=== PATIENT | female | born 1940 ===

== ENCOUNTER 2017-05-08 10:28 | Inpatient (IN) | payer MEDICARE, BC ==
[2017-05-08 10:29] VITALS: BMI 31.2
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
[2017-05-08 11:31] LABS: BASO # 0.03 K/mm3 (0.0-2.0); BASO % 0.3 % (0.0-3.0); EOS # 0.7 (0.0-0.7); EOS % 6.7 % (1.5-5.0); GRAN # 6.85 (1.4-6.5); GRAN % 70.6 % (50.0-68.0); HEMATOCRIT 40.7 % (36.0-48.0); LYMPH # 1.7 (1.2-3.4); LYMPH % 17.5 % (22.0-35.0); MEAN CELL VOLUME 91.7 fl (80.0-105.0); MEAN CORPUSCULAR HEMOGLOBIN 29.1 pg (25.0-35.0); MEAN CORPUSCULAR HGB CONC 31.7 g/dl (31.0-37.0); MONO # 0.5 (0.1-0.6); MONO % 4.9 % (1.0-6.0); RED CELL DISTRIBUTION WIDTH 13.6 % (11.5-14.5); WHITE BLOOD COUNT 9.7 10^3/ul (4.5-11.0)
[2017-05-08 11:37] LABS: ALB/GLOB RATIO 1.3 (1.1-1.8); BILIRUBIN,TOTAL 0.6 mg/dL (0.2-1.3); CALCIUM 9.4 mg/dL (8.4-10.5); POTASSIUM 4.3 mmol/L (3.6-5.0); TOTAL PROTEIN 6.5 g/dL (5.8-8.3)
[2017-05-08] MEDS: Albuterol-Ipratrop 3 mg / 0.5 (3 ml) UD IH SCH ×3 (11:37→12:10)
[2017-05-08 11:49] LABS: TROPONIN I 0.04 ng/mL
--- NOTE | 2017-05-08 12:44 | RAD ---
HISTORY: cough x 2 weeks COMPARISON: Comparison is made to 08/06/2016 FINDINGS: LUNGS: Prominent hilar and perihilar small opacities may represent bronchial thickening. The possibility of bronchitis cannot be excluded. No radiographic evidence of pneumonia. PLEURA: No significant pleural effusion identified, no pneumothorax apparent. CARDIOVASCULAR: Normal. OSSEOUS STRUCTURES: No significant abnormalities. VISUALIZED UPPER ABDOMEN: Normal. OTHER FINDINGS: None. IMPRESSION: Suspicious for central bronchial wall thickening. No radiographic evidence of pneumonia.
[2017-05-08 12:47] LABS: URINE BILIRUBIN NEGATIVE (NEGATIVE); URINE BLOOD NEGATIVE (NEGATIVE); URINE GLUCOSE (UA) NEGATIVE (NEGATIVE); URINE KETONE NEGATIVE (NEGATIVE); URINE LEUKOCYTE ESTERASE NEGATIVE Leu/uL (NEGATIVE); URINE PROTEIN NEGATIVE mg/dL (<30 mg/dL); URINE UROBILINOGEN 0.2 E.U./dL (<1 E.U./dL)
[2017-05-08 12:49] LABS: URINE APPEARANCE CLEAR (CLEAR); URINE COLOR YELLOW (YELLOW)
[2017-05-08] MEDS ORDERED: Albuterol 0.083% Inhal Sol (2.5 mg/3 mL) UD IH PRN (20:37)
[2017-05-08] MEDS: Latanoprost 2.5 ml Opht Soln OD SCH (21:04)
[2017-05-08] MEDS: Brimonidine 0.15% 50 DROP/5 ML BOTTLE OD SCH (21:04)
[2017-05-09] MEDS ORDERED: Albuterol 0.083% Inhal Sol (2.5 mg/3 mL) UD IH SCH
--- NOTE | 2017-05-09 02:59 | CP.PCM.PN ---
Subjective - Date & Time of Evaluation Date of Evaluation: 05/09/17 Time of Evaluation: 02:59 - Subjective Subjective: Patient was seen at bedside because she had runs of VTACH, 5 & 6 beats. Complains of some sob and is receiving nebulizer treatment now. Has no other complaints. Denies chest pain, nausea , sweating , palpitation. Medical record was reviewed. Last troponin was 0.04. This 77 year old woman was admitted with productive cough and sob, CHF/COPD exacerbation. Has PMH of COPD,DM II, CHF, obesity, EDNA, CVA, carpal tunnel syndrome, cataract , tonsillectomy. Objective - Vital Signs/Intake and Output Vital Signs (last 24 hours): Temp Pulse Resp BP Pulse Ox 98.1 F 87 20 115/46 L 95 05/09/17 00:01 05/09/17 00:01 05/09/17 00:01 05/09/17 00:01 05/09/17 00:01 - Medications Medications: Current Medications Albuterol Sulfate (Albuterol 0.083% Inhal Isabel (2.5 Mg/3 Ml) Ud) 2.5 mg IH Q6 [facility] Aspirin (Ecotrin) 81 mg PO DAILY [facility] Brimonidine Tartrate (Alphagan P 0.15% Opht) 1 drop OD BID [facility] Last Admin: 05/08/17 21:04 Dose: 1 drop Glipizide (Glucotrol) 5 mg PO DAILY [facility] Home Med (Home Med) 1 unit IH DAILY [facility] Azithromycin 250 mg/ Sodium (Chloride) 250 mls @ 167 mls/hr IVPB DAILY [facility] PRN Reason: Protocol Latanoprost (Xalatan Opht) 0 ml OD HS [facility] Last Admin: 05/08/17 21:04 Dose: 2.5 ml Metformin HCl (Glucophage Xr) 500 mg PO DAILY [facility] Multivitamins (Thera Tab) 1 tab PO DAILY [facility] Psyllium Hydrophilic Mucilloid (Hydrocil Instant) 1 pkt PO DAILY [facility] Tiotropium [place] (Spiriva) 18 mcg IH DAILY [facility] - Labs Labs: Most Recent Lab Values WBC 11.5 10^3/ul (4.5-11.0) H 05/09/17 03:07 RBC 4.41 10^6/uL (3.5-6.1) 05/09/17 03:07 Hgb 12.8 g/dL (12.0-16.0) 05/09/17 03:07 Hct 39.8 % (36.0-48.0) 05/09/17 03:07 MCV 90.2 fl (80.0-105.0) 05/09/17 03:07 MCH 29.0 pg (25.0-35.0) 05/09/17 03:07 MCHC 32.2 g/dl (31.0-37.0) 05/09/17 03:07 RDW 13.3 % (11.5-14.5) 05/09/17 03:07 Plt Count 228 10^3/uL (120.0-450.0) 05/09/17 03:07 MPV 11.7 fl (7.0-11.0) H 05/09/17 03:07 Gran % 92.4 % (50.0-68.0) H 05/09/17 03:07 Lymph % (Auto) 4.8 % (22.0-35.0) L 05/09/17 03:07 [place] % (Auto) 2.8 % (1.0-6.0) 05/09/17 03:07 Eos % (Auto) 0.0 % (1.5-5.0) L 05/09/17 03:07 Baso % (Auto) 0.0 % (0.0-3.0) 05/09/17 03:07 Gran # 10.60 (1.4-6.5) H 05/09/17 03:07 Lymph # 0.6 (1.2-3.4) L 05/09/17 03:07 [place] # 0.3 (0.1-0.6) 05/09/17 03:07 Eos # 0.0 (0.0-0.7) 05/09/17 03:07 Baso # 0.00 K/mm3 (0.0-2.0) 05/09/17 03:07 Sodium 141 mmol/L (132-148) 05/08/17 11:15 Potassium 4.3 mmol/L (3.6-5.0) 05/08/17 11:15 Chloride 103 mmol/L (98-107) 05/08/17 11:15 Carbon Dioxide 32 mmol/L (21-33) 05/08/17 11:15 Anion Gap 10 (10-20) 05/08/17 11:15 BUN 24 mg/dL (7-21) H 05/08/17 11:15 Creatinine 1.1 mg/dL (0.7-1.2) 05/08/17 11:15 Est GFR ( Amer) 58 05/08/17 11:15 Est GFR (Non-Af Amer) 48 05/08/17 11:15 Random Glucose 184 mg/dL (70-110) H 05/08/17 11:15 Calcium 9.4 mg/dL (8.4-10.5) 05/08/17 11:15 Total Bilirubin 0.6 mg/dL (0.2-1.3) 05/08/17 11:15 AST 24 U/L (14-36) 05/08/17 11:15 ALT 35 U/L (7-56) 05/08/17 11:15 Alkaline Phosphatase 66 U/L (38-126) 05/08/17 11:15 Lactate Dehydrogenase 384 U/L (333-699) 05/08/17 11:15 Total Creatine Kinase 26 U/L (35-230) L 05/08/17 11:15 Troponin I 0.04 ng/mL D 05/08/17 11:15 NT-Pro-B Natriuret Pep 1120 pg/mL (0-450) H 05/08/17 11:15 Total Protein 6.5 g/dL (5.8-8.3) 05/08/17 11:15 Albumin 3.7 g/dL (3.0-4.8) 05/08/17 11:15 Globulin 2.8 gm/dL 05/08/17 11:15 Albumin/Globulin Ratio 1.3 (1.1-1.8) 05/08/17 11:15 Urine Color Yellow (YELLOW) 05/08/17 11:10 Urine Appearance Clear (CLEAR) 05/08/17 11:10 Urine pH 6.0 (4.7-8.0) 05/08/17 11:10 Ur Specific [place] 1.020 (1.005-1.035) 05/08/17 11:10 Urine Protein Negative mg/dL (<30 mg/dL) 05/08/17 11:10 Urine Glucose (UA) Negative mg/dL (NEGATIVE) 05/08/17 11:10 Urine Ketones Negative mg/dL (NEGATIVE) 05/08/17 11:10 Urine Blood Negative (NEGATIVE) 05/08/17 11:10 Urine Nitrate Negative (NEGATIVE) 05/08/17 11:10 Urine Bilirubin Negative (NEGATIVE) 05/08/17 11:10 Urine Urobilinogen 0.2 E.U./dL (<1 E.U./dL) 05/08/17 11:10 Ur Leukocyte Esterase Negative [place]/uL (NEGATIVE) 05/08/17 11:10 - Constitutional Appears: Well, No Acute Distress - Head Exam Head Exam: ATRAUMATIC, NORMAL INSPECTION, NORMOCEPHALIC Additional comments: Obese. - Eye Exam Eye Exam: Normal appearance - ENT Exam ENT Exam: Normal External Ear Exam - Neck Exam Neck Exam: Normal Inspection - Respiratory Exam Respiratory Exam: NORMAL BREATHING PATTERN - Cardiovascular Exam Cardiovascular Exam: absent: JVD - GI/Abdominal Exam GI & Abdominal Exam: absent: Distended - Rectal Exam Rectal Exam: Deferred - Exam Additional comments: Deferred. - Extremities Exam Extremities Exam: Normal Inspection - Back Exam Back Exam: NORMAL INSPECTION - Neurological Exam Neurological Exam: Alert, Oriented x3 - Psychiatric Exam Psychiatric exam: Normal Affect, Normal Mood - Skin Skin Exam: Normal Color Assessment and Plan - Assessment and Plan (Free Text) Assessment: Non sustained ventricular tachycardia. R/O Electrolyte imbalance. R/O elevation of troponin. CHF/COPD exacerbation. DM II. HTN. Obesity. EDNA. Plan: Cancel AM labs. CBC,CMP , troponin , magnesium, phosphorous levels stat. EKG-----------> NSR, new inversion of T wave in lead III, ? avF. Continue present management.
[2017-05-09 03:23] LABS: GRAN % 92.4 % (50.0-68.0); HEMATOCRIT 39.8 % (36.0-48.0); LYMPH # 0.6 (1.2-3.4); LYMPH % 4.8 % (22.0-35.0); MEAN CELL VOLUME 90.2 fl (80.0-105.0); MEAN CORPUSCULAR HGB CONC 32.2 g/dl (31.0-37.0); MEAN PLATELET VOLUME 11.7 fl (7.0-11.0); MONO # 0.3 (0.1-0.6); MONO % 2.8 % (1.0-6.0); PLATELET COUNT 228 10^3/uL (120.0-450.0); RED CELL DISTRIBUTION WIDTH 13.3 % (11.5-14.5); WHITE BLOOD COUNT 11.5 10^3/ul (4.5-11.0)
[2017-05-09 04:01] LABS: ALB/GLOB RATIO 1.2 (1.1-1.8); BILIRUBIN,TOTAL 0.7 mg/dL (0.2-1.3); CALCIUM 9.5 mg/dL (8.4-10.5); MAGNESIUM 1.5 mg/dL (1.7-2.2); PHOSPHOROUS 3.4 mg/dL (2.5-4.5); POTASSIUM 5.2 mmol/L (3.6-5.0); TOTAL PROTEIN 6.7 g/dL (5.8-8.3)
[2017-05-09] MEDS ORDERED: Sod Polystyrene Sulf 15 gm/60 ml Susp PO ONE (04:08)
[2017-05-09] MEDS ORDERED: Magnesium Sulfate 1 gm in D5W 1 GM/100 ML BAG IVPB ONE (04:08)
[2017-05-09 04:12] LABS: TROPONIN I 0.03 ng/mL
[2017-05-09 05:50] LABS: BAND 1 % (0-2); NEUTROPHIL 94 % (50.0-70.0); PLATELET ESTIMATE NORMAL (NORMAL)
[2017-05-09] MEDS ORDERED: Levalbuterol 0.63 MG/3 ML Inhal Soln UD IH PRN (06:54)
--- NOTE | 2017-05-09 07:31 | CON ---
PULMONARY CONSULTATION REASON FOR CONSULTATION: Chronic obstructive pulmonary disease. REFERRING PHYSICIAN: Dr. Taj York. HISTORY OF PRESENT ILLNESS: The patient is a 77-year-old female, with past medical history significant for chronic obstructive pulmonary disease, asthma, obstructive sleep apnea, diabetes mellitus, who presents to [facility] with main complaints of shortness of breath at rest, dyspnea on exertion, cough, and sputum production for the past 2 weeks. There is no history of chest pain, coughing up of blood, or chest pain-made worse with deep respirations. There is no history of temperatures, chills or infectious exposure. There is no history of night sweats, weight loss or appetite change prior to the above events. No history of leg or calf pains. No history of syncope or diaphoresis. No history of recent travel or trauma. REVIEW OF SYSTEMS: No history of nausea, vomiting or diarrhea. No acute urinary symptoms. No new neurologic or musculoskeletal complaints. Rest of the review of systems is negative. ALLERGIES: PENICILLIN AND LYRICA. SOCIAL HISTORY: Negative for tobacco and negative for alcohol. FAMILY HISTORY: No inheritable diseases. HOME MEDICATIONS: Include metformin, glipizide, aspirin, Combivent, Anoro Ellipta, vitamin, Spiriva. PHYSICAL EXAMINATION: GENERAL: The patient is not short of breath at the time of my examination. She is not using accessory muscles for breathing. VITAL SIGNS: Temperature is 97.6, pulse 83, respirations 18/20, blood pressure 160/67. Oxygen saturation on nasal cannula is between 95% to 100%. HEENT: Normocephalic, atraumatic. NECK: No JVD. CARDIOVASCULAR: Systolic ejection murmur at the lower left sternal border. No S3 gallop. LUNGS: Decreased breath sounds at the bases. Mild bilateral rhonchi and wheezing are appreciated. EXTREMITIES: Mild edema. No cyanosis, no clubbing. Calves are nontender to palpation. GI: Abdomen is soft, nontender and nondistended. Bowel sounds are positive. SKIN: No acute rash. NEUROLOGIC: Limited at the present time. PERTINENT LABORATORY DATA: Chest x-ray was done yesterday and reviewed. There is no acute disease. CBC: White count 11.5K, hemoglobin 12.8, hematocrit 39.8, platelets of 228. Initial white count 9.7K. Complete metabolic profile: Potassium 5.2, BUN 33, glucose 234, magnesium 1.5, troponin 0.03. Rest of the metabolic profile is within normal limits. Initial troponin 0.04. IMPRESSION: 1. Acute bronchitis. 2. Asthma. 3. Chronic obstructive pulmonary disease. 4. Obstructive sleep apnea. 5. Intermediate troponin. 6. Nonsustained ventricular tachycardia. PLAN: The patient presents to [facility] with a 2-week history of worsening pulmonary symptoms. I did review the chest x-ray as above. There is no active disease present. I have also reviewed the laboratory data. A mild leukocytosis is noted. Keep in mind--that the initial white count was normal. Thus, the mild rise in the white count is probably secondary to the intravenous steroids. I have also reviewed the metabolic profile. An intermediate troponin is noted. In addition, I did review all of the notes in the computer. Apparently, earlier this morning, the patient did have a short run of nonsustained ventricular tachycardia. Cardiology evaluation with Dr. Clark has been ordered. As a first step, I will change the nebulizer treatments to Xopenex-given the above cardiac arrhythmias. I will also add inhaled steroids and low-dose intravenous steroids-in an attempt to treat the acute bronchospasm. The patient also remains on antibiotic therapy, which I would continue for now. The patient does state to feeling much better this morning-compared to the past few days. She is clinically improved. I will discuss the above with the attending physician later this morning. Thank you very much for this pulmonary consultation. Gonsalo Lawrence MD MTDYashira
[2017-05-09] MEDS: Budesonide 0.5 mg/2 ml Inhal Susp UD IH SCH ×2 (07:43→21:18)
[2017-05-09] MEDS: Levalbuterol 0.63 MG/3 ML Inhal Soln UD IH SCH ×3 (07:43→21:18)
[2017-05-09] MEDS: Multivitamin Therapeutic Tab PO SCH (09:05)
[2017-05-09] MEDS: Brimonidine 0.15% 50 DROP/5 ML BOTTLE OD SCH ×2 (09:05→17:20)
[2017-05-09] MEDS: Azithromycin 250 MG in Sodium Chloride 0.9% 250 ML IVPB SCH (09:06)
[2017-05-09] MEDS: Tiotropium 18 mcg Cap For Inhalation IH SCH (09:07)
[2017-05-09] MEDS: MethylPREDNISolone 40 mg Vial IVP SCH ×2 (09:07→21:48)
[2017-05-09] MEDS: ALBUTEROL IH SCH (09:09)
[2017-05-09] MEDS: IPRATROPIUM IH SCH (09:09)
[2017-05-09] MEDS: Psyllium Packet PO SCH (09:49)
--- NOTE | 2017-05-09 10:16 | CARD ---
APPROVED REPORT EKG Measurement Heart [id number] <Conclusion> Normal sinus rhythm Left axis deviation Minimal voltage criteria for LVH, may be normal variant Septal infarct, age undetermined Possible Lateral infarct, age undetermined Abnormal ECG
--- NOTE | 2017-05-09 13:09 | PN ---
DAILY PROGRESS NOTE DATE: SUBJECTIVE: The patient is a 77-year-old female who was admitted yesterday with COPD exacerbation. She is known to have a history of asthma/COPD as well as sleep apnea. She has a history of [id number] diabetes mellitus. She was evaluated by Dr. García, the recovery coach and Dr. Lawrence, the shipping support clerk. CURRENT MEDICATIONS: Include Alphagan eye drops as well as Xalatan eye drops. She is on azithromycin 250 mg intravenously once a day. She is continuing with aspirin, Glucophage, Glucotrol, and psyllium. She was started on Pulmicort Respules every 12 hours and Solu-Medrol 40 mg IV q.12 hours. When seen today, the patient is sitting up at bedside. She is feeling well. She does not appear in any distress or short of breath. PHYSICAL EXAMINATION: LUNGS: Clear on pulmonary auscultation. HEART: Regular. ABDOMEN: Soft and nontender. ASSESSMENT AND PLAN: We are continuing to follow the patient closely. We are encouraging increased physical activity with ambulation around the nursing station. Case to be discussed with Cardiology and Pulmonary. Taj York MD
--- NOTE | 2017-05-09 13:39 | HP ---
HISTORY OF PRESENT ILLNESS: The patient is a 77-year-old female who presents to the emergency room complaining of several weeks of productive cough, increasing shortness of breath and dyspnea on exertion. The patient states that the worse of her symptoms occurred at night while in bed, usually started around 3:00 in the morning. She noted wheezing at that time. However, through most of the day, she was feeling fine. She was seen in office visit over the past week complaining of shortness of breath. She did not mention productive cough at that time and was started on Spiriva. However, her symptoms persisted; therefore, she presented to the emergency room to be evaluated and admitted. PAST MEDICAL HISTORY: The patient is known to have a past medical history positive for asthma/COPD, positive for sleep apnea and noninsulin-dependent diabetes mellitus. She is status post fracture of the left shoulder with surgical repair, status post tonsillectomy and adenoidectomy and status post total left knee replacement. She also has a history of carpel tunnel syndrome with paresthesias of both hands at times. MEDICATIONS: At the time of admission include albuterol nebulizer which she uses 4 times a day as needed, Glucotrol 5 mg, Xalatan ophthalmic and Alphagan ophthalmic eye drops, aspirin 81 mg once a day, Combivent Respimat, multivitamin, Psyllium fiber and Spiriva Respimat. ALLERGIES: SHE IS KNOWN TO BE ALLERGIC TO PENICILLIN AND LYRICA WHICH HAS CAUSED RASHES IN THE PAST. SOCIAL HISTORY: She never smoked. She is a known alcoholic drinker. REVIEW OF SYSTEMS: Positive only for urinary incontinence in addition to her symptoms as mentioned above. PHYSICAL EXAMINATION: GENERAL: The patient is awake, alert and oriented. VITAL SIGNS: She is afebrile at 98.4 degrees Fahrenheit, blood pressure of 137/80 and heart rate of 79 beats per minute. LUNGS: Show scattered bilateral rales and rhonchi. HEART: Regular. No murmur is appreciated. ABDOMEN: Round, soft and nontender. EXTREMITIES: Free of cyanosis, clubbing or edema. NEUROLOGIC: She is awake, alert and oriented. No focal neurological signs. LABORATORY DATA: Shows white blood cells count to be 9.7, hemoglobin and hematocrit are 12.9 and 40.7, platelet count is 222. Sodium is 141, potassium 4.3, blood urea nitrogen 24, creatinine 1.1, nonfasting glucose is 184. Her troponin is 0.04. BNP is 1120. Chest x-ray is suggestive of bronchitis. IMPRESSION AND PLAN: The patient is admitted. The nebulizer treatments are ordered. We are also asking Dr. Paiz and Dr. Lawrence to consult for bronchitis as well as Dr. Clark and Dr. García, payroll consultant, for congestive heart failure secondary to the elevated BNP. The patient will be followed closely. Taj York MD MTDD
[2017-05-09] MEDS: Enoxaparin 40 mg Syringe SC SCH (14:56)
--- NOTE | 2017-05-09 23:25 | CARD ---
APPROVED REPORT EKG Measurement Heart [id number] <Conclusion> Normal sinus rhythm Left axis deviation Minimal voltage criteria for LVH, may be normal variant Septal infarct, age undetermined Possible Lateral infarct, age undetermined Abnormal ECG
[2017-05-10] MEDS: Levalbuterol 0.63 MG/3 ML Inhal Soln UD IH SCH ×4 (04:24→20:15)
[2017-05-10] MEDS: Latanoprost 2.5 ml Opht Soln OD SCH ×2 (04:52→23:45)
[2017-05-10 06:50] LABS: ALB/GLOB RATIO 1.4 (1.1-1.8); CALCIUM 9.2 mg/dL (8.4-10.5); MAGNESIUM 1.7 mg/dL (1.7-2.2); PHOSPHOROUS 4.4 mg/dL (2.5-4.5); POTASSIUM 4.6 mmol/L (3.6-5.0); TOTAL PROTEIN 6.5 g/dL (5.8-8.3)
[2017-05-10 07:22] LABS: BILIRUBIN,TOTAL 0.7 mg/dL (0.2-1.3)
--- NOTE | 2017-05-10 07:55 | PN ---
PULMONARY PROGRESS NOTE SUBJECTIVE: The patient appears comfortable this morning. She is not short of breath at rest. PHYSICAL EXAMINATION: VITAL SIGNS: Temperature is 98.1, pulse 60, respirations 18, blood pressure 153/74. Oxygen saturation on room air is now 95%. HEENT: Normocephalic, atraumatic. NECK: No JVD. CARDIOVASCULAR: Systolic ejection murmur at the lower left sternal border. No S3 gallop. LUNGS: Better breath sounds at the bases. Less rhonchi. Less wheezing. EXTREMITIES: Mild edema. No cyanosis, no clubbing. Calves are nontender to palpation. GI: Abdomen is soft, nontender and nondistended. Bowel sounds are positive. SKIN: No acute rash. NEUROLOGIC: Limited at the present time. IMPRESSION: 1. Acute bronchitis. 2. Asthma. 3. Chronic obstructive pulmonary disease. 4. Obstructive sleep apnea. 5. Intermediate troponin. 6. Nonsustained ventricular tachycardia. PLAN: The patient appears much more comfortable this morning. She is not short of breath at rest. She does state to feeling much better overall. On physical exam, her bronchospasm is certainly less. In addition, the alveolar-arterial gradient is also less. Oxygen saturation is now 95% on room air. I will continue with the current nebulizer treatments and decrease the intravenous steroids this morning. The patient remains on antibiotic therapy. There are no temperatures noted. Cardiology evaluation with Dr. Clark has been ordered. His consultation is not yet on the chart. Clinical status of the patient is definitely improved-compared to the initial presentation. I will discuss the above with the attending physician. Gonsalo Lawrence MD MTDD
[2017-05-10] MEDS: Budesonide 0.5 mg/2 ml Inhal Susp UD IH SCH ×2 (07:57→20:15)
--- NOTE | 2017-05-10 08:02 | CON ---
DATE: 05/09/2017 REASON FOR CONSULTATION: Cardiac evaluation, admitted with shortness of breath. BRIEF CLINICAL HISTORY: The patient is a 77-year-old female with past medical history significant for obesity, COPD, asthma, sleep apnea, type 2 diabetes came in with complaint of several weeks history of productive cough, increasing shortness of breath, and dyspnea on exertion. The patient denies any chest pain, shortness of breath, or any palpitation. She is noted to have the wheezing also. PAST MEDICAL HISTORY: Significant for COPD, asthma, diabetes mellitus, and obesity. PAST SURGICAL HISTORY: Significant for tonsillectomy, adenoidectomy in the younger age. Later on, the patient had 2 surgeries on the left knee, 1 surgery on the right, history of fracture of left shoulder and surgical repair. PREVIOUS CARDIAC WORKUP: As follows: The patient had an echocardiography done on 04/12/2016, that shows an ejection fraction reported as 35% to 40%, trace aortic regurgitation, trace mitral regurgitation, trace tricuspid regurgitation with RV systolic pressure of 30. The patient had stress test and myocardial perfusion study that shows ejection fraction of 24%, evidence of myocardial perfusion, heterogenous activity most likely secondary to motion during acquisition of attenuation. LV dysfunction with diffuse hypokineses, findings suggestive of cardiomyopathy. In comparison with last study on 11/15/2013, these changes appear new. The patient used to follow up with Dr. Jenkins in the past. In 2013, also his stress test was 38% by Dr. Jenkins. ALLERGIES: PENICILLIN, AUGMENTIN, AND GABAPENTIN. FAMILY HISTORY: Father of emphysema. Mother has breast CA. CURRENT MEDICATIONS: The patient is taking Spiriva, vitamins, metformin, gabapentin, glipizide, aspirin, and albuterol. REVIEW OF SYSTEMS: As per HPI. PHYSICAL EXAMINATION VITAL SIGNS: As follows: Temperature afebrile, heart rate 75, and blood pressure 176/87. HEENT: PERRLA intact. NECK: Supple. No carotid bruits or thyromegaly. CHEST: Clear to auscultation. HEART: S1 and S2. Regular. ABDOMEN: Soft. EXTREMITIES: Clubbing and cyanosis are negative. LABORATORY DATA: Blood workup as follows: WBC 11.5, hemoglobin 12.8, hematocrit 39.8, and platelet count 228. Chemistry shows sodium 130, potassium 5.2, chloride 101, carbon dioxide of 28, anion gap of 12, BUN 33, creatinine 1.1. Troponin 0.01 times negative. BNP is 1120. IMPRESSION AND PLAN: Acute exacerbation of chronic obstructive pulmonary disease, chronic obstructive pulmonary disease asthma, diabetes mellitus, hypertension, hyperlipidemia, cardiomyopathy, last echocardiography in 2013 was 38%, recent echocardiography also showed ejection fraction of 35%; stress test shows cardiomyopathy, no reversible ischemia. Given the multiple risk factors for coronary artery disease, we will discuss with the patient, cardiac catheterization discussed briefly, the patient is not willing, we will discuss again. If the patient agrees, after that acute asthma subsided, we will consider cardiac catheterization. In the interim, continue aggressive treatment for COPD. Continue baby aspirin. Continue DVT prophylaxis. We will get lipid profile, TSH, hemoglobin A1c. Also we will get echo to assess LV function. We will discuss with you. Thank you for providing us the opportunity in taking care of the patient, Jazmyn Coates. Anne Clark MD
[2017-05-10] MEDS: Tiotropium 18 mcg Cap For Inhalation IH SCH (09:34)
[2017-05-10] MEDS: ALBUTEROL IH SCH (09:34)
[2017-05-10] MEDS: IPRATROPIUM IH SCH (09:34)
[2017-05-10] MEDS: MethylPREDNISolone 40 mg Vial IVP SCH ×2 (09:35→23:43)
[2017-05-10] MEDS: Multivitamin Therapeutic Tab PO SCH (09:35)
[2017-05-10] MEDS: Azithromycin 250 MG in Sodium Chloride 0.9% 250 ML IVPB SCH (09:36)
[2017-05-10] MEDS: Enoxaparin 40 mg Syringe SC SCH (09:37)
[2017-05-10] MEDS: Brimonidine 0.15% 50 DROP/5 ML BOTTLE OD SCH ×2 (09:39→17:00)
--- NOTE | 2017-05-10 09:49 | PQF CHF ---
This form is a permanent part of the medical record Dr. Clark, Documentation reflects admission for SOB with cough and congestion. Patient has hx COPD. CXR on admission shows bronchitis as per pulmonary and attending. BNP elevated and patient treated with Lasix IV. To have echo. Please specify if CHF (type and severity) was present on admission or is an active diagnosis. Clarification of your documentation is requested to better reflect the severity of illness and intensity of treatment of your patient. Indicators present [x] Diagnosis of CHF and/or history of CHF [x] BNP > 200 [] Imaging Finding of Pulmonary Edema /Pleural Effusions [] Fluid/Volume Overload [] Pitting edema [x] Ejection Fraction < 40% (Indicative of Systolic Heart Failure) [] Ejection Fraction > 40% (Indicative of Diastolic Heart Failure) [x] Dyspnea / Orthopenea / Paroxysmal Nocturnal Dyspnea [] Other: Location in the medical record that reflects the above clinical findings: [] Treatment Provided: [x] Lasix IV PHYSICIAN'S RESPONSE Based on your medical judgment of the clinical indicators outlined above, are you treating this patient for a known or suspected: [] Acute CHF [] Systolic [] Diastolic [] Combined [] Chronic CHF [] Systolic [] Diastolic [] Combined [x] Acute on Chronic CHF [x]Systolic [] Diastolic [] Combined [] CHF due hypertension [] Acute systolic []Chronic systolic [] Acute/ chronic systolic [] Other, please indicate: [] [] If Unable to Determine, please check the box, sign and date. Present On Admission (POA) Indicator: [] Present at the time of admission [] Not present at the time of admission [] Clinically Undetermined In responding to this query, please exercise your independent professional judgment. The fact that a question is asked does not imply that any particular answer is desired or expected. Thank you for your clarification on this documentation. If you have any questions please call:[ ] * Thank you, [ ]David Colbert [facility] #[id number] instrument lens grinder apprentice [place]
[2017-05-10] MEDS: Psyllium Packet PO SCH (10:08)
[2017-05-11] MEDS: Levalbuterol 0.63 MG/3 ML Inhal Soln UD IH SCH ×4 (01:43→20:02)
[2017-05-11 06:23] LABS: ALB/GLOB RATIO 1.4 (1.1-1.8); BILIRUBIN,TOTAL 0.7 mg/dL (0.2-1.3); CALCIUM 9.5 mg/dL (8.4-10.5); POTASSIUM 4.1 mmol/L (3.6-5.0); TOTAL PROTEIN 6.6 g/dL (5.8-8.3)
[2017-05-11] MEDS: Budesonide 0.5 mg/2 ml Inhal Susp UD IH SCH ×2 (07:26→20:02)
--- NOTE | 2017-05-11 08:02 | PN ---
PULMONARY PROGRESS NOTE SUBJECTIVE: The patient appears comfortable at rest. She is not short of breath. PHYSICAL EXAMINATION: VITAL SIGNS: Temperature is 98.0, pulse is 60, respirations 18, blood pressure 149/73. Oxygen saturation on room air is 96%. HEENT: Normocephalic, atraumatic. NECK: No JVD. CARDIOVASCULAR: Systolic ejection murmur at the lower left sternal border. No S3 gallop. LUNGS: Improved breath sounds at the bases. Less rhonchi. No wheezing this morning. EXTREMITIES: Mild edema. No cyanosis, no clubbing. Calves are nontender to palpation. GI: Abdomen is soft, nontender and nondistended. Bowel sounds are positive. SKIN: No acute rash. NEUROLOGIC: Limited at the present time. IMPRESSION: 1. Acute bronchitis. 2. Asthma. 3. Chronic obstructive pulmonary disease. 4. Obstructive sleep apnea--noncompliant with CPAP. 5. Intermediate troponin. 6. Nonsustained ventricular tachycardia. PLAN: The patient appears comfortable this morning. She is not short of breath at rest. She does remain mildly dyspneic on exertion. However, she does state to feeling much better overall. On physical exam, her bronchospasm continues to slowly resolve. I will continue with the current nebulizer treatments and low-dose intravenous steroids (decreased yesterday) for now. I also spoke with the patient in reference to her EDNA(CPAP noncompliance). Cardiology evaluation with Dr. Clark is noted. The patient is for probable cardiac catheterization in the near future. Her clinical status has definitely improved-compared to the initial presentation. I will discuss the above with the attending physician. Gonsalo Lawrence MD [place]
--- NOTE | 2017-05-11 08:39 | PN ---
DATE: 05/10/2017 REASON FOR CONSULTATION: Followup cardiac evaluation, shortness of breath, CHF, rule out CAD. Patient denies any chest pain, shortness of breath, any palpitations. PHYSICAL EXAMINATION VITAL SIGNS: As follows; temperature afebrile, heart rate 88, blood pressure 131/90. HEENT: PERRLA intact. NECK: Supple. No carotid bruits or thyromegaly. CHEST: Clear to auscultation. HEART: S1 and S2 regular. ABDOMEN: Soft. EXTREMITIES: Clubbing and cyanosis negative. LABORATORY DATA: Blood work as follows; WBC 11.5, hemoglobin 12.8, hematocrit 39.8, platelet count 228. Chemistry shows sodium , potassium 4.0, chloride 100, carbon dioxide 33, anion gap of 11, BUN 38, creatinine 1.3. Troponin 0.04. IMPRESSION: Acute decompensated congestive heart failure, acute on chronic secondary to systolic dysfunction. Last echo dated 04/02/2016 shows ejection 35% to 40%, trace aortic regurgitation, trace mitral regurgitation, tricuspid regurgitation, RV systolic pressure 30. Patient has a stress test, myocardial perfusion test shows ejection fraction 24%. Heterogenous activity most likely secondary to motion artifact, LV dysfunction, diffuse hypokinesis suggestive of cardiomyopathy. Patient last stress test, ejection fraction 38%, patient also has acute exacerbation of chronic obstructive pulmonary disease, still wheezing. RECOMMENDATIONS: Discussed with the patient in length yesterday and today. Patient agreed for cardiac catheterization. Patient has still active wheezing. We will continue treatment for COPD. When the symptoms of acute bronchitis and COPD subsides, we will consider cardiac catheterization, discussed with the patient, possibly on . We will start Plavix. Continue DVT prophylaxis we ordered yesterday. We will change the Lasix after two days dose to p.o. Monitor electrolytes and if renal function remain stable, we will do the cardiac catheterization on . Try to this Tuesday, Ms. , telephone [phone], to update the patient's condition and reference for cardiac catheter possibly on . We will keep n.p.o. after midnight. We will start some Mucomyst as well as IV fluid, Mucomyst from tomorrow, and IV hydration from because patient has baseline and after Lasix, it went up to 1.3. We will monitor electrolytes as well tomorrow and change the Lasix to p.o. from a.m. Anne Clark MD
[2017-05-11] MEDS: Enoxaparin 40 mg Syringe SC SCH (09:07)
[2017-05-11] MEDS: Multivitamin Therapeutic Tab PO SCH (09:09)
[2017-05-11] MEDS: Tiotropium 18 mcg Cap For Inhalation IH SCH (09:09)
[2017-05-11] MEDS: Brimonidine 0.15% 50 DROP/5 ML BOTTLE OD SCH ×2 (09:09→17:49)
[2017-05-11] MEDS: ALBUTEROL IH SCH (09:10)
[2017-05-11] MEDS: IPRATROPIUM IH SCH (09:10)
[2017-05-11] MEDS: Psyllium Packet PO SCH (09:11)
[2017-05-11] MEDS: MethylPREDNISolone 40 mg Vial IVP SCH ×2 (09:15→22:10)
[2017-05-11] MEDS: Azithromycin 250 MG in Sodium Chloride 0.9% 250 ML IVPB SCH (10:33)
[2017-05-11] MEDS: Acetylcysteine 20% Inhal Soln (4ml) PO SCH (17:50)
--- NOTE | 2017-05-11 18:11 | PN ---
DATE: 05/11/2017 LOCATION: The patient is in room 270, bed 1. REASON FOR CONSULTATION AND FOLLOWUP: Shortness of breath, CHF, rule out CAD. SUBJECTIVE: The patient is feeling better today. Denies any chest pain. She states the shortness of breath is better and she has some cough. She denies any palpitations. PHYSICAL EXAMINATION: VITAL SIGNS: Blood pressure 136/69, respirations 20, pulse 64 and temperature 99.2. HEENT: Head is normocephalic. Eyes; pupils normal. Conjunctivae normal. Nose and throat normal. NECK: JVP low. Carotid equal. THORAX: AP diameter normal. LUNGS: Few wheezing sound. No rales. CARDIOVASCULAR: S1 and S2. ABDOMEN: Soft. No tenderness. No organomegaly. Bowel sounds normal. EXTREMITIES: No clubbing. No cyanosis. LABORATORY DATA: WBC 11.5, hemoglobin 12.8, hematocrit 39.8 and platelets 228. Sodium 138, potassium 4.1, BUN 46, creatinine 1.2, random sugar 216, AST and ALT normal, total protein and albumin normal. DIAGNOSES: Acute decompensated congestive heart failure, acute on chronic secondary to systolic dysfunction. Last echocardiogram on 04/02/2016 showed ejection fraction of 35% to 40% and right ventricular systolic pressure of 30 mmHg. The patient had a stress test which showed ejection fraction of 24% and heterogenous activity most likely secondary to motion artifact. On the previous stress test, the patient's ejection fraction was 38%. Exacerbation of chronic obstructive pulmonary disease. PLAN: The patient already had a detailed discussion with Dr. Clark yesterday and the patient agreed for cardiac catheterization since the patient's LV function is deteriorating. We will try to arrange cardiac catheterization tomorrow, , and we will check SMA-7 in the morning because the patient's BUN is slightly elevated as per the moment. The patient is getting Plavix 75 mg daily. was given yesterday. The patient is also getting Lovenox 40 mg subcutaneous daily, glipizide 5 mg p.o. daily, furosemide 40 p.o. daily, amlodipine 10 daily and azithromycin 250 mg IV daily. We will check labs in the morning. In the meantime, we will put the patient n.p.o. for possible catheterization tomorrow. We will follow with you. Anne García MD [facility] # [id number]
[2017-05-11] MEDS: Latanoprost 2.5 ml Opht Soln OD SCH (22:11)
[2017-05-12] MEDS: Levalbuterol 0.63 MG/3 ML Inhal Soln UD IH SCH ×4 (01:15→20:29)
[2017-05-12 06:36] LABS: GRAN # 9.24 (1.4-6.5); GRAN % 91.8 % (50.0-68.0); HEMATOCRIT 40.5 % (36.0-48.0); LYMPH # 0.6 (1.2-3.4); LYMPH % 6.1 % (22.0-35.0); MEAN CELL VOLUME 88.4 fl (80.0-105.0); MEAN CORPUSCULAR HGB CONC 32.8 g/dl (31.0-37.0); MEAN PLATELET VOLUME 12.3 fl (7.0-11.0); MONO # 0.2 (0.1-0.6); MONO % 2.1 % (1.0-6.0); PLATELET COUNT 220 10^3/uL (120.0-450.0); RED CELL DISTRIBUTION WIDTH 13.4 % (11.5-14.5); WHITE BLOOD COUNT 10.1 10^3/ul (4.5-11.0)
[2017-05-12] MEDS ORDERED: Sodium Chloride 0.9% 1,000 ML IV SCH ×2 (07:00→16:00)
[2017-05-12 07:07] LABS: CALCIUM 9.3 mg/dL (8.4-10.5); POTASSIUM 4.4 mmol/L (3.6-5.0)
--- NOTE | 2017-05-12 07:26 | PN ---
DATE: 05/12/2017 SUBJECTIVE: The patient appears comfortable this morning. She is not short of breath at rest. PHYSICAL EXAMINATION: VITAL SIGNS: Temperature is 97.6, pulse is 69, respirations are 18, and blood pressure is 135/90. Oxygen saturation on nasal cannula is 98%. HEENT: Normocephalic and atraumatic. NECK: No JVD. CARDIOVASCULAR: Systolic ejection murmur at the lower left sternal border. No S3 or gallop. LUNGS: Improved breath sounds at the bases. Much less/minimal rhonchi. No wheezing. EXTREMITIES: Mild edema. No cyanosis and no clubbing. Calves are nontender to palpation. GASTROINTESTINAL: Abdomen is soft, nontender and nondistended. Bowel sounds are positive. SKIN: No acute rash. NEUROLOGIC: Exam limited at the present time. IMPRESSION 1. Acute bronchitis. 2. Asthma. 3. Chronic obstructive pulmonary disease. 4. Obstructive sleep apnea - noncompliant with continuous positive airway pressure. 5. Intermediate troponin. 6. Nonsustained ventricular tachycardia. PLAN: The patient appears quite comfortable this morning. She is not short of breath at rest. She is much less dyspneic on exertion. She does state to feeling much better overall. On physical exam, her bronchospasm continues to resolve. In addition, the oxygen saturation on nasal cannula is now 98%. I will continue the current nebulizer treatments, and decrease the intravenous steroids this morning. I did discuss the patient's history of obstructive sleep apnea with her again at length this morning. As it turns out, the last time the patient used her CPAP machine was over 5 years ago. The patient was strongly advised (this morning) to follow up with Dr. Paiz and become compliant with her CPAP usage. I would continue with the cardiology evaluation. Inputs are noted. The patient is for cardiac catheterization later this morning. Clinical status of the patient is significantly improved. I will discuss the above with Dr. York. Gonsalo Lawrence MD [facility]
[2017-05-12 08:39] LABS: INR 0.97 (0.93-1.08); PARTIAL THROMBOPLASTIN TIME 28.6 Seconds (25.1-36.5)
[2017-05-12 08:58] VITALS: O2SAT 96
[2017-05-12] MEDS: Budesonide 0.5 mg/2 ml Inhal Susp UD IH SCH ×2 (09:00→20:29)
[2017-05-12] MEDS: Tiotropium 18 mcg Cap For Inhalation IH SCH (09:30)
[2017-05-12] MEDS: MethylPREDNISolone 40 mg Vial IVP SCH ×2 (09:32→22:30)
[2017-05-12] MEDS: Brimonidine 0.15% 50 DROP/5 ML BOTTLE OD SCH ×2 (09:32→17:54)
[2017-05-12] MEDS: Acetylcysteine 20% Inhal Soln (4ml) PO SCH ×2 (09:32→17:53)
[2017-05-12] MEDS: Psyllium Packet PO SCH (09:57)
[2017-05-12] MEDS: Azithromycin 250 MG in Sodium Chloride 0.9% 250 ML IVPB SCH (09:59)
[2017-05-12] MEDS: Multivitamin Therapeutic Tab PO SCH (09:59)
[2017-05-12] MEDS: IPRATROPIUM IH SCH (10:00)
[2017-05-12] MEDS: ALBUTEROL IH SCH (10:00)
[2017-05-12] MEDS ORDERED: A C T ELECTRONICS XX ONE (10:32)
--- NOTE | 2017-05-12 11:35 | PN ---
DATE: 05/11/2017 DAILY PROGRESS NOTE SUBJECTIVE: The patient is a 77-year-old female who is admitted with COPD exacerbation and elevated B-natriuretic protein consistent with congestive heart failure. The patient is treated with diuretics, nebulizer treatments, and intravenous steroids. She is followed by Dr. García and Dr. Clark, the investigations director, as well as Dr. Lawrence and Dr. Paiz, the plastic extrusion operator. During the course of her hospitalization, the patient improved markedly. When seen today, her son and future [id number] is at bedside. She is feeling well. She has no complaints. She claims to have ambulated around the floor earlier in the day without shortness of breath. PHYSICAL EXAMINATION: VITAL SIGNS: Stable. LUNGS: Clear. HEART: Regular. ABDOMEN: Soft and nontender. EXTREMITIES: Free of cyanosis, clubbing, or edema. LABORATORY DATA: This morning's laboratory showed the blood urea nitrogen to 46 with a creatinine of 1.2. ASSESSMENT AND PLAN: The patient is looking forward to being discharged to home, as she is scheduled for coronary catheterization in the morning with Dr. Clark and if all goes well she hopes to be discharged soon, as her son Jorge L, who is at bedtime is planning on getting on Tuesday and the patient would like to attend the ceremony. Taj York MD
[2017-05-12 11:59] LABS: NEUTROPHIL 91 % (50.0-70.0); PLATELET ESTIMATE NORMAL (NORMAL)
[2017-05-12 12:00] LABS: ANISOCYTOSIS SLIGHT
[2017-05-12] MEDS ORDERED: Lidocaine 2% Inj (20ml) ONE (14:35)
[2017-05-12] MEDS ORDERED: Iodixanol 320 mg/ml 150 ml Bottle IV ONE (14:36)
[2017-05-12] MEDS ORDERED: Nitroglycerin 50mg in D5W 50 MG/250 ML BOTTLE IV ONE (14:36)
[2017-05-12] MEDS ORDERED: Midazolam 2 MG/2 ML VIAL ONE (14:56)
[2017-05-12] MEDS ORDERED: Bacitracin 500 Units/gm Oint Foilpak UD TOP ONE (15:46)
--- NOTE | 2017-05-12 16:11 | CARD ---
APPROVED REPORT Procedure(s) performed: Left Heart Catheterization HISTORY The patient is a 77 year-old female with a history of : previous CHF, diabetes mellitus with oral treatment , chronic lung disease, hypertension , Admotted with Acute CHf and Copd Exacerbation.. INDICATION The indication(s) include : positive stress test, dyspnea. CASE TECHNIQUE The patient was brought electively to the Cardiac Catheterization Laboratory in a fasting state and was prepped and draped in a sterile manner. The left wrist was infiltrated with 2% Lidocaine subcutaneous anesthesia. A sheath was inserted into the left femoral vein without difficulty. Coronary angiography was performed using coronary diagnostic catheters. The left coronary system was accessed and visualized with a Diagnostic ,5fr 3.5 JL catheter. The right coronary system was accessed and visualized with a Diagnostic ,5fr 3.5JR catheter. The left ventricle was accessed and visualized with a PIGTAIL CATHETER catheter. Left ventricular/Aortic Valve gradient assessed on pullback. Left ventriculogram was performed in WARNER projection. Closure device was deployed with a Fr TR band without any complications. The patient tolerated the procedure well and there were no complications associated with the procedure. Vessel Analysis The patient's coronary anatomy is right dominant. The left main coronary artery is a medium size vessel with diffuse calcification noted throughout this vessel and without significant stenosis. The left main trifurcates to the left anterior descending, circumflex, and ramus. The left anterior descending artery is a large size vessel with diffuse calcification noted throughout this vessel and without significant stenosis. The first diagonal branch is a small size vessel with diffuse calcification noted throughout this vessel and without significant stenosis. The circumflex artery is a large size vessel with diffuse calcification noted throughout this vessel and without significant stenosis. The first obtuse marginal branch is a small size vessel with diffuse calcification noted throughout this vessel and without significant stenosis. The ramus intermedius artery is a large size vessel with diffuse calcification noted throughout this vessel and without significant stenosis. The right coronary artery is a large size vessel with diffuse calcification noted throughout this vessel and without significant stenosis. The right posterior descending artery is a medium size vessel with diffuse calcification noted throughout this vessel and without significant stenosis. The right posterolateral branch is a medium size vessel with diffuse calcification noted throughout this vessel and without significant stenosis. Left Ventricle The left ventricle is enlarged in size with moderate to severely decreased contractility. Non-Ischemic cardiomyopathy. There was no cardiomyopathy. The left ventricular ejection fraction is estimated to be 25-30%. The left ventricular end diastolic pressure is 30-35 mmHg. There was no gradient across the aortic valve upon pullback. Conclusion Non Obstructive CAD ( Mild) Non Ischemic CMP, EF-25-30%, EDp-30-35 mmof Hg. Recommendations Aggressive Medical TherapyCardiac Risk Reduction Program Weight Loss Reduction Program Continue Diuretice, Coreg, Add YSABEL Inhibitors as BP and Renal Fx. is tolerated Dc Norvasc. Reassess LV Fx. in 3-6 months if remains <35% consider AICD. Cc; Dr. Chela E.MD
[2017-05-12] MEDS: Latanoprost 2.5 ml Opht Soln OD SCH (22:32)
--- NOTE | 2017-05-12 23:53 | PN ---
DATE: 05/12/2017 SUBJECTIVE: I came to see Jazmyn Coates this afternoon in room 370, bed 2. She is down on cardiac laboratory cureman for cardiac catheterization with Dr. Clark. I spoke to Dr. Clark later that, got the results of her catheterization. Hopefully, her postoperative course will be uneventful and she may be ready for discharge to home as early as tomorrow. Rickey York MD
--- NOTE | 2017-05-13 00:13 | PN ---
DATE: 05/12/2017 REASON FOR CONSULTATION/FOLLOWUP: Cardiac evaluation; shortness of breath; status post cardiac catheterization; nonobstructive coronary artery disease; cardiomyopathy, nonischemic; COPD. SUBJECTIVE: The patient is a 77-year-old female. The patient denies any chest pain, shortness of breath or any palpitation. PHYSICAL EXAMINATION: VITAL SIGNS: Temperature afebrile, heart rate 69, blood pressure 135/98. HEENT: PERRLA. Extraocular muscles intact. NECK: Supple. No carotid bruits. No thyromegaly. CHEST: Clear to auscultation. HEART: S1 and S2 regular. ABDOMEN: Soft. EXTREMITIES: Clubbing and cyanosis negative. LABORATORY DATA: Blood workup as follows. WBC 10.2, hemoglobin 13.3, hematocrit 40.5, and platelet count 220. Chemistry shows sodium 139, potassium 4.4, chloride 102, carbon dioxide 29, anion gap of 12, BUN 46, and creatinine 1.2. IMPRESSION: Status post cardiac catheterization, nonobstructive coronary artery disease, nonischemic cardiomyopathy, ejection fraction 25-30%. Last echocardiogram on 04/01/2016; ejection fraction 35-40%, trace aortic regurgitation, mitral regurgitation, and tricuspid regurgitation. The patient had a stress test with ejection fraction of 25%, heterogenous activity secondary to motion artifact. Chronic obstructive pulmonary disease exacerbation, obesity, diabetes, hypertension, and hyperlipidemia. RECOMMENDATIONS: Discontinue Norvasc, put on YSABEL inhibitor from tomorrow. Continue Coreg 6.25 mg twice a day. Continue lisinopril 5 mg from tomorrow. Resume back metformin. Discontinue Plavix. Continue baby aspirin. Nonischemic cardiomyopathy, reassess LV function in 3 to 6 months. If it remains low, consider AICD. Nonischemic cardiomyopathy most likely secondary to some viral infection went unnoticed. The patient has viral myocarditis and since then stays like CMP/cardiomyopathy, nonischemic. We will follow with you. Thank you providing us the opportunity in taking are of the patient. Anne Clark MD MTDYashira
[2017-05-13] MEDS: Levalbuterol 0.63 MG/3 ML Inhal Soln UD IH SCH ×3 (01:45→13:42)
[2017-05-13 02:58] VITALS: RESP 20; TEMP 98
[2017-05-13 06:14] LABS: GRAN # 9.32 (1.4-6.5); GRAN % 91.6 % (50.0-68.0); HEMATOCRIT 42.8 % (36.0-48.0); LYMPH # 0.7 (1.2-3.4); LYMPH % 7.1 % (22.0-35.0); MEAN CELL VOLUME 90.7 fl (80.0-105.0); MEAN CORPUSCULAR HEMOGLOBIN 28.6 pg (25.0-35.0); MEAN CORPUSCULAR HGB CONC 31.5 g/dl (31.0-37.0); MEAN PLATELET VOLUME 12.6 fl (7.0-11.0); MONO # 0.1 (0.1-0.6); MONO % 1.3 % (1.0-6.0); RED CELL DISTRIBUTION WIDTH 13.4 % (11.5-14.5); WHITE BLOOD COUNT 10.2 10^3/ul (4.5-11.0)
[2017-05-13 06:54] LABS: ALB/GLOB RATIO 1.3 (1.1-1.8); BILIRUBIN,TOTAL 0.5 mg/dL (0.2-1.3); CALCIUM 9.1 mg/dL (8.4-10.5); MAGNESIUM 1.9 mg/dL (1.7-2.2); PHOSPHOROUS 3.3 mg/dL (2.5-4.5); POTASSIUM 4.8 mmol/L (3.6-5.0); TOTAL PROTEIN 6.1 g/dL (5.8-8.3)
[2017-05-13] MEDS: Budesonide 0.5 mg/2 ml Inhal Susp UD IH SCH (08:01)
--- NOTE | 2017-05-13 08:57 | PN ---
DATE: SUBJECTIVE: The patient appears very comfortable this morning. She is not short of breath at rest. OBJECTIVE: VITAL SIGNS: Temperature is 98.0, pulse is 55, respirations are 18, and blood pressure is 141/72. Oxygen saturation on nasal cannula is 97%. HEENT: Normocephalic, atraumatic. No JVD. CARDIOVASCULAR: Systolic ejection murmur at the lower left sternal border. No S3 or gallop. LUNGS: Clear bilaterally this morning. EXTREMITIES: Mild edema. No cyanosis, no clubbing. Calves are nontender to palpation. GASTROINTESTINAL: Abdomen is soft, nontender, and nondistended. Bowel sounds are positive. SKIN: No acute rash. NEUROLOGIC: Limited at the present time. IMPRESSION: 1. Acute bronchitis. 2. Asthma. 3. Chronic obstructive pulmonary disease. 4. Obstructive sleep apnea. 5. Intermediate troponin. 6. Nonsustained ventricular tachycardia. PLAN: The patient appears very comfortable this morning. She is not short of breath at rest. She states she is feeling much much better overall. On physical exam, her lungs are now clear. There is no significant alveolar-arterial gradient. I will continue the current nebulizer treatments and change to oral steroids this morning. Input by Cardiology is noted. The patient is status post cardiac catheterization. Results are noted. Clinical status of the patient is significantly improved overall. The patient is for discharge in the near future. I did remind the patient again (this morning) to follow up with Dr. Paiz - in reference to both her chronic obstructive pulmonary disease, as well as her obstructive sleep apnea. She agrees. I will discuss the above with the attending physician. Gonsalo Lawrence MD MTDYashira
[2017-05-13] MEDS ORDERED: Enoxaparin 30 mg Syringe SC SCH (10:00)
[2017-05-13] MEDS: Azithromycin 250 MG in Sodium Chloride 0.9% 250 ML IVPB SCH (10:42)
[2017-05-13] MEDS: Acetylcysteine 20% Inhal Soln (4ml) PO SCH (10:47)
[2017-05-13] MEDS: Brimonidine 0.15% 50 DROP/5 ML BOTTLE OD SCH (10:48)
[2017-05-13] MEDS: IPRATROPIUM IH SCH (10:50)
[2017-05-13] MEDS: Psyllium Packet PO SCH (10:50)
[2017-05-13] MEDS: ALBUTEROL IH SCH (10:50)
[2017-05-13] MEDS: Tiotropium 18 mcg Cap For Inhalation IH SCH (10:51)
[2017-05-13] MEDS: Multivitamin Therapeutic Tab PO SCH (10:52)
[2017-05-13 12:07] VITALS: BP 154/75; PULSE 56
--- NOTE | 2017-05-13 13:22 | PN ---
DATE: 05/13/2017 REASON FOR CONSULTATION: Cardiac evaluation; shortness of breath, status post cardiac catheterization; nonobstructive coronary artery disease; cardiomyopathy, nonischemic; COPD. SUBJECTIVE: The patient denies any chest pain, shortness of breath or any palpitation. OBJECTIVE: GENERAL: Not in apparent distress. Sitting at the bedside. VITAL SIGNS: As follows, temperature afebrile, heart rate 55, blood pressure 141/72. HEENT: PERRLA. Extraocular muscles intact. NECK: Supple. No carotid bruits or thyromegaly. CHEST: Clear to auscultation. HEART: S1 and S2 regular. ABDOMEN: Soft. EXTREMITIES: Clubbing and cyanosis negative. LABORATORY DATA: Blood workup as follows. WBC 10.3, hemoglobin 13.5, hematocrit 42.8, and platelet count 197. Chemistry shows sodium 130, potassium 4.3, chloride 103, carbon dioxide 28, anion gap of 12, BUN 42, creatinine 1.1, GFR 58, her random sugar 250. AST 28, ALT 56, alkaline phosphatase 65. IMPRESSION: Nonischemic cardiomyopathy, status post cardiac catheterization, nonobstructive coronary artery disease, obesity, chronic obstructive pulmonary disease, ejection fraction of 25%, trace aortic regurgitation, trace mitral regurgitation, trace tricuspid regurgitation, prerenal azotemia secondary to steroid as well as given diuretics, chronic obstructive pulmonary disease exacerbation. RECOMMENDATIONS: Continue carvedilol 6.25 mg. Continue baby aspirin. Continue metformin. Continue glipizide. Continue low-dose lisinopril as blood pressure is tolerated. Discontinue Norvasc. Possible discharge home today. Followup with Dr. Clark in one week. Thank you Dr. York for providing us the opportunity in taking care of the patient, Jazmyn Coates. Anne Clark MD cc: Dr. Taj York.
--- NOTE | 2017-05-16 03:02 | DS ---
HISTORY AND HOSPITAL COURSE: This is a 77-year-old woman who is known to my practice for many years and was recently admitted with acute exacerbation of her asthma, bronchospasm, wheezing as well as some mild volume overload CHF. This is one of several similar admissions for this patient. She is followed by Pulmonary as well as by Cardiology and Internal Medicine at my office, but has tendency to not want to bother her physicians, until symptoms worsen and then comes to the Emergency Room, resulting in, unfortunate the need for admission. The patient presented to the ER with the symptoms as listed above. She was seen by Pulmonary and Cardiology. Troponin was indeterminate on admission at 0.04. She responded nicely to diuretics, steroids, aerosol treatments, etc. She was followed closely by Dr. Paiz and Dr. Lawrence. She was also followed by Dr. García and Dr. Clark, after she had improved clinically, she was taken to the phlebotomist medical lab assistant, where nonobstructive coronary artery disease was noted. Medical treatment was the best option. She responded nicely and was ready for discharge to home. She had prescriptions at home including prednisone, so tapering scale was given to her as advised by the senior network engineer. She will follow up in the office in less than one week and she was advised that in future she will need to be followed by physicians on a regular basis to help avoid hospitalizations. DISCHARGE DIAGNOSES: 1. Acute exacerbation of asthma and bronchospasm. 2. Volume overload, congestive heart failure. 3. Coronary artery disease. 4. Sleep apnea. 5. Type 2 diabetes. 6. Glaucoma. DISCHARGE INSTRUCTIONS: The patient was advised to followup with sleep apnea and wear her mask, but currently has not been doing this for several months. She was counseled by both me and the senior network engineer as well. Rickey York MD
== END 2017-05-13 15:09 | disposition home or self-care (01) | DRG 190 ==
LOC: ED 10:28 → ERH 15:16 → 2RSO 17:45
PROVIDERS: ADMIT Internal Medicine; ATTEND Internal Medicine
PROC: 3E0F7GC Introduction of Other Therapeutic Substance into Respiratory Tract, Via Natural or Artificial Opening (ICD-10-PCS; 2017-05-09)
PROC: 4A023N7 Measurement of Cardiac Sampling and Pressure, Left Heart, Percutaneous Approach (ICD-10-PCS; principal; 2017-05-12)
PROC: B211YZZ Fluoroscopy of Multiple Coronary Arteries using Other Contrast (ICD-10-PCS; 2017-05-12)
PROC: B215YZZ Fluoroscopy of Left Heart using Other Contrast (ICD-10-PCS; 2017-05-12)
DX: J44.1 Chronic obstructive pulmonary disease with (acute) exacerbation (principal); I50.23 Acute on chronic systolic (congestive) heart failure; I47.2 Ventricular tachycardia; I42.9 Cardiomyopathy, unspecified; J44.0 Chronic obstructive pulmonary disease with (acute) lower respiratory infection; Z99.81 Dependence on supplemental oxygen; E11.9 Type 2 diabetes mellitus without complications; I11.0 Hypertensive heart disease with heart failure; I25.10 Atherosclerotic heart disease of native coronary artery without angina pectoris; J20.9 Acute bronchitis, unspecified; G47.33 Obstructive sleep apnea (adult) (pediatric); E78.5 Hyperlipidemia, unspecified; H40.9 Unspecified glaucoma; H54.7 Unspecified visual loss; E66.9 Obesity, unspecified; Z68.31 Body mass index [BMI] 31.0-31.9, adult; Z91.19 Patient's noncompliance with other medical treatment and regimen; Z96.652 Presence of left artificial knee joint; Z86.73 Personal history of transient ischemic attack (TIA), and cerebral infarction without residual deficits; Z79.82 Long term (current) use of aspirin; Z88.0 Allergy status to penicillin; Z82.5 Family history of asthma and other chronic lower respiratory diseases; Z80.3 Family history of malignant neoplasm of breast

== ENCOUNTER 2017-11-14 23:03 | Inpatient (IN) | payer MEDICARE, BC ==
[2017-11-14 23:10] VITALS: BMI 29.9
[2017-11-14] MEDS ORDERED: Albuterol-Ipratrop 3 mg / 0.5 (3 ml) UD IH STA (23:27)
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
[2017-11-15 02:01] LABS: ALB/GLOB RATIO 1.3 (1.1-1.8); ALBUMIN 4.1 g/dL (3.0-4.8); CALCIUM 9.6 mg/dL (8.4-10.5)
[2017-11-15 02:03] LABS: BASO # 0.03 K/mm3 (0.0-2.0); BASO % 0.2 % (0.0-3.0); EOS # 0.9 (0.0-0.7); EOS % 5.3 % (1.5-5.0); GRAN # 13.29 (1.4-6.5); GRAN % 82.9 % (50.0-68.0); LYMPH # 1.1 (1.2-3.4); LYMPH % 7.1 % (22.0-35.0); MEAN CELL VOLUME 88.8 fl (80.0-105.0); MEAN CORPUSCULAR HEMOGLOBIN 28.4 pg (25.0-35.0); MEAN PLATELET VOLUME 12.6 fl (7.0-11.0); MONO # 0.7 (0.1-0.6); MONO % 4.5 % (1.0-6.0); RBC 4.93 10^6/uL (3.5-6.1); RED CELL DISTRIBUTION WIDTH 14.1 % (11.5-14.5)
[2017-11-15] MEDS ORDERED: Albuterol-Ipratrop 3 mg / 0.5 (3 ml) UD IH PRN ×2 (03:54→06:38)
[2017-11-15] MEDS ORDERED: guaiFENesin-Codeine 100-10mg/5ml Syrup (5 ml) UD PO PRN (03:56)
[2017-11-15] MEDS: Budesonide 0.5 mg/2 ml Inhal Susp UD IH SCH ×2 (08:04→20:40)
[2017-11-15] MEDS: Albuterol-Ipratrop 3 mg / 0.5 (3 ml) UD IH SCH ×4 (08:04→20:40)
--- NOTE | 2017-11-15 08:44 | RAD ---
HISTORY: COPD, short of breath COMPARISON: 05/08/2017 and 11/10/2011 FINDINGS: LUNGS: No interval consolidation. Interstitial lung marking borderline increased as before. Hyperaeration -as before. Low-density subcentimeter opacities lateral right upper lung zone appearance similar to 2012. No interval pulmonary nodules appreciated. For lung cancer screening consider CT PLEURA: No significant pleural effusion identified, no pneumothorax apparent. CARDIOVASCULAR: Probable top-normal OSSEOUS STRUCTURES: Bilateral shoulder arthrosis VISUALIZED UPPER ABDOMEN: Normal. OTHER FINDINGS: None. IMPRESSION: No interval pathology noted
[2017-11-15] MEDS ORDERED: Tolterodine 4 mg ER Cap PO SCH (10:00)
[2017-11-15] MEDS ORDERED: Magnesium Oxide 400 mg Tab UD PO SCH (10:00)
[2017-11-15] MEDS ORDERED: levoFLOXacin 500 MG TAB PO ONE (10:00)
--- NOTE | 2017-11-15 10:01 | CON ---
DATE: 11/15/2017 PULMONARY CONSULTATION REFERRING PHYSICIAN: Dr. York. REASON FOR CONSULTATION: Chronic obstructive pulmonary disease. HISTORY OF PRESENT ILLNESS: The patient is a 77-year-old female, with past medical history significant for chronic obstructive pulmonary disease, asthma, obstructive sleep apnea (noncompliant with CPAP at home "for years"), diabetes mellitus, who presents to [facility] with a 3-day history of worsening shortness of breath at rest, dyspnea on exertion, cough, and sputum production. There is no history of chest pain, coughing up of blood, or chest pain - made worse with deep respirations. There is no history of temperatures, chills or infectious exposure. There is no history of night sweats, weight loss or appetite change prior to the above events. No history of leg or calf pains. No history of syncope or diaphoresis. No history of recent travel or trauma. REVIEW OF SYSTEMS: No history of nausea, vomiting, diarrhea. No acute urinary symptoms. No new neurologic or musculoskeletal complaints. Rest of the review of system-negative. ALLERGIES: PENICILLIN AND LYRICA. SOCIAL HISTORY: Positive for tobacco, negative for alcohol. FAMILY HISTORY: No inheritable diseases. HOME MEDICATIONS: Include QVAR, DuoNebs, Lasix, glipizide, Glucophage, Detrol, vitamins, aspirin. PHYSICAL EXAMINATION: GENERAL: The patient appears comfortable at rest. She is not short of breath. She is not using accessory muscles for breathing. VITAL SIGNS: Temperature is 98, pulse 86, respirations 18, blood pressure 138/68. Oxygen saturation on nasal cannula is 97%. HEENT: Normocephalic, atraumatic. No JVD. CARDIOVASCULAR: Systolic ejection murmur at the lower left sternal border. No S3 gallop. LUNGS: Decreased breath sounds at the bases. Significant rhonchi and wheezing are appreciated bilaterally. EXTREMITIES: No clubbing, cyanosis or edema. Calves are nontender to palpation. GI: Abdomen is soft, nontender, nondistended. Bowel sounds are positive. SKIN: No acute rash. NEUROLOGIC: Exam limited at the present time. PERTINENT LABORATORY DATA: Chest x-ray was done late last night and reviewed. There are no significant changes - compared to the previous film. Official results are pending. CBC: White count 16K, hemoglobin 14.0, hematocrit 43.8, platelets of 195,000. Complete metabolic profile: Chloride 97, carbon dioxide 35, BUN 25, creatinine 1.3, glucose 184, magnesium 1.6. Rest of the metabolic profile is within normal limits. IMPRESSION: 1. Acute bronchitis. 2. Chronic obstructive pulmonary disease. 3. Obstructive sleep apnea. 4. Diabetes mellitus. 5. Renal insufficiency. PLAN The patient presents to [facility] with a three-day history of worsening pulmonary symptoms. Again, there is no history of fevers or infectious exposure. I did review the chest x-ray as above. I do not appreciate any significant change compared to the previous film. Official results are pending. On physical exam, there is moderately severe bronchospasm noted. However, there is no significant alveolar-arterial gradient. Oxygen saturation on nasal cannula is 97%. I will start the patient on frequent DuoNeb treatments, inhaled steroids, and intravenous steroids this morning. Because of her age and above diagnoses, I will also start oral antibiotic therapy. Again, there is no history of temperatures. The patient does state to feeling a little better this morning, and is clinically improved. She did get intravenous steroids in the emergency room. Additional pulmonary intervention will be based on the clinical status of the patient. I will discuss the above with the attending physician. Thank you very much for this pulmonary consultation. Gonsalo Lawrence MD [facility]
[2017-11-15] MEDS: Magnesium Chloride 64 mg ER Tab PO SCH (10:03)
--- NOTE | 2017-11-15 10:33 | CARD ---
APPROVED REPORT EKG Measurement Heart [id number] PA [id number] <Conclusion> Normal sinus rhythm Possible Left atrial enlargement Left axis deviation Left ventricular hypertrophy with QRS widening Cannot rule out Septal infarct, age undetermined Prolonged QT Abnormal ECG
[2017-11-15] MEDS: Brimonidine 0.15% 50 DROP/5 ML BOTTLE OU SCH ×2 (10:55→18:02)
[2017-11-15] MEDS: Tolterodine 4 mg ER Cap PO SCH (10:55)
[2017-11-15] MEDS: MethylPREDNISolone 40 mg Vial IVP SCH ×2 (12:53→18:02)
[2017-11-15] MEDS: POLYETHYLENE GLYCOL 3350 17 GM/Dose PACKET PO SCH (16:08)
[2017-11-16] MEDS: MethylPREDNISolone 40 mg Vial IVP SCH ×5 (00:30→22:07)
[2017-11-16] MEDS: Albuterol-Ipratrop 3 mg / 0.5 (3 ml) UD IH SCH ×6 (00:45→21:45)
--- NOTE | 2017-11-16 01:29 | HP ---
HISTORY OF PRESENT ILLNESS: The patient is a 77-year-old female, who was admitted with increasing shortness of breath and feeling of tremors. She noted the onset of breathing difficulties earlier in the afternoon she gave herself 2 or 3 nebulizer treatments at home to no avail. She had prolonged coughing fits at home. As her symptoms persisted, the patient presented to the emergency room, was evaluated and admitted. PAST MEDICAL HISTORY: The patient is known to have a past medical history positive for COPD, noninsulin-dependent diabetes mellitus and sleep apnea. She is status post carpal tunnel surgery, status post left knee replacement, status post surgical repair of a fractured shoulder, which she suffered in a fall at her daughter's house in [place]. SOCIAL HISTORY: She never smoked, is a nonalcoholic drinker. She is a , but she has sons in town. ALLLERGIES: SHE IS KNOWN TO BE ALLERGIC TO PENICILLIN AND AMPICILLIN. SHE IS ALSO ALLERGIC TO LYRICA. MEDICATIONS: At the time of admission included DuoNeb nebulizer treatments four times a day as needed, aspirin 81 mg, QVAR inhalation every 6 hours as needed, Alphagan eye drops to both eyes twice a day, Lasix 40 mg daily, glipizide 5 mg twice a day, Detrol LA 4 mg once a day and metformin 500 mg twice a day. PHYSICAL EXAMINATION: GENERAL: When seen, the patient is sitting at the bedside. She is awake, alert and oriented. She is in good spirits. She is feeling much better. She has been seen by Dr. Lawrence, the digital photographic printer earlier today. HEENT: Examination of the head, eyes, ears, nose and throat is unremarkable. NECK: Supple with no lymphadenopathy. No goiter. LUNGS: Clear to auscultation and percussion, much improved over Dr. Lawrence's note from earlier this morning. HEART: Regular. ABDOMEN: Soft and nontender. EXTREMITIES: Show trace to +1 pretibial edema. NEUROLOGICALLY: She is awake, alert and oriented with no focal neurological signs. VITAL SIGNS: Her blood pressure is 132/77, heart rate is 87, she is afebrile at 97.9 degrees Fahrenheit. LABORATORY STUDIES: Reveal the white blood cell count to be 16, 82.9% of these are granulocytes; the hemoglobin is 14; hematocrit 43.8; platelet count is 195; blood urea nitrogen is 25; creatinine 1.3. Sodium is 145, potassium 4. EKG showed regular sinus rhythm with left atrial enlargement, left axis deviation, left ventricular hypertrophy and prolonged QT interval. EKG shows no acute disease, but chronic pulmonary changes. Neither the chest x-ray or EKG are changed from previous studies. IMPRESSION: So the patient is admitted with chronic obstructive pulmonary disease exacerbation. She is started on Levaquin 250 mg intravenously. She is also started on Pulmicort Respules 1 inhalation every 12 hours and methylprednisolone 40 mg IV every [address] Lawrence's input is greatly appreciated. We will continue to follow the patient closely. This concludes the admitting history and physical for Jazmyn Coates. Taj York MD MTDD
[2017-11-16] MEDS: Budesonide 0.5 mg/2 ml Inhal Susp UD IH SCH ×2 (08:25→21:45)
--- NOTE | 2017-11-16 09:24 | PN ---
DATE: 11/16/2017 PULMONARY NOTE SUBJECTIVE: The patient appears comfortable this morning. She is not short of breath at rest. OBJECTIVE: VITAL SIGNS: Last temperature recorded is 99.2, pulse is 88, respiratory rate 18, blood pressure 131/75. Oxygen saturation on nasal cannula is 97%. HEENT: Normocephalic, atraumatic. No JVD. CARDIOVASCULAR: Systolic ejection murmur at the lower left sternal border. No S3 gallop. LUNGS: Improved breath sounds at the bases. Less rhonchi. Less wheezing. EXTREMITIES: No clubbing, cyanosis or edema. Calves are nontender to palpation. GI: Abdomen is soft, nontender and nondistended. Bowel sounds are positive. SKIN: No acute rash. NEUROLOGIC: Exam limited at the present time. IMPRESSION: 1. Acute bronchitis. 2. Chronic obstructive pulmonary disease. 3. Obstructive sleep apnea. 4. Diabetes mellitus. 5. Renal insufficiency. PLAN: The patient appears comfortable this morning. She is not short of breath at rest. She does state to feeling much better overall. On physical exam, there is definitely less bronchospasm noted. In addition, there is no significant alveolar-arterial gradient. I will continue with the current nebulizer treatments and decrease the intravenous steroids this morning. The patient remains on antibiotic therapy. There are no significant temperatures noted. Clinical status of the patient is certainly improved - compared to a few days ago. The patient is advised to be out of bed as much as she can. I will discuss the above with the attending physician. Gonsalo Lawrence MD MTDYashira
[2017-11-16] MEDS: Brimonidine 0.15% 50 DROP/5 ML BOTTLE OU SCH ×2 (10:22→17:45)
[2017-11-16] MEDS: Magnesium Chloride 64 mg ER Tab PO SCH (10:22)
[2017-11-16] MEDS: POLYETHYLENE GLYCOL 3350 17 GM/Dose PACKET PO SCH (10:24)
[2017-11-16] MEDS: Tolterodine 4 mg ER Cap PO SCH (10:24)
--- NOTE | 2017-11-16 11:41 | PN ---
DATE: 11/16/2017 DAILY PROGRESS NOTE SUBJECTIVE: The patient is a 77-year-old female, who was admitted to the [facility] yesterday with a diagnosis of COPD exacerbation and acute bronchitis. The patient has been treated with intravenous steroids, intravenous Levaquin and nebulizer treatments and has done very well. When seen this morning, she is sitting on the edge of the bed. She is awake, alert and oriented. She has no complaints. Her respirations are easy. On pulmonary auscultation, her lungs are clear. Heart is regular. Abdomen is soft. The patient does say she feels a little jittery from the nebulizer treatments. Dr. Lawrence, the channel lip wetter's note is appreciated. We will be decreasing the steroids in preparation for possible discharge to home in a day or two. Taj York MD
[2017-11-17] MEDS: Albuterol-Ipratrop 3 mg / 0.5 (3 ml) UD IH SCH ×7 (01:40→23:24)
[2017-11-17] MEDS: MethylPREDNISolone 40 mg Vial IVP SCH ×3 (06:14→21:34)
[2017-11-17 06:29] LABS: GRAN # 8.66 (1.4-6.5); GRAN % 89.4 % (50.0-68.0); LYMPH # 0.7 (1.2-3.4); LYMPH % 6.9 % (22.0-35.0); MEAN CORPUSCULAR HEMOGLOBIN 27.7 pg (25.0-35.0); MEAN CORPUSCULAR HGB CONC 32.6 g/dl (31.0-37.0); MEAN PLATELET VOLUME 12.1 fl (7.0-11.0); MONO # 0.4 (0.1-0.6); MONO % 3.7 % (1.0-6.0); RBC 4.69 10^6/uL (3.5-6.1); RED CELL DISTRIBUTION WIDTH 14.1 % (11.5-14.5); WHITE BLOOD COUNT 9.7 10^3/ul (4.5-11.0)
[2017-11-17 07:11] LABS: MEAN CELL VOLUME 85.1 fl (80.0-105.0)
[2017-11-17 07:19] LABS: ALB/GLOB RATIO 1.4 (1.1-1.8); ALBUMIN 3.8 g/dL (3.0-4.8); CALCIUM 8.8 mg/dL (8.4-10.5)
--- NOTE | 2017-11-17 07:28 | PN ---
DATE: 11/17/2017 PULMONARY NOTE SUBJECTIVE: The patient appears comfortable this morning. She is not short of breath at rest. OBJECTIVE: VITAL SIGNS: Temperature is 98.5, pulse is 95, respirations 18, blood pressure 112/71. Oxygen saturation on room air is 95%. HEENT: Normocephalic, atraumatic. No JVD. CARDIOVASCULAR: Systolic ejection murmur at the lower left sternal border. No S3 gallop. LUNGS: Continued decrease in the rhonchi and wheezing bilaterally. EXTREMITIES: No clubbing, cyanosis or edema. Calves are nontender to palpation. GI: Abdomen is soft, nontender and nondistended. Bowel sounds are positive. SKIN: No acute rash. NEUROLOGIC: Exam limited at the present time. IMPRESSION: 1. Acute bronchitis. 2. Chronic obstructive pulmonary disease. 3. Obstructive sleep apnea. 4. Diabetes mellitus. 5. Renal insufficiency. PLAN: The patient appears comfortable this morning. She is not short of breath at rest. She does state to feeling much, much better overall. On physical exam, her bronchospasm continues to slowly resolve. In addition, the alveolar arterial gradient also continues to resolve. Oxygen saturation on room air is now 95%. I will continue with the current nebulizer treatments and decrease the intravenous steroids this morning. The patient also remains on oral antibiotic therapy. There are no temperatures noted. Repeat AM labs--pending. Clinical status of the patient is significantly improved overall. The patient is advised to be out of bed as much as she can. I will discuss the above the attending physician. Gonsalo Lawrence MD MTDD
[2017-11-17] MEDS: Budesonide 0.5 mg/2 ml Inhal Susp UD IH SCH ×2 (08:36→19:36)
[2017-11-17] MEDS: Brimonidine 0.15% 50 DROP/5 ML BOTTLE OU SCH ×2 (09:17→17:29)
[2017-11-17] MEDS: Magnesium Chloride 64 mg ER Tab PO SCH (09:18)
[2017-11-17] MEDS: POLYETHYLENE GLYCOL 3350 17 GM/Dose PACKET PO SCH (09:19)
[2017-11-17] MEDS: Tolterodine 4 mg ER Cap PO SCH (09:19)
[2017-11-18] MEDS: Albuterol-Ipratrop 3 mg / 0.5 (3 ml) UD IH SCH ×5 (04:14→20:18)
[2017-11-18] MEDS: Budesonide 0.5 mg/2 ml Inhal Susp UD IH SCH ×2 (07:51→20:18)
[2017-11-18 08:20] VITALS: O2SAT 98
--- NOTE | 2017-11-18 08:20 | PN ---
DATE: 11/18/2017 PULMONARY NOTE SUBJECTIVE: The patient appears very comfortable this morning. She is not short of breath at rest. OBJECTIVE: VITAL SIGNS (last noted in the computer): Last temperature recorded was 99.2, pulse is 84, respirations 18, blood pressure 138/77. Oxygen saturation on nasal cannula is 97%. HEENT: Normocephalic, atraumatic. No JVD. CARDIOVASCULAR: Systolic ejection murmur at the lower left sternal border. No S3 gallop. LUNGS: Much less rhonchi. Few wheezes are appreciated bilaterally. EXTREMITIES: No clubbing, cyanosis or edema. Calves are nontender to palpation. GI: Abdomen is soft, nontender and nondistended. Bowel sounds are positive. SKIN: No acute rash. NEUROLOGIC: Exam limited at the present time. IMPRESSION: 1. Acute bronchitis. 2. Chronic obstructive pulmonary disease. 3. Obstructive sleep apnea. 4. Diabetes mellitus. 5. Renal insufficiency. PLAN: The patient appears very comfortable this morning. She is not short of breath at rest. She does state to feeling much, much better overall. On physical exam, her bronchospasm continues to resolve. In addition, there is no significant alveolar-arterial gradient. I will continue with the current nebulizer treatments and decrease the intravenous steroids this morning. I will also continue with the oral antibiotic therapy. There are no temperatures noted. The leukocytosis has resolved. Clinical status of the patient is significantly improved overall. The patient is reminded to be out of bed as much as possible. I will discuss the above with the attending physician. Gonsalo Lawrence MD MTDD
[2017-11-18] MEDS: Magnesium Chloride 64 mg ER Tab PO SCH (09:45)
[2017-11-18] MEDS: POLYETHYLENE GLYCOL 3350 17 GM/Dose PACKET PO SCH (09:45)
[2017-11-18] MEDS: Tolterodine 4 mg ER Cap PO SCH (09:45)
[2017-11-18] MEDS: Brimonidine 0.15% 50 DROP/5 ML BOTTLE OU SCH ×2 (09:46→17:42)
[2017-11-18] MEDS: MethylPREDNISolone 40 mg Vial IVP SCH ×2 (09:46→21:43)
[2017-11-19] MEDS: Albuterol-Ipratrop 3 mg / 0.5 (3 ml) UD IH SCH ×4 (00:15→11:14)
[2017-11-19] MEDS: Budesonide 0.5 mg/2 ml Inhal Susp UD IH SCH (07:34)
[2017-11-19 08:41] VITALS: BP 132/61; RESP 18; TEMP 97.9
[2017-11-19] MEDS: Brimonidine 0.15% 50 DROP/5 ML BOTTLE OU SCH (09:05)
[2017-11-19] MEDS: MethylPREDNISolone 40 mg Vial IVP SCH (09:05)
[2017-11-19] MEDS: POLYETHYLENE GLYCOL 3350 17 GM/Dose PACKET PO SCH (09:05)
[2017-11-19] MEDS: Magnesium Chloride 64 mg ER Tab PO SCH (09:06)
[2017-11-19] MEDS: Tolterodine 4 mg ER Cap PO SCH (09:07)
--- NOTE | 2017-11-19 12:15 | PN ---
DATE: 11/17/2017 DAILY PROGRESS NOTE SUBJECTIVE: The patient is a 77-year-old female with a history of COPD, chronic bronchitis, who was admitted [address] [facility] with COPD exacerbation and bronchitis. She had been followed by Dr. Lawrence, the pot room supervisor. She is being treated with Levaquin intravenously and nebulizer treatments and is doing very well. When seen today, she is sitting up in bed. She does not appear short of breath. Her lungs are clear on pulmonary auscultation. Heart is regular. Abdomen is soft and nontender. Her vital signs are stable. White blood cell count is 9.7 this morning, hemoglobin and hematocrit are 13 and 39.9. Her serum chemistries are unremarkable with a blood urea nitrogen slightly elevated at 43 and a creatinine of 1.5. So at this point we are continuing her nebulizer treatments. We will be decreasing her Solu-Medrol to 40 mg every 12 hours and we are continuing to follow the patient closely. Taj York MD
[2017-11-19 12:20] VITALS: PULSE 80
--- NOTE | 2017-11-19 12:20 | PN ---
DATE: 11/18/2017 DAILY PROGRESS NOTE SUBJECTIVE: The patient is a 77-year-old female with a history of chronic bronchitis, emphysema, sleep apnea, diabetes mellitus, who was admitted to the [facility] (formerly [facility]) 3 days ago with a diagnosis of COPD exacerbation. She had been treated with nebulizer treatments and intravenous steroids. She is followed by Dr. Lawrence and she is improving nicely. When seen today, she is afebrile. Blood pressure is 136/67, heart rate is 86. Her lungs are clear to auscultation and percussion. Heart is regular. Abdomen is soft and nontender. She did complain of constipation, for which she received glycerin suppository earlier this morning. She will receive a Fleet Enema later on today. We are decreasing her Solu-Medrol, it is now down to 30 mg IV every 12. We are hoping to convert to oral steroids to continue tapering post discharge to home in the a.m. Taj York MD
--- NOTE | 2017-11-19 12:52 | PN ---
DATE: 11/19/2017 PULMONARY PROGRESS NOTE SUBJECTIVE: The patient was seen and examined at the bedside. She appears comfortable. PHYSICAL EXAMINATION VITAL SIGNS: Her temperature is 97.9, pulse 85, respirations 18, blood pressure 132/61, pulse oximetry is not recorded. HEENT: Head: Normocephalic and atraumatic. CHEST: Symmetrical, few scattered rhonchi. No significant wheezing. GASTROINTESTINAL: Soft and nontender. No organomegaly. EXTREMITIES: No pedal edema. SKIN: Clear with no cyanosis. No skin rashes. NEUROLOGIC: Limited at the present time. CARDIOVASCULAR: Regular systolic ejection murmur 2/6 noted. LABORATORY DATA: There is no new labs to review. ASSESSMENT: 1. Exacerbation of chronic obstructive pulmonary disease. 2. Acute bronchitis. 3. Obstructive sleep apnea. PLAN: The patient continues to improve. She is not short of breath at rest. The bronchospasm is resolving. We will continue her current nebulizer treatments and steroids can be tapered and switched to oral. Antibiotics are already oral. Discharge planning per primary attending. Casey Turk MD
--- NOTE | 2017-11-20 20:49 | DS ---
HOSPITAL COURSE: The patient is a 77-year-old female with a history of chronic bronchitis, emphysema, sleep apnea and diabetes mellitus who was admitted to the [facility] on 11/15 with a diagnosis of COPD exacerbation. She was evaluated by Dr. Lawrence, her student assistant and she responded well to nebulizer treatments and intravenous steroids. Over the past two days, we have been decreasing her steroids. When seen today, she is awake, alert and oriented. Her respirations are easy. Her lungs were clear. There was no respiratory distress. She had been complaining of constipation and finally, after the use of suppository yesterday morning and a Fleet Enema yesterday afternoon, this morning the patient had a decent bowel movement. As planned, the patient is ready for discharge to home. She is being discharged in improved condition. The Solu-Medrol is to be discontinued. Medrol Dosepak was called in to her local [facility] for her to continue tapering down; other medications that she was on admission are to be continued. She will make an appointment to see me in the office one week post discharge for followup. FINAL DIAGNOSES: 1. Chronic obstructive pulmonary disease exacerbation. 2. Chronic bronchitis. 3. Sleep apnea. 4. [id number] diabetes mellitus. Taj York MD LORRIE
== END 2017-11-19 15:07 | disposition home or self-care (01) | DRG 192 ==
LOC: ED 23:03 → ERH 11-15 01:53 → 2RNO 11-15 03:13 → OBSVTOIN 11-15 13:40 → 3RSO 11-16 13:01
PROVIDERS: ADMIT Internal Medicine; ATTEND Internal Medicine
DX: J44.1 Chronic obstructive pulmonary disease with (acute) exacerbation (principal); J44.0 Chronic obstructive pulmonary disease with (acute) lower respiratory infection; J20.9 Acute bronchitis, unspecified; G47.33 Obstructive sleep apnea (adult) (pediatric); N28.9 Disorder of kidney and ureter, unspecified; K59.00 Constipation, unspecified; E11.9 Type 2 diabetes mellitus without complications; Z96.652 Presence of left artificial knee joint; Z79.84 Long term (current) use of oral hypoglycemic drugs; Z79.82 Long term (current) use of aspirin; Z88.0 Allergy status to penicillin; Z91.19 Patient's noncompliance with other medical treatment and regimen; Z99.81 Dependence on supplemental oxygen

== ENCOUNTER 2018-02-12 02:24 | Emergency (ER) | payer MEDICARE, BC ==
[2018-02-12 02:25] VITALS: BMI 29.9
[2018-02-12 02:37] VITALS: RESP 17; TEMP 98
--- NOTE | 2018-02-12 02:38 | ED PDOC ---
Arrival/HPI - General Chief Complaint: Back Pain Time Seen by Provider: 02/12/18 02:25 Historian: Patient - History of Present Illness Narrative History of Present Illness (Text): 02/12/18 02:37 Jazmyn Coates is a 77 year old female, whose past medical history includes COPD , asthma, diabetes, and sleep apnea, who presents to the Emergency department brought in by EMS complaining of back pain. Patient states she has been experiencing left lower back pain, worsened with certain movements, since yesterday afternoon. Patient states she has not taken any medication for pain at home. Patient denies any fever, chills, abdominal pain, nausea, vomiting, diarrhea, urinary symptoms, neck pain, headache, dizziness, or any other complaints. Symptom Onset: Gradual Symptom Course: Unchanged Activities at Onset: Light Context: Home Past Medical History - Provider Review Nursing Documentation Reviewed: Yes - Past History Past History: Non-Contributing - Infectious Disease Hx of Infectious Diseases: None - Tetanus Immunization Tetanus Immunization: Unknown - Reproductive Menopause: Yes - Past Medical History Past Medical History: Non-Contributing - Cardiac Hx Cardiac Disorders: No - Pulmonary Hx Asthma: Yes Hx Chronic Obstructive Pulmonary Disease (COPD): Yes Hx Pneumonia: Yes - Neurological Hx Neurological Disorder: Yes (Headaches) Hx Dizziness: Yes - HEENT Hx HEENT Disorder: Yes Hx Cataracts: Yes (b/l) Hx Deafness: Yes (b/l hearing aids) - Renal Hx Renal Disorder: No - Endocrine/Metabolic Hx Diabetes Mellitus Type 2: Yes - Hematological/Oncological Hx Blood Disorders: No - Integumentary Hx Dermatological Disorder: No - Musculoskeletal/Rheumatological Hx Arthritis: Yes Hx Falls: Yes Hx Unsteady Gait: Yes (Cane) - Gastrointestinal Hx Gall Bladder Disease: Yes - Genitourinary/Gynecological Hx Urinary Tract Infection: Yes - Psychiatric Hx Psychophysiologic Disorder: No Hx Substance Use: No - Surgical History Hx Joint Replacement: Yes - Anesthesia Hx Anesthesia: Yes Hx Anesthesia Reactions: No Hx Malignant Hyperthermia: No - Suicidal Assessment Feels Threatened In Home Enviroment: No Family/Social History - Physician Review Nursing Documentation Reviewed: Yes Family/Social History: Unknown Family HX Smoking Status: Never Smoked Hx Alcohol Use: No Hx Substance Use: No Hx Substance Use Treatment: No Allergies/Home Meds Allergies/Adverse Reactions: Allergies ampicillin Allergy (Verified 02/12/18 02:37) ANAPHYLAXIS Penicillins Allergy (Verified 02/12/18 02:37) ANAPHYLAXIS pregabalin [From Lyrica] Allergy (Verified 02/12/18 02:37) RASH Home Medications: Home Meds Medication Instructions Recorded Confirmed Albuterol/Ipratropium [Duoneb 3 3 ml IN Q4 PRN 11/14/17 02/12/18 mg/0.5 mg (3 ml) UD] Aspirin [Adult Aspirin] 81 mg PO DAILY 11/14/17 02/12/18 Beclomethasone Dipropionate [Qvar 8.7 gm IH Q6 PRN 11/14/17 02/12/18 80 mcg] Bran/Gum/Fib/Rosy/Psyl/Kelp/Pec 1,000 mg PO DAILY 11/14/17 02/12/18 [Fiber 6 Tablet] Brimonidine Tartrate [Alphagan P 5 ml BOTHEYES BID 11/14/17 02/12/18 0.1 % Ophth] Furosemide [Lasix] 40 mg PO DAILY 11/14/17 02/12/18 Glipizide [Glipizide ER] 5 mg PO BID 11/14/17 02/12/18 Multivit-Min/Folic Acid/[id number] 1 each PO DAILY 11/14/17 02/12/18 [Alive Women's Gummy Vitamins] Tolterodine Tartrate [Detrol LA] 4 mg PO DAILY 11/14/17 02/12/18 metFORMIN [glucOPHAGE] 500 mg PO BID 11/14/17 02/12/18 Review of Systems - Physician Review All systems were reviewed & negative as marked: Yes - Review of Systems Constitutional: Normal. absent: Fevers Eyes: Normal ENT: Normal Respiratory: Normal. absent: SOB, Cough Cardiovascular: Normal. absent: Chest Pain Gastrointestinal: Normal. absent: Abdominal Pain, Diarrhea, Nausea, Vomiting Genitourinary Female: Normal. absent: Dysuria, Frequency, Hematuria, Urine Output Changes Musculoskeletal: Back Pain. absent: Neck Pain Skin: Normal. absent: Rash Neurological: Normal. absent: Headache, Dizziness Endocrine: Normal Hemo/Lymphatic: Normal Psychiatric: Normal Physical Exam Vital Signs Reviewed: Yes Vital Signs Temp Pulse Resp BP Pulse Ox 02/12/18 06:25 77 17 114/62 97 02/12/18 04:25 84 18 115/64 96 02/12/18 02:34 98 F 89 17 117/61 96 Temperature: Afebrile Blood Pressure: Normal Pulse: Regular Respiratory Rate: Normal Appearance: Positive for: Well-Appearing, Non-Toxic, Comfortable Pain Distress: None Mental Status: Positive for: Alert and Oriented X 3 - Systems Exam Head: Present: Atraumatic, Normocephalic Pupils: Present: PERRL Extroacular Muscles: Present: EOMI Conjunctiva: Present: Normal Mouth: Present: Moist Mucous Membranes Neck: Present: Normal Range of Motion Respiratory/Chest: Present: Clear to Auscultation, Good Air Exchange. No: Respiratory Distress, Accessory Muscle Use Cardiovascular: Present: Regular Rate and Rhythm, Normal S1, S2. No: Murmurs Abdomen: No: Tenderness, Distention, Peritoneal Signs Back: Present: Normal Inspection. No: CVA Tenderness, Midline Tenderness, Paraspinal Tenderness Upper Extremity: Present: Normal Inspection. No: Cyanosis, Edema Lower Extremity: Present: Normal Inspection. No: Edema Neurological: Present: GCS=15, CN II-XII Intact, Speech Normal Skin: Present: Warm, Dry, Normal Color. No: Rashes Psychiatric: Present: Alert, Oriented x 3, Normal Insight, Normal Concentration Medical Decision Making ED Course and Treatment: 02/12/18 02:37 Impression: 77 year old female complaining of left lower back pain since yesterday afternoon. Plan: -- XR Lumbar Spine -- Urinalysis -- Tylenol -- Reassess and disposition Progress Notes: 02/12/18 04:22 XR Lumbar Spine reviewed, shows no acute processes/fracture. - Lab Interpretations Lab Results: Lab Results 02/12/18 04:10: Urine Color Yellow, Urine Appearance Sl cloudy, Urine pH 7.5, Ur Specific [place] 1.010, Urine Protein Negative, Urine Glucose (UA) Negative, Urine Ketones Negative, Urine Blood Negative, Urine Nitrate Negative, Urine Bilirubin Negative, Urine Urobilinogen 0.2, Ur Leukocyte Esterase Small H, Urine RBC 0 - 2, Urine WBC 2 - 5, Ur Epithelial Cells 0 - 2, Urine Bacteria Occ - RAD Interpretation Radiology Orders: 02/12/18 02:38 LS SPINE WITH OBL > 18 YRS OLD [RAD] Stat Professor Of Art History: ED Physician - Medication Orders Current Medication Orders: Discontinued Medications Acetaminophen (Tylenol 325mg Tab) 650 mg PO STAT STA Stop: 02/12/18 02:39 Last Admin: 02/12/18 02:53 Dose: 650 mg MAR Pain/Vitals Document 02/12/18 02:53 AME (Rec: 02/12/18 02:53 AME [id number]) Pain Reassessment Is This A Pain ReAssessment? No Sleep Is patient sleeping during reassessment? No Presence of Pain Presence of Pain Yes Pain Scale Used Pain Scale Used Numeric Location Left, Right or Bilateral Right Upper or Lower Lower Pain Location Body Site Back Intensity 5 Scale Used Numeric Pain Behavior Restlessness Facial Grimacing - Scribe Statement The provider has reviewed the documentation as recorded by the Scribe Lesley Haley All medical record entries made by the Scribe were at my direction and personally dictated by me. I have reviewed the chart and agree that the record accurately reflects my personal performance of the history, physical exam, medical decision making, and the department course for this patient. I have also personally directed, reviewed, and agree with the discharge instructions and disposition. Disposition/Present on Arrival - Present on Arrival Any Indicators Present on Arrival: No History of DVT/PE: No History of Uncontrolled Diabetes: No Urinary Catheter: No History of Decub. Ulcer: No History Surgical Site Infection Following: None - Disposition Have Diagnosis and Disposition been Completed?: Yes Diagnosis: Back pain Disposition: HOME/ ROUTINE Disposition Time: 06:30 Condition: GOOD Discharge Instructions (ExitCare): Low Back Pain (DC) Additional Instructions: take Tylenol as needed for pain Referrals: Taj York MD [Primary Care Provider] - Follow up with primary Forms: [email or web address] (Malay)
[2018-02-12 05:05] LABS: PH,URINE 7.5 (4.7-8.0); URINE BILIRUBIN NEGATIVE (NEGATIVE); URINE BLOOD NEGATIVE (NEGATIVE); URINE GLUCOSE (UA) NEGATIVE (NEGATIVE); URINE LEUKOCYTE ESTERASE SMALL Leu/uL (NEGATIVE); URINE PROTEIN NEGATIVE mg/dL (<30 mg/dL); URINE UROBILINOGEN 0.2 E.U./dL (<1 E.U./dL)
[2018-02-12 05:32] LABS: URINE APPEARANCE SL CLOUDY (CLEAR); URINE COLOR YELLOW (YELLOW)
[2018-02-12 05:36] LABS: URINE RBC 0 - 2 /hpf (0-2)
[2018-02-12 05:37] LABS: URINE BACTERIA OCC (NEG); URINE EPITHELIAL CELLS 0 - 2 /hpf (0-5)
[2018-02-12 06:54] VITALS: BP 114/62; PULSE 77; O2SAT 97
--- NOTE | 2018-02-12 09:16 | RAD ---
Date of service: 02/12/2018 PROCEDURE: Radiographs of the Lumbar Spine. HISTORY: Back pain COMPARISON: No prior. FINDINGS: BONES: No evidence of acute compression fractures nor retropulsed fragments. Straightening of the normal lumbar lordosis. Vertebral bodies and facets otherwise normally aligned. DISC SPACES: Significant multilevel degenerative spondylosis lumbar as well as visualized lower thoracic spine. Changes include significant disc space narrowing endplate eburnation with anterolateral and smaller posterior osteophyte formation. The facet joints also hypertrophic L5-S1 through the L1-L2 levels OTHER FINDINGS: None. IMPRESSION: No acute compression fractures. Significant multilevel degenerative spondylosis as described. Straightening of the normal lumbar lordosis
== END 2018-02-12 06:56 | disposition home or self-care (01) ==
LOC: ED 02:24
DX: M54.5 Low back pain (principal); E11.9 Type 2 diabetes mellitus without complications; J44.9 Chronic obstructive pulmonary disease, unspecified

== ENCOUNTER 2018-03-24 08:47 | Inpatient (IN) | payer MEDICARE, BC ==
[2018-03-24 08:58] VITALS: BMI 31.2
[2018-03-24] MEDS ORDERED: Sodium Chloride 0.9% 1,000 ML IV STA (09:24)
[2018-03-24 09:52] LABS: BASO # 0.03 K/mm3 (0.0-2.0); BASO % 0.3 % (0.0-3.0); EOS # 1.3 (0.0-0.7); EOS % 12.3 % (1.5-5.0); GRAN # 6.93 (1.4-6.5); GRAN % 65.8 % (50.0-68.0); HEMOGLOBIN 10.6 g/dL (12.0-16.0); LYMPH # 1.6 (1.2-3.4); LYMPH % 15.2 % (22.0-35.0); MEAN CELL VOLUME 93.6 fl (80.0-105.0); MEAN CORPUSCULAR HEMOGLOBIN 29.6 pg (25.0-35.0); MEAN CORPUSCULAR HGB CONC 31.6 g/dl (31.0-37.0); MEAN PLATELET VOLUME 11.4 fl (7.0-11.0); MONO # 0.7 (0.1-0.6); MONO % 6.4 % (1.0-6.0); RBC 3.58 10^6/uL (3.5-6.1); WHITE BLOOD COUNT 10.5 10^3/ul (4.5-11.0)
[2018-03-24 09:56] LABS: ALB/GLOB RATIO 1.3 (1.1-1.8); ALBUMIN 3.5 g/dL (3.0-4.8); CALCIUM 8.6 mg/dL (8.4-10.5)
[2018-03-24 09:59] LABS: INR 1.04
--- NOTE | 2018-03-24 09:59 | ED PDOC ---
Arrival/HPI - History of Present Illness Narrative History of Present Illness (Text): 03/24/18 09:47 Pt is a 78 yo F with pmhx of Chronic bronchitis, emphysema, NIDDM, and sleep apnea who presents to the ED for rectal bleeding. She states that at 1:30 AM she had the feeling that she had to have a BM, and she states she passed something but is not sure that it was stool. She states that the toilet was red and was unable to see if she was passing clots or not. She denies having any abdominal pain before or during her BM. She says that this is the first time she has ever had these types of symptoms before. To her recollection her last normal BM was yesterday afternoon and there was no change to the color or caliber of that stool. She admits to taking ASA 81mg everyday, but is not on any other blood thinners. She denies fevers, chills, CP, palpitations, SOB, nausea, vomiting, diarrhea, abdominal pain, dysuria or frequency. She does admit to having a burning abdominal discomfort recently which she has been taking tums for, but usually just drinks a lot of water when it happens. She also denies any recent travel or eating at a restaurant. Pmhx: COPD, NIDDM, sleep apnea Pshx: carpal tunnel release, L Knee replacement All: erma HICKEY Fam Hx: Mom - breast ca, Dad - emphysema Time/Duration: 4-6 hours Symptom Onset: Sudden Symptom Course: Unchanged Activities at Onset: Rest <Kristi Bustamante - Last Filed: 03/24/18 18:44> <lOi Machado - Last Filed: 03/25/18 15:11> - General Chief Complaint: GI Problem Time Seen by Provider: 03/24/18 08:52 Past Medical History - Past History Past History: Non-Contributing - Infectious Disease Hx of Infectious Diseases: None - Tetanus Immunization Tetanus Immunization: Unknown - Past Medical History Past Medical History: Non-Contributing - Cardiac Hx Cardiac Disorders: No - Pulmonary Hx Asthma: Yes Hx Chronic Obstructive Pulmonary Disease (COPD): Yes Hx Pneumonia: Yes - Neurological Hx Neurological Disorder: Yes (Headaches) Hx Dizziness: Yes - HEENT Hx HEENT Disorder: Yes Hx Cataracts: Yes (b/l) Hx Deafness: Yes (b/l hearing aids) - Renal Hx Renal Disorder: No - Endocrine/Metabolic Hx Diabetes Mellitus Type 2: Yes - Hematological/Oncological Hx Blood Disorders: No - Integumentary Hx Dermatological Disorder: No - Musculoskeletal/Rheumatological Hx Arthritis: Yes Hx Falls: Yes Hx Unsteady Gait: Yes (Cane) - Gastrointestinal Hx Gall Bladder Disease: Yes - Genitourinary/Gynecological Hx Urinary Tract Infection: Yes - Psychiatric Hx Psychophysiologic Disorder: No Hx Substance Use: No - Surgical History Hx Joint Replacement: Yes - Anesthesia Hx Anesthesia: Yes Hx Anesthesia Reactions: No Hx Malignant Hyperthermia: No - Suicidal Assessment Feels Threatened In Home Enviroment: No <Kristi Bustamante - Last Filed: 03/24/18 18:44> Family/Social History Family/Social History: Neoplasm/Cancer Smoking Status: Never Smoked Hx Alcohol Use: No Hx Substance Use: No Hx Substance Use Treatment: No <Kristi Bustamante - Last Filed: 03/24/18 18:44> Allergies/Home Meds <Kristi Bustamante - Last Filed: 03/24/18 18:44> <Oli Machado - Last Filed: 03/25/18 15:11> Allergies/Adverse Reactions: Allergies ampicillin Allergy (Verified 03/24/18 11:48) ANAPHYLAXIS Penicillins Allergy (Verified 03/24/18 11:48) ANAPHYLAXIS pregabalin [From Lyrica] Allergy (Verified 03/24/18 11:48) RASH Home Medications: Home Meds Medication Instructions Recorded Confirmed Albuterol/Ipratropium [Duoneb 3 3 ml IN Q4 PRN 11/14/17 03/24/18 mg/0.5 mg (3 ml) UD] Aspirin [Adult Aspirin] 81 mg PO DAILY 11/14/17 03/24/18 Bran/Gum/Fib/Rosy/Psyl/Kelp/Pec 1,000 mg PO DAILY 11/14/17 03/24/18 [Fiber 6 Tablet] Brimonidine Tartrate [Alphagan P 5 ml BOTHEYES BID 11/14/17 03/24/18 0.1 % Ophth] Furosemide [Lasix] 40 mg PO DAILY 11/14/17 03/24/18 Glipizide [Glipizide ER] 5 mg PO BID 11/14/17 03/24/18 Multivit-Min/Folic Acid/Ynk146 1 each PO DAILY 11/14/17 03/24/18 [Alive Women's Gummy Vitamins] metFORMIN [glucOPHAGE] 500 mg PO BID 11/14/17 03/24/18 Diclofenac Sodium [Diclofenac 100 mg PO DAILY 03/24/18 03/24/18 Sodium ER] Review of Systems - Physician Review All systems were reviewed & negative as marked: Yes - Review of Systems Constitutional: absent: Fatigue, Fevers Respiratory: absent: SOB, Cough, Wheezing Cardiovascular: absent: Chest Pain, Palpitations, Syncope Gastrointestinal: absent: Abdominal Pain, Nausea, Vomiting Genitourinary Female: absent: Dysuria, Frequency <Kristi Bustamante - Last Filed: 03/24/18 18:44> Physical Exam Vital Signs Temp Pulse Resp BP Pulse Ox 03/24/18 08:57 97.2 F L 84 17 162/71 H 93 L Temperature: Afebrile Blood Pressure: Hypertensive Pulse: Regular Respiratory Rate: Normal Appearance: Positive for: Well-Appearing, Non-Toxic, Comfortable Pain Distress: None Mental Status: Positive for: Alert and Oriented X 3 - Systems Exam Head: Present: Atraumatic, Normocephalic Pupils: Present: PERRL Extroacular Muscles: Present: EOMI Respiratory/Chest: Present: Clear to Auscultation, Decreased Breath Sounds. No: Respiratory Distress, Accessory Muscle Use Cardiovascular: Present: Regular Rate and Rhythm, Normal S1, S2. No: Murmurs, Rub, Gallop Abdomen: Present: Normal Bowel Sounds. No: Tenderness, Distention, Peritoneal Signs, Rebound, Guarding Rectal: Present: Occult Blood, Gross Blood, Normal Rectal Tone, Other (Hemeoccult +). No: Rectal Tenderness, Hemorrhoids, Fissures, Nodule/Mass/Lesions Neurological: Present: GCS=15, Speech Normal Skin: Present: Warm, Dry, Normal Color. No: Rashes Psychiatric: Present: Alert, Oriented x 3, Normal Insight, Normal Concentration <Kristi Bustamante - Last Filed: 03/24/18 18:44> Vital Signs Temp Pulse Resp BP Pulse Ox 03/24/18 08:57 97.2 F L 84 17 162/71 H 93 L <Oli Machado - Last Filed: 03/25/18 15:11> Medical Decision Making ED Course and Treatment: Pt is a 78 yo F with pmhx detailed above who presents for rectal bleed. - CBC - CMP - PT/PTT - CT abd/pelvis 03/24/18 10:02 Progress Note: Pt labs were seen, no INR is wnl, LFTs and platelets are normal. Pt is anemic with Hgb of 10.6 and HCT of 33.5. - Will call Dr. York to see which GI to consult 03/24/18 10:08 Progress Note: - Spoke with Dr. York who stated Dr. Magallanes for GI consult - Saw CXR - No acute pathology - read by me. 03/24/18 10:24 Progress Note: Pt was complaining of wheezing. 02 sat 99-100, but will give duonebs and steroids due to COPD hx recent COPD exacerbation - Duoneb tx - Solumedrol 125 IV 03/24/18 12:44 - RAD Interpretation Radiology Orders: 03/24/18 09:22 CHEST PORTABLE [RAD] Stat - Medication Orders Current Medication Orders: Sodium Chloride (Sodium Chloride 0.9%) 1,000 mls @ 999 mls/hr IV .Q1H1M STA Stop: 03/24/18 10:24 Discontinued Medications Pantoprazole Sodium (Protonix Inj) 40 mg IVP STAT STA Stop: 03/24/18 09:26 <Kristi Bustamante - Last Filed: 03/24/18 18:44> ED Course and Treatment: 03/24/18 11:[address] Prasad(GI). 03/24/18 11:30 Spoke GI fellow who states he will inform Dr. Prasad of the impending consult. He will follow up. - Lab Interpretations Lab Results: 03/24/18 09:35 03/24/18 09:35 Lab Results 03/24/18 09:35: Blood Type O POSITIVE, Antibody Screen Negative, BBK History Checked No verified bt 03/24/18 09:35: PT 12.0, INR 1.04, APTT 32.0 03/24/18 09:35: WBC 10.5, RBC 3.58, Hgb 10.6 L D, Hct 33.5 L, MCV 93.6 D, MCH 29.6, MCHC 31.6, RDW 13.0, Plt Count 209, MPV 11.4 H, Gran % 65.8, Lymph % (Auto) 15.2 L, [place] % (Auto) 6.4 H, Eos % (Auto) 12.3 H, Baso % (Auto) 0.3, Gran # 6.93 H, Lymph # (Auto) 1.6, [place] # (Auto) 0.7 H, Eos # (Auto) 1.3 H, Baso # (Auto) 0.03 03/24/18 09:35: Sodium 143, Potassium 4.4, Chloride 106, Carbon Dioxide 32, Anion Gap 10, BUN 20, Creatinine 1.1, Est GFR ( Amer) 58, Est GFR (Non-Af Amer) 48, Random Glucose 99, Calcium 8.6, Total Bilirubin 0.4, AST 19, ALT 32, Alkaline Phosphatase 50, Total Protein 6.2, Albumin 3.5, Globulin 2.7, Albumin/Globulin Ratio 1.3, Lipase 159 - RAD Interpretation Radiology Orders: 03/24/18 09:22 CHEST PORTABLE [RAD] Stat 03/24/18 10:11 ABDOMEN & PELVIS [ABD & PELVIS IV CONTRAST ONLY] [CT] Stat - Medication Orders Current Medication Orders: Discontinued Medications Sodium Chloride (Sodium Chloride 0.9%) 1,000 mls @ 999 mls/hr IV .Q1H1M STA Stop: 03/24/18 10:24 Last Admin: 03/24/18 10:06 Dose: 999 mls/hr eMAR Start Stop Document 03/24/18 10:06 LITHOGRAPHIC PRESS OPERATOR (Rec: 03/24/18 10:06 LITHOGRAPHIC PRESS OPERATOR [facility] [id number] Intravenous Solution Start Date 03/24/18 Start Time 10:06 Pantoprazole Sodium (Protonix Inj) 40 mg IVP STAT STA Stop: 03/24/18 09:26 Last Admin: 03/24/18 10:06 Dose: 40 mg IVP Administration Document 03/24/18 10:06 LITHOGRAPHIC PRESS OPERATOR (Rec: 03/24/18 10:06 LITHOGRAPHIC PRESS OPERATOR [facility] [id number]) Charges for Administration # of IVP Administrations 1 <Oli Machado - Last Filed: 03/25/18 15:11> - PA / MOLASSES FEED MIXER / Resident Statement GABBY has reviewed & agrees with the documentation as recorded. MD/DO has examined the patient and agrees with the treatment plan. <Oli Machado - Last Filed: 03/25/18 15:11> Disposition/Present on Arrival - Present on Arrival Any Indicators Present on Arrival: No History of DVT/PE: No History of Uncontrolled Diabetes: No Urinary Catheter: No History of Decub. Ulcer: No History Surgical Site Infection Following: None - Disposition Have Diagnosis and Disposition been Completed?: Yes Disposition Time: 16:00 <Kristi Bustamante - Last Filed: 03/24/18 18:44> - Present on Arrival Any Indicators Present on Arrival: No - Disposition Have Diagnosis and Disposition been Completed?: Yes <Oli Machado - Last Filed: 03/25/18 15:11> - Disposition Diagnosis: GI (gastrointestinal bleed) Disposition: HOSPITALIZED Patient Problems: Current Active Problems Problem Status Onset GI (gastrointestinal bleed) Acute Condition: FAIR
[2018-03-24] MEDS ORDERED: Iohexol 350 MG/100 ML VIAL ONE (10:17)
--- NOTE | 2018-03-24 11:38 | CT ---
Date of service: 03/24/2018 PROCEDURE: CT Abdomen and Pelvis with contrast HISTORY: GI bleed COMPARISON: None. TECHNIQUE: Following the intravenous administration of iodinated contrast material, a CT examination of the abdomen and pelvis performed from the domes of the diaphragms to the symphysis pubis with reformatted datasets provided in axial, sagittal and coronal planes. Oral contrast was not administered as per referring physician request. Coronal and sagittal reformats were generated. contrast dose: Omnipaque 350, 100 cc Radiation dose: Total exam DLP = 722.00 mGy-cm. This CT exam was performed using one or more of the following dose reduction techniques: Automated exposure control, adjustment of the mA and/or kV according to patient size, and/or use of iterative reconstruction technique. FINDINGS: LOWER THORAX: Mild cardiomegaly. Borderline pulmonary vascular congestion. LIVER: No hepatic mass is appreciate however there is mild intrahepatic biliary dilatation with the common hepatic duct measuring up to 14 mm and the proximal CBD measuring up to 11 mm tapering to a normal 5 mm at the distal most segment. No radiodense choledocholithiasis. This is likely a function of sending prior cholecystectomy. Clinically correlate further nevertheless. GALLBLADDER AND BILE DUCTS: Prior cholecystectomy. See biliary duct evaluation above. PANCREAS: Unremarkable. No gross lesion or ductal dilatation. SPLEEN: Unremarkable. ADRENALS: Unremarkable. No mass. KIDNEYS AND URETERS: 3.7 cm simple cyst exophytic off the lower pole right kidney. 1.56 cm simple cyst seen at the lower pole right kidney with a 1.2 simple cyst at the upper pole. There is an additional upper pole right kidney lucency too small to characterize. No obstructive uropathy bilaterally. No solid mass identified bilaterally. VASCULATURE: The abdominal aorta is atherosclerotic but not aneurysmal as well as the visualized iliofemoral arterial system down to immediately distal to the level of the bifurcation of the common femoral arteries. BOWEL: There is extensive colonic diverticular disease throughout the colon but concentrated mainly at the distal descending and proximal to mid sigmoid segments without definite diverticulitis. No gross mass however retained fecal material is relatively prominent and may in fact indicate an element of constipation, which obscures evaluation of the lumen of the large bowel. Consider follow-up oral contrast abdomen pelvis CT or call lower endoscopy. No pericolic or perienteric reactive change. APPENDIX: Normal appendix. PERITONEUM: Unremarkable. No free fluid. No free air. LYMPH NODES: Unremarkable. No enlarged lymph nodes. BLADDER: Unremarkable. REPRODUCTIVE: Unremarkable. BONES: Advanced multilevel degenerative disc disease throughout the visualized thoracolumbar spine. No fracture or spondylolisthesis appreciated. OTHER FINDINGS: None. IMPRESSION: 1. Diffuse colonic diverticular changes are identified which are most concentrated at the distal descending through mid sigmoid segment. No overt CT pattern of acute diverticulitis at this time. Lack of oral contrast and prominent retained fecal material are identified obscuring the lumen. No gross constricting or obstructing mass evident at this time. Consider follow-up oral contrasted abdomen and pelvis CT examination. Lower endoscopy is also alternative. No definitive active extravasation of enhanced blood in the lumen of the large bowel. 2. Prior cholecystectomy with likely related biliary tree dilatation. No radiodense choledocholithiasis. 3. 3 simple cyst identified in the right kidney with the largest measuring 3.7 cm off the lower pole appear tiny lucency seen at the upper pole right kidney too small to characterize. No obstructive uropathy bilaterally.
--- NOTE | 2018-03-24 11:39 | RAD ---
Date of service: 03/24/2018 HISTORY: GI bleed COMPARISON: Frontal chest 11/14/2017. FINDINGS: LUNGS: No active pulmonary disease. PLEURA: No significant pleural effusion identified, no pneumothorax apparent. CARDIOVASCULAR: Prominent cardiac silhouette reiterated. No pulmonary vascular congestion. OSSEOUS STRUCTURES: No significant abnormalities. VISUALIZED UPPER ABDOMEN: Normal. OTHER FINDINGS: None. IMPRESSION: No interval acute cardiopulmonary disease appreciated. Prominent cardiac silhouette unchanged. No definite pulmonary vascular congestion.
[2018-03-24 11:51] LABS: URINE BILIRUBIN NEGATIVE (NEGATIVE); URINE BLOOD MODERATE (NEGATIVE); URINE GLUCOSE (UA) NEGATIVE (NEGATIVE); URINE LEUKOCYTE ESTERASE TRACE Leu/uL (NEGATIVE); URINE PROTEIN NEGATIVE mg/dL (<30 mg/dL); URINE UROBILINOGEN 0.2 E.U./dL (<1 E.U./dL)
[2018-03-24 11:52] LABS: URINE APPEARANCE CLEAR (CLEAR); URINE COLOR YELLOW (YELLOW)
[2018-03-24 12:07] LABS: URINE BACTERIA MOD (NEG)
[2018-03-24] MEDS ORDERED: Albuterol-Ipratrop 3 mg / 0.5 (3 ml) UD IH STA (12:32)
[2018-03-24] MEDS ORDERED: Albuterol-Ipratrop 3 mg / 0.5 (3 ml) UD INH PRN (13:19)
--- NOTE | 2018-03-24 15:19 | HP ---
HISTORY OF PRESENT ILLNESS: The patient presents to the emergency room complaining of bright red blood per rectum x2 overnight. She denies any abdominal pain or abdominal cramping. She denies any nausea or vomiting. She denies any change in her diet. She denies any history of hemorrhoids. The patient states that simply in the middle of the night, she felt like having a bowel movement and the toilet bowl was bright red and happened a second time in the assisted living administrator hours. She denies any chest pain, shortness of breath, or lightheadedness. She is known to have a history of chronic obstructive pulmonary disease, chronic bronchitis, non-insulin dependent diabetes mellitus. MEDICATIONS: At the time of admission included DuoNeb nebulizer treatments, aspirin, Alphagan eye drops, Lasix, glipizide, and metformin. ALLERGIES: SHE HAS NO KNOWN MEDICAL ALLERGIES. SOCIAL HISTORY: She is a nonsmoker, nonalcoholic drinker. She is a . REVIEW OF SYSTEMS: Otherwise unremarkable. PHYSICAL EXAMINATION: VITAL SIGNS: She is afebrile at 97.2 degrees Fahrenheit, blood pressure is 164/70, heart rate 74. GENERAL: The patient is awake, alert, and oriented. HEENT: Her and lips do look a little pale. Conjunctivae are pink. Head, eyes, ears, nose, and throat are unremarkable. NECK: Supple with no lymphadenopathy. No goiter. LUNGS: Clear to auscultation and percussion. HEART: Regular. No murmurs are appreciated. ABDOMEN: Soft, nontender with no organomegaly. EXTREMITIES: Free of cyanosis, clubbing, or edema. NEUROLOGIC: The patient is awake, alert, and oriented with no focal neurological signs. LABORATORY STUDIES: Reveal the patient to be O+ type blood. White blood cell count is 10.5, hemoglobin and hematocrit are 10.6 and 33.5 respectively, and platelet count is 209. Sodium is 143, potassium 4.4. Blood urea nitrogen 20, creatinine 1.1. Glucose is 99. PT/INR is 1.04. Chest x-ray showed no acute disease. CAT scan of the abdomen showed diverticulosis without diverticulitis in the distal descending and sigmoid colons. She is status post cholecystectomy. CAT scan also showed some benign renal cysts. So the patient is being admitted with acute GI bleed. Cell counts will be followed. Consultation from Gastroenterology, Dr. Magallanes is requested. The patient will be reevaluated in the morning. Taj York MD
[2018-03-24] MEDS ORDERED: Influenza Vaccine 60 mcg/0.5 mL SYR (4YR UP) IM ONE (15:42)
[2018-03-24] MEDS ORDERED: Pneumococcal 23-Valent Vaccine IM ONE (15:42)
--- NOTE | 2018-03-24 15:42 | CP.PCM.CON ---
<Alex Cook - Last Filed: 03/24/18 15:37> History of Present Illness - History of Present Illness History of Present Illness: GI Fellow PGY4, Consult note. Jazmyn Coates 78F with history of chronic bronchitis diabetes, htn, OA, presenting with rectal bleeding. Bleeding started lastnight around 1am. She denies abdominal pain, hematemesis, n/v. She continued to have 5 more bloody BMs. She is taking NSAIDs for RA and aspirin for cardioprophylaxis. She denies history of GI bleed. Previous CSPY was 4 years ago and was reportedly normal. Upon arrival, she had 2 bloody BMs. Hb was ~10 in ED, but was ~13 two months ago. She was started on PPI. PMHx - as above PSHx - Cholecystectomy FMHx - unremarkable SocHx - denies alcohol, smoking. 12pt ROS neg except for above. Past Patient History - Infectious Disease Hx of Infectious Diseases: None - Tetanus Immunizations Tetanus Immunization: Unknown - Past Social History Smoking Status: Never Smoked - CARDIAC Hx Cardiac Disorders: No - PULMONARY Hx Asthma: Yes Hx Chronic Obstructive Pulmonary Disease (COPD): Yes Hx Pneumonia: Yes - NEUROLOGICAL Hx Neurological Disorder: Yes (Headaches) Hx Dizziness: Yes - HEENT Hx HEENT Problems: Yes Hx Cataracts: Yes (b/l) Hx Deafness: Yes (b/l hearing aids) - RENAL Hx Chronic Kidney Disease: No - ENDOCRINE/METABOLIC Hx Diabetes Mellitus Type 2: Yes - HEMATOLOGICAL/ONCOLOGICAL Hx Blood Disorders: No - INTEGUMENTARY Hx Dermatological Problems: No - MUSCULOSKELETAL/RHEUMATOLOGICAL Hx Arthritis: Yes Hx Falls: Yes Hx Unsteady Gait: Yes (Cane) - GASTROINTESTINAL Hx Gall Bladder Disease: Yes - GENITOURINARY/GYNECOLOGICAL Hx Urinary Tract Infection: Yes - PSYCHIATRIC Hx Psychophysiologic Disorder: No Hx Substance Use: No - SURGICAL HISTORY Hx Joint Replacement: Yes - ANESTHESIA Hx Anesthesia: Yes Hx Anesthesia Reactions: No Hx Malignant Hyperthermia: No Meds Allergies/Adverse Reactions: Allergies Allergy/AdvReac Type Severity Reaction Status Date / Time ampicillin Allergy ANAPHYLAXIS Verified 03/24/18 11:48 Penicillins Allergy ANAPHYLAXIS Verified 03/24/18 11:48 pregabalin [From Lyrica] Allergy RASH Verified 03/24/18 11:48 - Medications Medications: Current Medications Albuterol/Ipratropium (Duoneb 3 Mg/0.5 Mg (3 Ml) Ud) 3 ml INH [id number] PRN PRN Reason: Wheezing Furosemide (Lasix) 40 mg PO DAILY [facility] Glipizide (Glucotrol Xl) 5 mg PO BID [facility] Metformin HCl (Glucophage) 500 mg PO BID [facility] Methylprednisolone (Medrol) 4 mg PO DAILY [facility] Last Admin: 03/24/18 14:12 Dose: 4 mg Alphagan P 0.1 % (Ophth (Home Med)) 0 ml BOTHEYES BID [facility] Physical Exam - Constitutional Appears: Well, No Acute Distress - Head Exam Head Exam: NORMAL INSPECTION, NORMOCEPHALIC - Eye Exam Eye Exam: EOMI, Normal appearance - ENT Exam ENT Exam: Mucous Membranes Moist, Normal Exam - Respiratory Exam Respiratory Exam: Clear to Auscultation Bilateral, NORMAL BREATHING PATTERN. absent: Wheezes - Cardiovascular Exam Cardiovascular Exam: REGULAR RHYTHM, +S1, +S2 - GI/Abdominal Exam GI & Abdominal Exam: Normal Bowel Sounds, Soft. absent: Distended, Organ omegaly, Tenderness - Rectal Exam Rectal Exam: Bloody Stool - Extremities Exam Extremities exam: Positive for: normal inspection - Neurological Exam Neurological exam: Alert, CN II-XII Intact, Oriented x3 - Psychiatric Exam Psychiatric exam: Normal Affect, Normal Mood - Skin Skin Exam: Dry, Pallor Results - Vital Signs Recent Vital Signs: Last Vital Signs Temp 97.7 F 03/24/18 14:02 Pulse 69 03/24/18 14:02 Resp 23 03/24/18 14:02 BP 112/54 L 03/24/18 14:02 Pulse Ox 95 03/24/18 14:02 - Labs Result Diagrams: 03/24/18 09:35 03/24/18 09:35 Labs: Laboratory Results - last 24 hr 03/24/18 03/24/18 03/24/18 09:35 09:35 09:35 WBC 10.5 RBC 3.58 Hgb 10.6 L D Hct 33.5 L MCV 93.6 D MCH 29.6 MCHC 31.6 RDW 13.0 Plt Count 209 MPV 11.4 H Gran % 65.8 Lymph % (Auto) 15.2 L [place] % (Auto) 6.4 H Eos % (Auto) 12.3 H Baso % (Auto) 0.3 Gran # 6.93 H Lymph # (Auto) 1.6 [place] # (Auto) 0.7 H Eos # (Auto) 1.3 H Baso # (Auto) 0.03 PT 12.0 INR 1.04 APTT 32.0 Sodium 143 Potassium 4.4 Chloride 106 Carbon Dioxide 32 Anion Gap 10 BUN 20 Creatinine 1.1 Est GFR ( Amer) 58 Est GFR (Non-Af Amer) 48 Random Glucose 99 Calcium 8.6 Total Bilirubin 0.4 AST 19 ALT 32 Alkaline Phosphatase 50 Total Protein 6.2 Albumin 3.5 Globulin 2.7 Albumin/Globulin Ratio 1.3 Lipase 159 Urine Color Urine Appearance Urine pH Ur Specific [place] Urine Protein Urine Glucose (UA) Urine Ketones Urine Blood Urine Nitrate Urine Bilirubin Urine Urobilinogen Ur Leukocyte Esterase Urine RBC Urine WBC Ur Epithelial Cells Urine Bacteria Blood Type Blood Type Confirm Antibody Screen BBK History Checked 03/24/18 03/24/18 03/24/18 09:35 11:37 12:25 WBC RBC Hgb Hct MCV MCH MCHC RDW Plt Count MPV Gran % Lymph % (Auto) [place] % (Auto) Eos % (Auto) Baso % (Auto) Gran # Lymph # (Auto) [place] # (Auto) Eos # (Auto) Baso # (Auto) PT INR APTT Sodium Potassium Chloride Carbon Dioxide Anion Gap BUN Creatinine Est GFR ( Amer) Est GFR (Non-Af Amer) Random Glucose Calcium Total Bilirubin AST ALT Alkaline Phosphatase Total Protein Albumin Globulin Albumin/Globulin Ratio Lipase Urine Color Yellow Urine Appearance Clear Urine pH 7.0 Ur Specific [place] <= 1.005 Urine Protein Negative Urine Glucose (UA) Negative Urine Ketones Negative Urine Blood Moderate H Urine Nitrate Negative Urine Bilirubin Negative Urine Urobilinogen 0.2 Ur Leukocyte Esterase Trace H Urine RBC 10 - 15 Urine WBC 2 - 5 Ur Epithelial Cells 4 - 5 Urine Bacteria Mod Blood Type O POSITIVE Blood Type Confirm O POSITIVE Antibody Screen Negative BBK History Checked No verified bt Assessment & Plan - Assessment and Plan (Free Text) Assessment: #Acute blood loss anemia due to GI bleed #Chronic NSAID use #COPD - recently placed on steroid #RA #HTN #T2DM PLAN: -Likely lower GI, bleed must r/o upper GI bleed in setting of chronic NSAID use. -Monitor Hb closely, transfuse for Hb less than 7. -Hold NSAIDs, anticoagulation -Continue IV PPI BID for now -Possible colonoscopy Tuesday pending clinical course. - Date & Time Date: 03/24/18 Time: 15:43 <Desirae Magallanes V - Last Filed: 03/25/18 18:06> Meds - Medications Medications: Current Medications Albuterol/Ipratropium (Duoneb 3 Mg/0.5 Mg (3 Ml) Ud) 3 ml INH [id number] [facility] Last Admin: 03/25/18 12:00 Dose: 3 ml Furosemide (Lasix) 40 mg PO DAILY [facility] Last Admin: 03/25/18 10:20 Dose: 40 mg Glipizide (Glucotrol Xl) 5 mg PO BID [facility] Last Admin: 03/25/18 17:33 Dose: 5 mg Home Med (Home Med) 1 unit OU DAILY [facility] Methylprednisolone (Medrol) 4 mg PO DAILY [facility] Last Admin: 03/25/18 10:20 Dose: 4 mg Alphagan P 0.1 % (Ophth (Home Med)) 0 ml BOTHEYES BID [facility] Last Admin: 03/25/18 17:31 Dose: Not Given Pantoprazole Sodium (Protonix Inj) 40 mg IVP Q12 [facility] Last Admin: 03/25/18 10:20 Dose: 40 mg Results - Vital Signs Recent Vital Signs: Last Vital Signs Temp 97.8 F 03/25/18 01:06 Pulse 68 03/25/18 14:00 Resp 18 03/25/18 14:00 BP 132/68 03/25/18 14:00 Pulse Ox 94 L 03/25/18 14:00 - Labs Result Diagrams: 03/25/18 12:00 03/25/18 05:00 Labs: Laboratory Results - last 24 hr 03/24/18 03/24/18 03/24/18 09:35 17:55 20:40 WBC 11.5 H 10.8 RBC 3.33 L 3.29 L Hgb 10.0 L 9.8 L Hct 31.5 L 30.8 L MCV 94.6 93.6 MCH 30.0 29.8 MCHC 31.7 31.8 RDW 13.2 13.2 Plt Count 195 206 MPV 11.2 H 10.9 Sodium Potassium Chloride Carbon Dioxide Anion Gap BUN Creatinine Est GFR ( Amer) Est GFR (Non-Af Amer) POC Glucose (mg/dL) Random Glucose Calcium Phosphorus Magnesium Total Bilirubin AST ALT Alkaline Phosphatase Total Protein Albumin Globulin Albumin/Globulin Ratio Crossmatch See Detail 03/25/18 03/25/18 03/25/18 05:00 05:00 12:00 WBC 11.4 H 13.3 H RBC 3.22 L 3.21 L Hgb 9.4 L 9.6 L Hct 30.1 L 30.0 L MCV 93.5 93.5 MCH 29.2 29.9 MCHC 31.2 32.0 RDW 13.2 13.2 Plt Count 205 207 MPV 11.5 H 11.0 Sodium 141 Potassium 4.6 Chloride 106 Carbon Dioxide 28 Anion Gap 12 BUN 21 Creatinine 1.1 Est GFR ( Amer) 58 Est GFR (Non-Af Amer) 48 POC Glucose (mg/dL) Random Glucose 153 H Calcium 8.4 Phosphorus 4.5 Magnesium 1.7 Total Bilirubin 0.3 AST 18 ALT 29 Alkaline Phosphatase 51 Total Protein 5.8 Albumin 3.3 Globulin 2.5 Albumin/Globulin Ratio 1.4 Crossmatch 03/25/18 03/25/18 14:14 16:25 WBC RBC Hgb Hct MCV MCH MCHC RDW Plt Count MPV Sodium Potassium Chloride Carbon Dioxide Anion Gap BUN Creatinine Est GFR ( Amer) Est GFR (Non-Af Amer) POC Glucose (mg/dL) 164 H 146 H Random Glucose Calcium Phosphorus Magnesium Total Bilirubin AST ALT Alkaline Phosphatase Total Protein Albumin Globulin Albumin/Globulin Ratio Crossmatch Attending/Attestation - Attestation I have personally seen and examined this patient.: Yes I have fully participated in the care of the patient.: Yes I have reviewed all pertinent clinical information: Yes Notes (Text): This is a delayed addendum to GI consult report dictated by the GI Fellow.The patient was seen and examined earlier. Medical records, lab studies, imagings were reviewed. Last 24 hours events reviewed. Agreed with the above treatment plan as outlined in GI Fellow 's notes with the addition of the following Admitted with acute onset of maroon and bright red blood per rectum On examination abdomen soft non tender no mass CT scan was reviewed extensive diverticulosis History of taking NSAIDs Would benefit from EGD Followup hemoglobin PPI Risk benefits alternatives explained Scheduled for EGD Discussed with the PCP 03/25/18 18:04
[2018-03-24] MEDS ORDERED: Sodium Chloride 0.9% 1,000 ML IV SCH (16:45)
[2018-03-24] MEDS ORDERED: Etomidate 20 mg/10ml Inj IV ONE (16:45)
[2018-03-24] MEDS ORDERED: Propofol 10 mg/ml Inj (20 ML) ONE (16:46)
--- NOTE | 2018-03-24 17:56 | CP.PCM.CON ---
<Charles Nascimento - Last Filed: 03/24/18 18:11> History of Present Illness - History of Present Illness History of Present Illness: Charles Nascimento DO, PGY-1 ICU Consult Note for Dr. Carrillo Patient is a 78 year old female with PMH of COPD, DM2, and EDNA who presented to ED this AM with bright red rectal bleeding. She subsequently had EGD with repair of ulcer. Patient was seen and examined in PACU s/p EGD. She states that on admission her only complaint was rectal bleeding and has not had na usea/vomiting/diarrhea or abdominal pain. Patient is admitted to ICU for monitoring of HD stability, H/H. PMH: COPD, DM2, EDNA PSH: carpal tunnel release, L TKA All: PCN, lyrica Fam Hx: mother with breast CA, father with emphysema Soc Hx: denies current or prior tobacco use, alcohol, or drug use Review of Systems - Constitutional Constitutional: absent: Chills, Fever - EENT Nose/Mouth/Throat: Dry Mouth - Cardiovascular Cardiovascular: absent: Chest Pain, Dyspnea - Respiratory Respiratory: Wheezing. absent: Cough, Hemoptysis - Gastrointestinal Gastrointestinal: absent: Abdominal Pain, Nausea, Vomiting Past Patient History - Infectious Disease Hx of Infectious Diseases: None - Tetanus Immunizations Tetanus Immunization: Unknown - Past Social History Smoking Status: Never Smoked - CARDIAC Hx Cardiac Disorders: No - PULMONARY Hx Asthma: Yes Hx Chronic Obstructive Pulmonary Disease (COPD): Yes Hx Pneumonia: Yes - NEUROLOGICAL Hx Neurological Disorder: Yes (Headaches) Hx Dizziness: Yes - HEENT Hx HEENT Problems: Yes Hx Cataracts: Yes (b/l) Hx Deafness: Yes (b/l hearing aids) - RENAL Hx Chronic Kidney Disease: No - ENDOCRINE/METABOLIC Hx Diabetes Mellitus Type 2: Yes - HEMATOLOGICAL/ONCOLOGICAL Hx Blood Disorders: No - INTEGUMENTARY Hx Dermatological Problems: No - MUSCULOSKELETAL/RHEUMATOLOGICAL Hx Arthritis: Yes Hx Falls: Yes Hx Unsteady Gait: Yes (Cane) - GASTROINTESTINAL Hx Gall Bladder Disease: Yes - GENITOURINARY/GYNECOLOGICAL Hx Urinary Tract Infection: Yes - PSYCHIATRIC Hx Psychophysiologic Disorder: No Hx Substance Use: No - SURGICAL HISTORY Hx Joint Replacement: Yes - ANESTHESIA Hx Anesthesia: Yes Hx Anesthesia Reactions: No Hx Malignant Hyperthermia: No Meds Allergies/Adverse Reactions: Allergies Allergy/AdvReac Type Severity Reaction Status Date / Time ampicillin Allergy ANAPHYLAXIS Verified 03/24/18 11:48 Penicillins Allergy ANAPHYLAXIS Verified 03/24/18 11:48 pregabalin [From Lyrica] Allergy RASH Verified 03/24/18 11:48 - Medications Medications: Current Medications Albuterol/Ipratropium (Duoneb 3 Mg/0.5 Mg (3 Ml) Ud) 3 ml INH [id number] PRN PRN Reason: Wheezing Furosemide (Lasix) 40 mg PO DAILY [facility] Glipizide (Glucotrol Xl) 5 mg PO BID [facility] Sodium Chloride (Sodium Chloride 0.9%) 1,000 mls @ 75 mls/hr IV .[id number] [facility] Stop: 03/24/18 18:46 Methylprednisolone (Medrol) 4 mg PO DAILY [facility] Last Admin: 03/24/18 14:12 Dose: 4 mg Alphagan P 0.1 % (Ophth (Home Med)) 0 ml BOTHEYES BID [facility] Pantoprazole Sodium (Protonix Inj) 40 mg IVP Q12 [facility] Physical Exam - Constitutional Appears: Non-toxic, No Acute Distress - Head Exam Head Exam: ATRAUMATIC, NORMAL INSPECTION - Eye Exam Eye Exam: Normal appearance, PERRL - ENT Exam ENT Exam: Mucous Membranes Dry - Neck Exam Neck exam: Positive for: Full Rom, Normal Inspection - Respiratory Exam Respiratory Exam: Wheezes (faint expiratory wheezes bilaterally), NORMAL BREATHING PATTERN. absent: Accessory Muscle Use, Rales, Rhonchi - Cardiovascular Exam Cardiovascular Exam: REGULAR RHYTHM, RRR, +S1, +S2. absent: Diastolic murmur, Gallop, JVD, Rubs, Systolic Murmur - GI/Abdominal Exam GI & Abdominal Exam: Soft. absent: Distended, Guarding, Rebound, Tenderness - Extremities Exam Extremities exam: Positive for: normal inspection - Neurological Exam Neurological exam: Alert, Oriented x3 - Psychiatric Exam Psychiatric exam: Normal Affect, Normal Mood - Skin Skin Exam: Dry, Intact, Warm Results - Vital Signs Recent Vital Signs: Last Vital Signs Temp 98.6 F 03/24/18 17:40 Pulse 91 H 03/24/18 17:40 Resp 20 03/24/18 17:40 BP 147/57 L 03/24/18 17:40 Pulse Ox 92 L 03/24/18 17:40 - Labs Result Diagrams: 03/24/18 17:55 03/24/18 09:35 Labs: Laboratory Results - last 24 hr 03/24/18 03/24/18 03/24/18 09:35 09:35 09:35 WBC 10.5 RBC 3.58 Hgb 10.6 L D Hct 33.5 L MCV 93.6 D MCH 29.6 MCHC 31.6 RDW 13.0 Plt Count 209 MPV 11.4 H Gran % 65.8 Lymph % (Auto) 15.2 L [place] % (Auto) 6.4 H Eos % (Auto) 12.3 H Baso % (Auto) 0.3 Gran # 6.93 H Lymph # (Auto) 1.6 [place] # (Auto) 0.7 H Eos # (Auto) 1.3 H Baso # (Auto) 0.03 PT 12.0 INR 1.04 APTT 32.0 Sodium 143 Potassium 4.4 Chloride 106 Carbon Dioxide 32 Anion Gap 10 BUN 20 Creatinine 1.1 Est GFR ( Amer) 58 Est GFR (Non-Af Amer) 48 Random Glucose 99 Calcium 8.6 Total Bilirubin 0.4 AST 19 ALT 32 Alkaline Phosphatase 50 Total Protein 6.2 Albumin 3.5 Globulin 2.7 Albumin/Globulin Ratio 1.3 Lipase 159 Urine Color Urine Appearance Urine pH Ur Specific [place] Urine Protein Urine Glucose (UA) Urine Ketones Urine Blood Urine Nitrate Urine Bilirubin Urine Urobilinogen Ur Leukocyte Esterase Urine RBC Urine WBC Ur Epithelial Cells Urine Bacteria Blood Type Blood Type Confirm Antibody Screen BBK History Checked 03/24/18 03/24/18 03/24/18 09:35 11:37 12:25 WBC RBC Hgb Hct MCV MCH MCHC RDW Plt Count MPV Gran % Lymph % (Auto) [place] % (Auto) Eos % (Auto) Baso % (Auto) Gran # Lymph # (Auto) [place] # (Auto) Eos # (Auto) Baso # (Auto) PT INR APTT Sodium Potassium Chloride Carbon Dioxide Anion Gap BUN Creatinine Est GFR ( Amer) Est GFR (Non-Af Amer) Random Glucose Calcium Total Bilirubin AST ALT Alkaline Phosphatase Total Protein Albumin Globulin Albumin/Globulin Ratio Lipase Urine Color Yellow Urine Appearance Clear Urine pH 7.0 Ur Specific [place] <= 1.005 Urine Protein Negative Urine Glucose (UA) Negative Urine Ketones Negative Urine Blood Moderate H Urine Nitrate Negative Urine Bilirubin Negative Urine Urobilinogen 0.2 Ur Leukocyte Esterase Trace H Urine RBC 10 - 15 Urine WBC 2 - 5 Ur Epithelial Cells 4 - 5 Urine Bacteria Mod Blood Type O POSITIVE Blood Type Confirm O POSITIVE Antibody Screen Negative BBK History Checked No verified bt Assessment & Plan - Assessment and Plan (Free Text) Assessment: 78 F admitted to ICU following EGD for GI bleed. Plan: Neuro: -AAOx3, no FND, moving extremities past midline Cardio: -RRR, normotensive, no signs of HD compromise -Maintain MAP>65 -Monitor for S/S, HD compromise Pulm: -No signs of respiratory distress -Faint expiratory wheezes bilaterally c/w underlying COPD -No SOB, cough -Continue to monitor -Consider duo-neb if needed GI: -Keep patient NPO pending GI recs -S/p EGD and repair of bleed -GI following, recs appreciated /Nephro: -BUN/Cr stable -Good urine output -Continue monitoring -Replete electrolytes as needed -Maintain euvolemia Heme: -H/H stable, continue to monitor overnight -No signs of HD compromise -Continue monitoring H/H Case and plan reviewed with my attending Dr. Gerardo Nascimento, DO IM Resident PGY-1 <Jose Carrillo - Last Filed: 03/24/18 18:42> Meds - Medications Medications: Current Medications Albuterol/Ipratropium (Duoneb 3 Mg/0.5 Mg (3 Ml) Ud) 3 ml INH [id number] PRN PRN Reason: Wheezing Furosemide (Lasix) 40 mg PO DAILY [facility] Glipizide (Glucotrol Xl) 5 mg PO BID [facility] Sodium Chloride (Sodium Chloride 0.9%) 1,000 mls @ 75 mls/hr IV .[id number] [facility] Stop: 03/24/18 18:46 Methylprednisolone (Medrol) 4 mg PO DAILY [facility] Last Admin: 03/24/18 14:12 Dose: 4 mg Alphagan P 0.1 % (Ophth (Home Med)) 0 ml BOTHEYES BID [facility] Pantoprazole Sodium (Protonix Inj) 40 mg IVP Q12 [facility] Results - Vital Signs Recent Vital Signs: Last Vital Signs Temp 98.6 F 03/24/18 18:25 Pulse 85 03/24/18 18:25 Resp 18 03/24/18 18:25 BP 151/73 H 03/24/18 18:25 Pulse Ox 99 03/24/18 18:25 - Labs Result Diagrams: 03/24/18 17:55 03/24/18 09:35 Labs: Laboratory Results - last 24 hr 03/24/18 03/24/18 03/24/18 09:35 09:35 09:35 WBC 10.5 RBC 3.58 Hgb 10.6 L D Hct 33.5 L MCV 93.6 D MCH 29.6 MCHC 31.6 RDW 13.0 Plt Count 209 MPV 11.4 H Gran % 65.8 Lymph % (Auto) 15.2 L [place] % (Auto) 6.4 H Eos % (Auto) 12.3 H Baso % (Auto) 0.3 Gran # 6.93 H Lymph # (Auto) 1.6 [place] # (Auto) 0.7 H Eos # (Auto) 1.3 H Baso # (Auto) 0.03 PT 12.0 INR 1.04 APTT 32.0 Sodium 143 Potassium 4.4 Chloride 106 Carbon Dioxide 32 Anion Gap 10 BUN 20 Creatinine 1.1 Est GFR ( Amer) 58 Est GFR (Non-Af Amer) 48 Random Glucose 99 Calcium 8.6 Total Bilirubin 0.4 AST 19 ALT 32 Alkaline Phosphatase 50 Total Protein 6.2 Albumin 3.5 Globulin 2.7 Albumin/Globulin Ratio 1.3 Lipase 159 Urine Color Urine Appearance Urine pH Ur Specific [place] Urine Protein Urine Glucose (UA) Urine Ketones Urine Blood Urine Nitrate Urine Bilirubin Urine Urobilinogen Ur Leukocyte Esterase Urine RBC Urine WBC Ur Epithelial Cells Urine Bacteria Blood Type Blood Type Confirm Antibody Screen Crossmatch BBK History Checked 03/24/18 03/24/18 03/24/18 09:35 11:37 12:25 WBC RBC Hgb Hct MCV MCH MCHC RDW Plt Count MPV Gran % Lymph % (Auto) [place] % (Auto) Eos % (Auto) Baso % (Auto) Gran # Lymph # (Auto) [place] # (Auto) Eos # (Auto) Baso # (Auto) PT INR APTT Sodium Potassium Chloride Carbon Dioxide Anion Gap BUN Creatinine Est GFR ( Amer) Est GFR (Non-Af Amer) Random Glucose Calcium Total Bilirubin AST ALT Alkaline Phosphatase Total Protein Albumin Globulin Albumin/Globulin Ratio Lipase Urine Color Yellow Urine Appearance Clear Urine pH 7.0 Ur Specific [place] <= 1.005 Urine Protein Negative Urine Glucose (UA) Negative Urine Ketones Negative Urine Blood Moderate H Urine Nitrate Negative Urine Bilirubin Negative Urine Urobilinogen 0.2 Ur Leukocyte Esterase Trace H Urine RBC 10 - 15 Urine WBC 2 - 5 Ur Epithelial Cells 4 - 5 Urine Bacteria Mod Blood Type O POSITIVE Blood Type Confirm O POSITIVE Antibody Screen Negative Crossmatch See Detail BBK History Checked No verified bt 03/24/18 17:55 WBC 11.5 H RBC 3.33 L Hgb 10.0 L Hct 31.5 L MCV 94.6 MCH 30.0 MCHC 31.7 RDW 13.2 Plt Count 195 MPV 11.2 H Gran % Lymph % (Auto) [place] % (Auto) Eos % (Auto) Baso % (Auto) Gran # Lymph # (Auto) [place] # (Auto) Eos # (Auto) Baso # (Auto) PT INR APTT Sodium Potassium Chloride Carbon Dioxide Anion Gap BUN Creatinine Est GFR ( Amer) Est GFR (Non-Af Amer) Random Glucose Calcium Total Bilirubin AST ALT Alkaline Phosphatase Total Protein Albumin Globulin Albumin/Globulin Ratio Lipase Urine Color Urine Appearance Urine pH Ur Specific [place] Urine Protein Urine Glucose (UA) Urine Ketones Urine Blood Urine Nitrate Urine Bilirubin Urine Urobilinogen Ur Leukocyte Esterase Urine RBC Urine WBC Ur Epithelial Cells Urine Bacteria Blood Type Blood Type Confirm Antibody Screen Crossmatch BBK History Checked Assessment & Plan - Assessment and Plan (Free Text) Plan: Patient seen and examined with resident, agree with note with following additions/exceptions: Patient is 78yo female with PMhx of COPD, HTN, presented to the ER with bright red blood per rectum, and bloody BMs since 130am. Pt notes multiple episodes of BRBPR. Pt went for EGD, found to have. Currently afebrile, BP stable, comfortable in NAD in PACU HH 10.0, baseline 11-12. GIB Anemia HTN COPD Recommend: - supp o2 as needed, duonebs PRN - panculture, UCx, BCx, Procal - hold BP meds - IVF hydration - maintain 2 large bore PIVs - NPO - serial CBCs - PPI - follow up GI, possible colonoscopy - GI ppx - DVT ppx, SCDs - Admit to MICU
[2018-03-24 18:03] LABS: MEAN CELL VOLUME 94.6 fl (80.0-105.0); MEAN CORPUSCULAR HGB CONC 31.7 g/dl (31.0-37.0); MEAN PLATELET VOLUME 11.2 fl (7.0-11.0); RBC 3.33 10^6/uL (3.5-6.1); RED CELL DISTRIBUTION WIDTH 13.2 % (11.5-14.5); WHITE BLOOD COUNT 11.5 10^3/ul (4.5-11.0)
[2018-03-24 20:53] LABS: HEMOGLOBIN 9.8 g/dL (12.0-16.0); MEAN CELL VOLUME 93.6 fl (80.0-105.0); MEAN CORPUSCULAR HEMOGLOBIN 29.8 pg (25.0-35.0); MEAN CORPUSCULAR HGB CONC 31.8 g/dl (31.0-37.0); MEAN PLATELET VOLUME 10.9 fl (7.0-11.0); RBC 3.29 10^6/uL (3.5-6.1); RED CELL DISTRIBUTION WIDTH 13.2 % (11.5-14.5); WHITE BLOOD COUNT 10.8 10^3/ul (4.5-11.0)
[2018-03-24] MEDS: GlipiZIDE 5 mg SR Tab PO SCH (21:00)
[2018-03-24] MEDS: ALPHAGAN P 0.1% BOTHEYES SCH (21:00)
[2018-03-25] MEDS ORDERED: MethylPREDNISolone 40 mg Vial IVP ONE (04:37)
[2018-03-25] MEDS ORDERED: Albuterol-Ipratrop 3 mg / 0.5 (3 ml) UD IH STA (04:39)
[2018-03-25 05:45] LABS: HEMOGLOBIN 9.4 g/dL (12.0-16.0); MEAN CELL VOLUME 93.5 fl (80.0-105.0); MEAN CORPUSCULAR HEMOGLOBIN 29.2 pg (25.0-35.0); MEAN CORPUSCULAR HGB CONC 31.2 g/dl (31.0-37.0); MEAN PLATELET VOLUME 11.5 fl (7.0-11.0); RBC 3.22 10^6/uL (3.5-6.1); RED CELL DISTRIBUTION WIDTH 13.2 % (11.5-14.5); WHITE BLOOD COUNT 11.4 10^3/ul (4.5-11.0)
[2018-03-25 06:03] LABS: ALB/GLOB RATIO 1.4 (1.1-1.8); ALBUMIN 3.3 g/dL (3.0-4.8); CALCIUM 8.4 mg/dL (8.4-10.5)
--- NOTE | 2018-03-25 09:02 | CARD ---
APPROVED REPORT Date of service: 03/24/2018 EKG Measurement Heart [id number] <Conclusion> Sinus rhythm with premature atrial complexes Left axis deviation Anterior infarct, old Prolonged QTc No change
[2018-03-25] MEDS: ALPHAGAN P 0.1% BOTHEYES SCH ×2 (10:17→17:31)
[2018-03-25] MEDS: GlipiZIDE 5 mg SR Tab PO SCH ×2 (10:20→17:33)
[2018-03-25] MEDS ORDERED: BRIMONIDINE OU SCH (11:15)
[2018-03-25] MEDS ORDERED: BRINZOLAMIDE OU SCH (11:15)
--- NOTE | 2018-03-25 11:21 | CP.PCM.PN ---
<Samantha Guerrero - Last Filed: 03/25/18 11:22> Subjective - Date & Time of Evaluation Date of Evaluation: 03/25/18 Time of Evaluation: 07:15 - Subjective Subjective: PGY5 GI Consult {Pt seen and examined bedside Denies any Abd xiomara, Denies any rectal bleeding, though still notes old blood NPO overnight ROS: 12 point ROS conducted, neg other than above Objective - Vital Signs/Intake and Output Vital Signs (last 24 hours): Temp Pulse Resp BP Pulse Ox 97.8 F 78 22 140/55 L 98 03/25/18 01:06 03/25/18 08:40 03/25/18 08:40 03/25/18 10:20 03/25/18 08:40 Intake and Output: 03/25/18 03/25/18 06:59 18:59 Intake Total 60 Output Total 350 Balance -290 - Medications Medications: Current Medications Albuterol/Ipratropium (Duoneb 3 Mg/0.5 Mg (3 Ml) Ud) 3 ml [id number] Furosemide (Lasix) 40 mg PO DAILY [facility] Last Admin: 03/25/18 10:20 Dose: 40 mg Glipizide (Glucotrol Xl) 5 mg PO BID [facility] Last Admin: 03/25/18 10:20 Dose: 5 mg Home Med (Home Med) 1 unit OU DAILY [facility] Methylprednisolone (Medrol) 4 mg PO DAILY [facility] Last Admin: 03/25/18 10:20 Dose: 4 mg Alphagan P 0.1 % (Ophth (Home Med)) 0 ml BOTHEYES BID [facility] Last Admin: 03/25/18 10:17 Dose: Not Given Pantoprazole Sodium (Protonix Inj) 40 mg IVP Q12 [facility] Last Admin: 03/25/18 10:20 Dose: 40 mg - Labs Labs: 03/25/18 05:00 03/25/18 05:00 PT 12.0 SECONDS (9.4-12.5) 03/24/18 09:35 INR 1.04 03/24/18 09:35 APTT 32.0 Seconds (25.1-36.5) 03/24/18 09:35 - Constitutional Appears: Well, No Acute Distress - Head Exam Head Exam: ATRAUMATIC, NORMOCEPHALIC - Eye Exam Eye Exam: Normal appearance - ENT Exam ENT Exam: Mucous Membranes Moist, Normal Exam - Neck Exam Neck Exam: Normal Inspection - Respiratory Exam Respiratory Exam: Clear to Ausculation Bilateral, NORMAL BREATHING PATTERN. absent: Wheezes, Respiratory Distress - Cardiovascular Exam Cardiovascular Exam: REGULAR RHYTHM, +S1, +S2 - GI/Abdominal Exam GI & Abdominal Exam: Soft, Normal Bowel Sounds. absent: Guarding, Rigid, Tenderness, Organomegaly - Extremities Exam Extremities Exam: absent: Joint Swelling, Pedal Edema - Neurological Exam Neurological Exam: Alert, Awake, Oriented x3 - Psychiatric Exam Psychiatric exam: Normal Affect, Normal Mood - Skin Skin Exam: Dry, Intact, Normal Color, Warm Assessment and Plan - Assessment and Plan (Free Text) Assessment: #Acute blood loss anemia due to GI bleed, likely lower source; DDx: diverticular vs AVM, vs Malignancy #Diverticulosis # hx of polyps #Chronic NSAID use #COPD - recently placed on steroid #RA #HTN #T2DM PLAN: -Likely lower GI, bleed must r/o upper GI bleed in setting of chronic NSAID use. -Monitor Hb closely, transfuse for Hb less than 7. -Hold NSAIDs, anticoagulation -Continue IV PPI daily -will need colonoscopy, possibly this admission -if pt has another episode of bleeding recommend bleeding scan -can strat clears today -will need Pulmonary optimization D/W Dr. Magallanes <Desirae Magallanes V - Last Filed: 03/25/18 18:10> Objective - Vital Signs/Intake and Output Vital Signs (last 24 hours): Temp Pulse Resp BP Pulse Ox 97.8 F 68 18 132/68 94 L 03/25/18 01:06 03/25/18 14:00 03/25/18 14:00 03/25/18 14:00 03/25/18 14:00 Intake and Output: 03/25/18 03/25/18 06:59 18:59 Intake Total 60 Output Total 350 Balance -290 - Medications Medications: Current Medications Albuterol/Ipratropium (Duoneb 3 Mg/0.5 Mg (3 Ml) Ud) 3 ml [facility]H [id number] Last Admin: 03/25/18 12:00 Dose: 3 ml Furosemide (Lasix) 40 mg PO DAILY [facility] Last Admin: 03/25/18 10:20 Dose: 40 mg Glipizide (Glucotrol Xl) 5 mg PO BID [facility] Last Admin: 03/25/18 17:33 Dose: 5 mg Home Med (Home Med) 1 unit OU [facility] Methylprednisolone (Medrol) 4 mg PO DAILY [facility] Last Admin: 03/25/18 10:20 Dose: 4 mg Alphagan P 0.1 % (Ophth (Home Med)) 0 ml [facility] Last Admin: 03/25/18 17:31 Dose: Not Given Pantoprazole Sodium (Protonix Inj) 40 mg IVP Q12 [facility] Last Admin: 03/25/18 10:20 Dose: 40 mg - Labs Labs: 03/25/18 12:00 03/25/18 05:00 PT 12.0 SECONDS (9.4-12.5) 03/24/18 09:35 INR 1.04 03/24/18 09:35 APTT 32.0 Seconds (25.1-36.5) 03/24/18 09:35 Attending/Attestation - Attestation I have personally seen and examined this patient.: Yes I have fully participated in the care of the patient.: Yes I have reviewed all pertinent clinical information, including history, physical exam and plan: Yes Notes (Text): This is an addendum to GI progress report dictated by the GI Fellow.The patient was seen and examined earlier. Medical records, lab studies, imagings were reviewed. Last 24 hours events reviewed. Agreed with the above treatment plan as outlined in GI Fellow 's notes with the addition of the following No further episodes of bleeding per rectum HCT stable Status post EGD Gastric erosions EG junction ulcer Schatzki ring Start on clear liquid diet if active bleeding would consider bleeding scan Would need optimization of respiratory status History of COPD Continue PPI Followup hemoglobin/HCT 03/25/18 18:06
[2018-03-25] MEDS: Albuterol-Ipratrop 3 mg / 0.5 (3 ml) UD INH SCH ×2 (12:00→21:01)
--- NOTE | 2018-03-25 12:06 | PN ---
DATE: 03/25/2018 SUBJECTIVE: The patient is a 78-year-old female who was admitted to the Intensive Care Unit yesterday with acute GI bleed. The patient had two bright red bloody bowel movements while at home. After the second bowel movement, she became concerned, presented to the emergency room and is admitted. The patient is known to have a past medical history positive for COPD, chronic bronchitis and non-insulin dependent diabetes mellitus. She was evaluated by Dr. Magallanes, the neurology specialist. She was taken to the endoscopy suite where her esophagogastroduodenoscopy was performed. Dr. Magallanes was concerned that at home, the patient was taking an aspirin a day as well as diclofenac, a nonsteroidal anti-inflammatory. On endoscopy, she was found to have a shallow esophageal ulcer, but no obvious source of bleeding. The patient tolerated the procedure well. When seen today, she is awake, alert and oriented. She has no complaints. Her lungs are clear anteriorly. Heart is regular. Abdomen is soft and nontender. CAT scan yesterday showed multiple diverticuli in the distal descending colon and sigmoid colon. There is no tenderness on palpation over the lower quadrants. Extremities are free of cyanosis, clubbing or edema. So the patient will be transferred out of the Intensive Care Unit today to a medical floor. We will continue to follow the patient closely. This morning's laboratory shows the white blood cell count to be 11.4, hemoglobin 9.4, hematocrit 30.1. Sodium is 141, potassium 4.6, blood urea nitrogen 21, creatinine 1.1. She is O+ve type blood. Her blood pressure is 150/82 and heart rate is 78. So, the patient will be followed closely on the medical floor, reevaluated in the morning. Colonoscopy will be performed perhaps later on today or on Tuesday. Taj York MD
--- NOTE | 2018-03-25 12:10 | NM ---
Date of service: 03/24/2018 PROCEDURE: Nuclear medicine gastrointestinal bleeding scan. HISTORY: active GI bleed. EGD normal COMPARISON: None available. TECHNIQUE: 4ccof patient blood was withdrawn and mixed with 30mCi of technetium ultra tagged. Images of the abdomen and pelvis were obtained in the anterior and posterior projection at 1 min intervals over a period of 45 min. FINDINGS: No abnormal extravasation of tracer was observed throughout the exam to indicate active bleeding within or outside the gastrointestinal tract. Physiologic activity was seen in the heart, liver, spleen and blood vessels. IMPRESSION: No evidence of active gastrointestinal bleeding. Concordant results (preliminary interpretation) provided by [facility]. Procedure Completed: 01:06 Preliminary Report: Dictated and Authenticated: 01:40. Final Interpretation: 12:08
[2018-03-25 12:21] LABS: HEMOGLOBIN 9.6 g/dL (12.0-16.0); MEAN CELL VOLUME 93.5 fl (80.0-105.0); MEAN CORPUSCULAR HEMOGLOBIN 29.9 pg (25.0-35.0); RBC 3.21 10^6/uL (3.5-6.1); RED CELL DISTRIBUTION WIDTH 13.2 % (11.5-14.5); WHITE BLOOD COUNT 13.3 10^3/ul (4.5-11.0)
[2018-03-25 21:05] LABS: MEAN CELL VOLUME 93.5 fl (80.0-105.0); MEAN CORPUSCULAR HEMOGLOBIN 29.6 pg (25.0-35.0); MEAN CORPUSCULAR HGB CONC 31.6 g/dl (31.0-37.0); RBC 3.38 10^6/uL (3.5-6.1); RED CELL DISTRIBUTION WIDTH 13.3 % (11.5-14.5); WHITE BLOOD COUNT 15.5 10^3/ul (4.5-11.0)
[2018-03-26] MEDS: Albuterol-Ipratrop 3 mg / 0.5 (3 ml) UD INH SCH ×4 (02:29→20:05)
[2018-03-26] MEDS ORDERED: BRIMONIDINE OU SCH (10:00)
[2018-03-26] MEDS ORDERED: BRINZOLAMIDE OU SCH (10:00)
[2018-03-26] MEDS: GlipiZIDE 5 mg SR Tab PO SCH ×2 (10:01→17:13)
[2018-03-26] MEDS: BRIMONIDINE OU SCH (12:02)
[2018-03-26] MEDS: BRINZOLAMIDE OU SCH (12:02)
--- NOTE | 2018-03-26 14:24 | PN ---
DATE: 03/26/2018 DAILY PROGRESS NOTE The patient is a 78-year-old female who was admitted to the Intensive Care Unit on 03/24/2018 with an acute GI bleed, bright red blood per rectum. She suffered two bouts of this at home prior to presentation to the ER when she was admitted. The patient is known to have a past medical history positive for COPD, chronic bronchitis and [id number] diabetes mellitus. She was evaluated by Dr. Magallanes, the waredresser, who took the patient to the Endoscopy suite and esophagogastroduodenoscopy was performed, the results show the patient had a shallow esophageal ulcer, some gastritis but no obvious source of bleeding. I spoke to Dr. Magallanes at length concerning the patient, there is a scheduling problem for colonoscopy; however, the patient will be prepped for the colonoscopy tomorrow and undergo the procedure on Tuesday. When seen, the patient was lying in bed awake, alert and oriented. She denies any further bright red blood per rectum. Her lungs are clear. Heart is regular. Abdomen is soft and nontender. She does admit to slightly bloody toilet tissue when wiping herself after urinating. She is afebrile at 98.1 degrees Fahrenheit, blood pressure is 108/57 and heart rate is 68 beats per minute. At this time, we are allowing the patient clear liquid diet. She will be prepped tomorrow for her colonoscopy on Tuesday. Taj York MD
--- NOTE | 2018-03-26 15:45 | CP.PCM.PN ---
Addendum entered and electronically signed by Samantha Guerrero DO 03/26/18 15:50: correction: will assess respiratory status tomorrow for colonoscopy on Original Note: <Samantha Guerrero - Last Filed: 03/26/18 15:45> Subjective - Date & Time of Evaluation Date of Evaluation: 03/26/18 Time of Evaluation: 09:00 - Subjective Subjective: PGY5 GI Follow-up Pt seen and examined bediside No overnight events tolerating tube feeds +BM ROS: 12 point ROS conducted, neg other than above Objective - Vital Signs/Intake and Output Vital Signs (last 24 hours): Temp Pulse Resp BP Pulse Ox 97.9 F 66 18 111/59 L 95 03/26/18 14:00 03/26/18 14:00 03/26/18 14:00 03/26/18 14:00 03/26/18 14:00 - Medications Medications: Current Medications Albuterol/Ipratropium (Duoneb 3 Mg/0.5 Mg (3 Ml) Ud) 3 ml INH [id number] Last Admin: 03/26/18 07:32 Dose: 3 ml Furosemide (Lasix) 40 mg PO DAILY [facility] Last Admin: 03/26/18 12:02 Dose: 40 mg Glipizide (Glucotrol Xl) 5 mg PO BID [facility] Last Admin: 03/26/18 10:01 Dose: 5 mg Home Med (Home Med) 1 unit OU DAILY [facility] Last Admin: 03/26/18 12:02 Dose: 1 unit Methylprednisolone (Medrol) 4 mg PO DAILY [facility] Last Admin: 03/26/18 10:00 Dose: 4 mg Pantoprazole Sodium (Protonix Inj) 40 mg IVP Q12 [facility] Last Admin: 03/26/18 10:59 Dose: 40 mg - Labs Labs: 03/25/18 21:00 03/25/18 05:00 PT 12.0 SECONDS (9.4-12.5) 03/24/18 09:35 INR 1.04 03/24/18 09:35 APTT 32.0 Seconds (25.1-36.5) 03/24/18 09:35 - Constitutional Appears: Well, No Acute Distress - Head Exam Head Exam: ATRAUMATIC, NORMOCEPHALIC - Eye Exam Eye Exam: Normal appearance - ENT Exam ENT Exam: Mucous Membranes Moist, Normal Exam - Respiratory Exam Respiratory Exam: Clear to Ausculation Bilateral, NORMAL BREATHING PATTERN. absent: Rales, Rhonchi, Wheezes, Respiratory Distress - Cardiovascular Exam Cardiovascular Exam: REGULAR RHYTHM, +S1, +S2 - GI/Abdominal Exam GI & Abdominal Exam: Soft, Normal Bowel Sounds. absent: Firm, Guarding, Rigid, Tenderness, Mass, Organomegaly, Rebound - Extremities Exam Extremities Exam: absent: Joint Swelling, Pedal Edema - Neurological Exam Neurological Exam: Alert, Awake, Oriented x3 - Psychiatric Exam Psychiatric exam: Normal Affect, Normal Mood - Skin Skin Exam: Dry, Intact, Normal Color, Warm Assessment and Plan - Assessment and Plan (Free Text) Assessment: Assessment: #Acute blood loss anemia due to GI bleed, likely lower source; DDx: diverticular vs AVM, vs Malignancy #Diverticulosis # hx of polyps #Chronic NSAID use #COPD - recently placed on steroid #RA #HTN #T2DM PLAN: -Likely lower GI, bleed must r/o upper GI bleed in setting of chronic NSAID use. -Monitor Hb closely, transfuse for Hb less than 7. -Hold NSAIDs, anticoagulation -will need colonoscopy -recommend colonoscopy as an oupt, due to recent respiratory status -if pt has another episode of bleeding recommend bleeding scan -advance diet as tolerated -will need Pulmonary optimization seen and D/W Dr. Magallanes <Desirae Magallanes V - Last Filed: 03/26/18 23:43> Objective - Vital Signs/Intake and Output Vital Signs (last 24 hours): Temp Pulse Resp BP Pulse Ox 97.9 F 66 18 111/59 L 95 03/26/18 14:00 03/26/18 14:00 03/26/18 14:00 03/26/18 14:00 03/26/18 14:00 - Medications Medications: Current Medications Albuterol/Ipratropium (Duoneb 3 Mg/0.5 Mg (3 Ml) Ud) 3 ml INH [id number] [facility] Last Admin: 03/26/18 20:05 Dose: 3 ml Furosemide (Lasix) 40 mg PO DAILY [facility] Last Admin: 03/26/18 12:02 Dose: 40 mg Glipizide (Glucotrol Xl) 5 mg PO BID [facility] Last Admin: 03/26/18 17:13 Dose: 5 mg Home Med (Home Med) 1 unit OU DAILY [facility] Last Admin: 03/26/18 12:02 Dose: 1 unit Methylprednisolone (Medrol) 4 mg PO DAILY [facility] Last Admin: 03/26/18 10:00 Dose: 4 mg Pantoprazole Sodium (Protonix Inj) 40 mg IVP Q12 [facility] Last Admin: 03/26/18 10:59 Dose: 40 mg - Labs Labs: 03/25/18 21:00 03/25/18 05:00 PT 12.0 SECONDS (9.4-12.5) 03/24/18 09:35 INR 1.04 03/24/18 09:35 APTT 32.0 Seconds (25.1-36.5) 03/24/18 09:35 Attending/Attestation - Attestation I have personally seen and examined this patient.: Yes I have fully participated in the care of the patient.: Yes I have reviewed all pertinent clinical information, including history, physical exam and plan: Yes Notes (Text): This is an addendum to GI progress report dictated by the GI Fellow.The patient was seen and examined earlier. Medical records, lab studies, imagings were reviewed. Last 24 hours events reviewed. Agreed with the above treatment plan as outlined in GI Fellow 's notes with the addition of the following No further episode of bleeding per rectum No complaint of abdominal pain On examination abdomen soft non-tender Discussed with PCP Patient will be scheduled for colonoscopy after further optimization of the pulmonary status 03/26/18 23:41
[2018-03-27] MEDS: Albuterol-Ipratrop 3 mg / 0.5 (3 ml) UD INH SCH ×4 (04:58→20:50)
[2018-03-27] MEDS ORDERED: Peg-Electrolyte Oral Soln 4L (Golytely) PO ONE ×3 (06:00→19:07)
[2018-03-27 08:26] LABS: BASO # 0.02 K/mm3 (0.0-2.0); BASO % 0.2 % (0.0-3.0); EOS % 10.3 % (1.5-5.0); GRAN # 5.6 (1.4-6.5); GRAN % 57.1 % (50.0-68.0); HEMOGLOBIN 9.7 g/dL (12.0-16.0); LYMPH # 2.5 (1.2-3.4); LYMPH % 25.9 % (22.0-35.0); MEAN CELL VOLUME 94.2 fl (80.0-105.0); MEAN CORPUSCULAR HEMOGLOBIN 29.6 pg (25.0-35.0); MEAN CORPUSCULAR HGB CONC 31.4 g/dl (31.0-37.0); MEAN PLATELET VOLUME 11.5 fl (7.0-11.0); MONO # 0.6 (0.1-0.6); MONO % 6.5 % (1.0-6.0); RBC 3.28 10^6/uL (3.5-6.1); RED CELL DISTRIBUTION WIDTH 13.5 % (11.5-14.5); WHITE BLOOD COUNT 9.8 10^3/ul (4.5-11.0)
[2018-03-27 08:40] LABS: ALB/GLOB RATIO 1.3 (1.1-1.8); ALBUMIN 3.8 g/dL (3.0-4.8); CALCIUM 8.8 mg/dL (8.4-10.5)
--- NOTE | 2018-03-27 08:44 | CON ---
DATE: 03/27/2018 PULMONARY CONSULTATION REASON FOR PULMONARY CONSULTATION: Chronic obstructive pulmonary disease. REFERRING PHYSICIAN: Dr. York HISTORY OF PRESENT ILLNESS: History is obtained via extensive discussion with the nurse. I have also reviewed the chart at length, and discussed the case with the patient at length. The patient is a 78-year-old female, with past medical history significant for chronic obstructive pulmonary disease, chronic bronchitis, obstructive sleep apnea (extremely noncompliant; has not used her machine for at least 4-5 years), diabetes mellitus, who presented to [facility] - originally on 03/24/2018 - with rectal bleeding. The patient was thus admitted for additional evaluation. Again, I did discuss the case with the patient and nurse at length. The patient is not short of breath at rest. She does have occasional chronic dyspnea on exertion. She also has a chronic cough with congestion - primarily in the mornings. She does not produce significant sputum. There is no history of chest pain, coughing up of blood, or chest pain - made worse with deep respirations. There is no history of temperatures, chills or infectious exposure. There is no history of night sweats, weight loss or appetite change prior to the above events. No history of leg or calf pains. No history of syncope or diaphoresis. No history of recent travel or trauma. REVIEW OF SYSTEMS: No history of nausea or vomiting. No acute urinary symptoms. No new neurologic or musculoskeletal complaints. Rest of the review of systems is negative. ALLERGIES: TO PENICILLIN AND LYRICA. SOCIAL HISTORY: Positive for tobacco and negative for alcohol. FAMILY HISTORY: No inheritable diseases. HOME MEDICATIONS: Include Glucophage, Lasix, glipizide, Medrol and DuoNebs. PHYSICAL EXAMINATION: GENERAL: The patient appears very comfortable this morning. She is not short of breath at rest. VITAL SIGNS: (Last noted in the computer): Temperature is 98, pulse 68, respirations 18, blood pressure 110/72. Oxygen saturation on room air is 95%. HEENT: Normocephalic, atraumatic. No JVD. CARDIOVASCULAR: Systolic ejection murmur at the lower left sternal border. No S3 gallop. LUNGS: Very minimal rhonchi. No wheezing. EXTREMITIES: No clubbing, cyanosis or edema. Calves are nontender to palpation. GI: Abdomen is soft, nontender and nondistended. Bowel sounds are positive. SKIN: No acute rash. NEUROLOGIC: Exam limited at the present time. PERTINENT LABORATORY DATA: Pertinent laboratory data: Chest x-ray was done on 03/24/2018 and reviewed. There is no active disease noted. CBC: White count 15.5K, hemoglobin 10, hematocrit 31.6, platelets of 232,000. Complete metabolic profile: Glucose 153. Rest of the metabolic profile is within normal limits. IMPRESSION: 1. Rectal bleeding. 2. Anemia. 3. Chronic obstructive pulmonary disease. 4. Obstructive sleep apnea. 5. Diabetes mellitus. PLAN: Again, I did discuss the case with the nurse at length. I have also reviewed the chart at length, and discussed case with the patient at length. The patient presented to [facility] - originally on 03/24/2018 - with rectal bleeding. I did review the chest x-ray as above. The chest x-ray shows no new or significant changes. Upon extensive questioning, the patient offers minimal pulmonary symptoms - most of which are chronic. On physical exam, there is no significant bronchospasm noted. In addition, the oxygen saturation on room air is 95%. The patient is now on DuoNebs and low-dose Medrol. I will add inhaled steroids for the time being. Input by GI is noted. The patient is for colonoscopy - hopefully tomorrow. Clinical status of the patient appears improved - compared to her initial status. Additional pulmonary intervention will be based on the clinical status of the patient. I will discuss the above with Dr. York. Thank you very much for this pulmonary consultation. Gonsalo Lawrence MD [facility]
--- NOTE | 2018-03-27 09:07 | PN ---
DATE: 03/25/2018 LAB SCIENTIST NOTE LOCATION: At [facility]. SUBJECTIVE: The patient is resting in bed, awake and alert, has no complaints of abdominal pain. Hemodynamically stable. No fever, chills, nausea or vomiting. No blood per rectum. The patient is very comfortable this morning. PHYSICAL EXAMINATION: VITAL SIGNS: Physical exam note that her temperature is 97.8, pulse is 68, respirations are 14 and BP is 126/53, O2 saturation is 100%. HEENT: Head is atraumatic, normocephalic. Eyes reactive to light. Ear, nose and throat seemed to be within normal limits. NECK: Supple. No JVD. No thyroid enlargement. No lymph nodes. HEART: Has regular rate and rhythm. Normal S1 and S2. LUNGS: Reveal good breath sounds bilaterally. ABDOMEN: Soft. Decreased bowel sounds. GENITALIA AND RECTAL: Deferred. MUSCULOSKELETAL: No joint deformities. EXTREMITIES: Reveal trace lower extremity edema. NEUROLOGICAL: She seemed to be grossly intact. LABORATORY DATA: As far as her laboratories are concerned, her white count is 11.4, hemoglobin is 9.4, hematocrit is 30.1 with platelets of 205,000. Her sodium is 141, potassium 4.6, chloride 106, CO2 of 28 with a BUN of 21, creatinine of 1.1 and a glucose of 153. IMPRESSION: As far as my impression, this patient has lower gastrointestinal bleed, which seems to be stable at this time, hemoglobin is 9.4. She has history of chronic obstructive pulmonary disease as well as diabetes. PLAN: As far as our plan, the patient has been consulted by GI and had EGD. Colonoscopy will be scheduled. We will follow her hemoglobin closely and we will continue with DuoNeb as a bronchodilator. The patient is on Glucotrol as well as Lasix and Solu-Medrol. She is getting Protonix. We will continue to treat aggressively and follow closely along with the other consultants and the primary care doctor. Mauri Childress MD
--- NOTE | 2018-03-27 09:49 | CP.PCM.PN ---
<ViraljyotiMorteza lewis - Last Filed: 03/27/18 14:46> Subjective - Date & Time of Evaluation Date of Evaluation: 03/27/18 Time of Evaluation: 09:43 - Subjective Subjective: Tito Levi PGY2 IM resident - GI Progress Note Patient seen and examined this AM. She reports bloody bowel movement overnight. She denies dizziness, shortness of breath, abdominal pain, nausea, vomiting, hematemesis. She feels better than from admission. Objective - Vital Signs/Intake and Output Vital Signs (last 24 hours): Temp Pulse Resp BP Pulse Ox 98.4 F 73 18 142/66 97 03/27/18 06:00 03/27/18 06:00 03/27/18 06:00 03/27/18 06:00 03/27/18 09:31 - Medications Medications: Current Medications Albuterol/Ipratropium (Duoneb 3 Mg/0.5 Mg (3 Ml) Ud) 3 ml INH [id number] [facility] Last Admin: 03/27/18 08:33 Dose: 3 ml Budesonide (Pulmicort Respules) 0.5 mg IH [id number] [facility] Furosemide (Lasix) 40 mg PO DAILY [facility] Last Admin: 03/26/18 12:02 Dose: 40 mg Glipizide (Glucotrol Xl) 5 mg PO BID [facility] Last Admin: 03/26/18 17:13 Dose: 5 mg Home Med (Home Med) 1 unit OU DAILY [facility] Last Admin: 03/26/18 12:02 Dose: 1 unit Methylprednisolone (Medrol) 4 mg PO DAILY [facility] Last Admin: 03/26/18 10:00 Dose: 4 mg Pantoprazole Sodium (Protonix Inj) 40 mg IVP Q12 [facility] Last Admin: 03/27/18 05:14 Dose: Not Given - Labs Labs: 03/27/18 07:45 03/27/18 07:45 PT 12.0 SECONDS (9.4-12.5) 03/24/18 09:35 INR 1.04 03/24/18 09:35 APTT 32.0 Seconds (25.1-36.5) 03/24/18 09:35 - Constitutional Appears: No Acute Distress - Head Exam Head Exam: ATRAUMATIC, NORMOCEPHALIC - Eye Exam Eye Exam: EOMI, PERRL Additional comments: conjunctival pallor - ENT Exam ENT Exam: Mucous Membranes Moist - Neck Exam Neck Exam: Full ROM - Respiratory Exam Respiratory Exam: Clear to Ausculation Bilateral, NORMAL BREATHING PATTERN - GI/Abdominal Exam GI & Abdominal Exam: Soft, Normal Bowel Sounds. absent: Tenderness - Extremities Exam Extremities Exam: Full ROM. absent: Calf Tenderness - Neurological Exam Neurological Exam: Alert, Awake, Normal Gait, Oriented x3 - Psychiatric Exam Psychiatric exam: Normal Affect, Normal Mood - Skin Skin Exam: Dry, Intact Assessment and Plan - Assessment and Plan (Free Text) Assessment: 78 year old female with past medical history of COPD, HTN, hx of diverticular disease who presented with rectal bleeding on admission s/p EGD showing no signs of active bleeding. Plan: Acute blood loss 2/2 GI bleed Upper vs. Lower GI bleed Diverticulosis hx of polyps Chronic NSAID use COPD Hx Rheumatoid Arthritis HTN DM2 - Differential Dx" Diverticular vs. AVM vs. NSAID usage vs. Malignancy - Monitor H/H, CBC stable, goal Hgb >7, transfuse as necessary - Holding NSAIDS, AC - Advance diet as tolerated - Needing pulmonary optimization - Monitor for recurrent bleeding, if occurs consider bleeding scan - Colonoscopy tentatively for tuesday - Further recommendations per Dr. Magallanes <Desirae Magallanes V - Last Filed: 03/27/18 23:07> Objective - Vital Signs/Intake and Output Vital Signs (last 24 hours): Temp Pulse Resp BP Pulse Ox 98 F 51 L 18 115/54 L 98 03/27/18 14:00 03/27/18 14:00 03/27/18 14:00 03/27/18 14:00 03/27/18 14:00 - Medications Medications: Current Medications Albuterol/Ipratropium (Duoneb 3 Mg/0.5 Mg (3 Ml) Ud) 3 ml INH [id number] [facility] Last Admin: 03/27/18 20:50 Dose: 3 ml Budesonide (Pulmicort Respules) 0.5 mg IH [id number] [facility] Last Admin: 03/27/18 20:51 Dose: 0.5 mg Furosemide (Lasix) 40 mg PO DAILY [facility] Last Admin: 03/27/18 10:46 Dose: 40 mg Glipizide (Glucotrol Xl) 5 mg PO BID [facility] Last Admin: 03/27/18 17:31 Dose: 5 mg Home Med (Home Med) 1 unit OU DAILY [facility] Last Admin: 03/27/18 10:52 Dose: 1 unit Methylprednisolone (Medrol) 4 mg PO DAILY [facility] Last Admin: 03/27/18 10:46 Dose: 4 mg Pantoprazole Sodium (Protonix Inj) 40 mg IVP Q12 [facility] Last Admin: 03/27/18 10:47 Dose: 40 mg - Labs Labs: 03/27/18 07:45 03/27/18 07:45 PT 12.0 SECONDS (9.4-12.5) 03/24/18 09:35 INR 1.04 03/24/18 09:35 APTT 32.0 Seconds (25.1-36.5) 03/24/18 09:35 Attending/Attestation - Attestation I have personally seen and examined this patient.: Yes I have fully participated in the care of the patient.: Yes I have reviewed all pertinent clinical information, including history, physical exam and plan: Yes Notes (Text): This is an addendum to GI followup report dictated by the Reeler Operator. The patient was seen and evaluated earlier. Medical records, lab studies, imagings were reviewed. Last 24 hours events reviewed. Agreed with the above treatment plan as outlined in Reeler Operator 's notes with the addition of the following No further episodes of bleeding On clear liquid diet Will start Golytely split dose prep for colonoscopy in AM Patient is scheduled for colonoscopy Followup 03/27/18 23:06
[2018-03-27] MEDS: GlipiZIDE 5 mg SR Tab PO SCH ×2 (10:45→17:31)
[2018-03-27] MEDS: BRINZOLAMIDE OU SCH (10:52)
[2018-03-27] MEDS: BRIMONIDINE OU SCH (10:52)
--- NOTE | 2018-03-27 11:24 | PN ---
DATE: 03/27/2018 DAILY PROGRESS NOTE SUBJECTIVE: The patient is a 78-year-old female, who was admitted to the [facility] Intensive Care Unit on 03/24/2018 with an acute GI bleed. She noted bright red blood per rectum x2 bouts prior to presentation to the emergency room. She is known to have a past medical history positive for COPD, chronic bronchitis, noninsulin-dependent diabetes mellitus. During the hospital stay, she underwent esophagogastroduodenoscopy with Dr. Magallanes, the bobj developer. A small shallow esophageal ulcer was noted with some gastritis, but no obvious source of bleeding. When seen today, the patient is feeling well. She had no complaints. She did admit to another bloody bowel movement earlier this morning. I discussed the case with Dr. Magallanes yesterday. Today, we are beginning the prep for colonoscopy tomorrow. CAT scan was done and it showed multiple diverticuli of the distal descending colon and sigmoid colon. I have asked Dr. Lawrence to consult on the case because of her chronic pulmonary status and COPD. His consultation is noted and appreciated. This morning, the patient did have some expiratory wheezes bilaterally when auscultated anteriorly. Her heart is regular. Abdomen is soft and nontender with no organomegaly. Extremities are free of cyanosis, clubbing or edema. This morning's blood pressure was 110/72, heart rate of 68. So, and added inhaled steroid order was placed by Dr. Lawrence and also she is receiving Medrol 4 mg p.o. daily as well as her DuoNeb nebulizer treatments. As above, the patient is beginning the prep for colonoscopy tomorrow. Taj York MD
[2018-03-27] MEDS: Budesonide 0.5 mg/2 ml Inhal Susp UD IH SCH (20:51)
[2018-03-28] MEDS: Albuterol-Ipratrop 3 mg / 0.5 (3 ml) UD INH SCH ×4 (04:39→19:33)
[2018-03-28] MEDS: Budesonide 0.5 mg/2 ml Inhal Susp UD IH SCH ×2 (07:25→19:33)
--- NOTE | 2018-03-28 07:47 | PN ---
DATE: 03/28/2018 PULMONARY NOTE SUBJECTIVE: The patient appears very comfortable this morning. She is not short of breath at rest. PHYSICAL EXAMINATION: VITAL SIGNS: (Last noted in the computer): Temperature is 98, pulse 51, respirations 18, blood pressure 115/54. Oxygen saturation on room air is 98%. HEENT: Normocephalic, atraumatic. No JVD. CARDIOVASCULAR: Systolic ejection murmur at the lower left sternal border. No S3 gallop. LUNGS: Very minimal/less rhonchi. No wheezing. EXTREMITIES: No clubbing, cyanosis or edema. Calves are nontender to palpation. GI: Abdomen is soft, nontender and nondistended. Bowel sounds are positive. SKIN: No acute rash. NEUROLOGIC: Limited at the present time. IMPRESSION: 1. Rectal bleeding. 2. Anemia. 3. Chronic obstructive pulmonary disease. 4. Obstructive sleep apnea. 5. Diabetes mellitus. PLAN: The patient appears very comfortable this morning. She is not short of breath at rest. She does state to feeling much better overall. I did discuss the case with the night nurse at length. The night nurse stated that the patient had a very good night. On physical exam, there is no significant bronchospasm noted. In addition, the oxygen saturation on room air is now 98%. I will continue with the current nebulizer treatments and low-dose oral steroids for now. Inputs by Internal Medicine and GI are also noted. The clinical status of the patient is definitely improved - compared to her initial presentation. The patient is for probable colonoscopy later today. Any procedure involving anesthesia does pose a risk to this patient - given her above history. However, at this point in time, there are no absolute pulmonary contraindications to colonoscopy this morning. I will continue to follow the patient closely with you. I will discuss the above with the attending physician. Gonsalo Lawrence MD LORRIE
[2018-03-28] MEDS: BRIMONIDINE OU SCH (09:35)
[2018-03-28] MEDS: BRINZOLAMIDE OU SCH (09:35)
[2018-03-28] MEDS: GlipiZIDE 5 mg SR Tab PO SCH ×2 (09:35→18:55)
[2018-03-28 11:05] LABS: HEMOGLOBIN 9.7 g/dL (12.0-16.0); MEAN CELL VOLUME 93.2 fl (80.0-105.0); MEAN CORPUSCULAR HGB CONC 32.2 g/dl (31.0-37.0); MEAN PLATELET VOLUME 11.3 fl (7.0-11.0); RBC 3.23 10^6/uL (3.5-6.1); RED CELL DISTRIBUTION WIDTH 13.5 % (11.5-14.5); WHITE BLOOD COUNT 10.1 10^3/ul (4.5-11.0)
[2018-03-28] MEDS ORDERED: Propofol 10 mg/ml Inj (20 ML) ONE (13:25)
[2018-03-28] MEDS ORDERED: Sodium Chloride 0.9% 1,000 ML IV SCH (14:45)
[2018-03-28] MEDS ORDERED: Peg-Electrolyte Oral Soln 4L (Golytely) PO ONE (17:34)
--- NOTE | 2018-03-28 22:59 | PN ---
DATE: 03/28/2018 SUBJECTIVE: I came to see the patient this Tuesday mid in room 566, bed 3. She was down in Endoscopy. Later in the day, I spoke to Dr. Magallanes. Her endoscopy was difficult to continue because of a poor prep with quite a bit of stool retained in the colon. She also desatted her O2 making it prudent to discontinue the procedure. He will prep the patient again tonight and reattempt the colonoscopy tomorrow. Rickey York MD
[2018-03-29] MEDS: Albuterol-Ipratrop 3 mg / 0.5 (3 ml) UD INH SCH ×4 (01:29→19:16)
[2018-03-29] MEDS ORDERED: Peg-Electrolyte Oral Soln 4L (Golytely) PO ONE (06:00)
--- NOTE | 2018-03-29 08:05 | PN ---
DATE: 03/29/2018 PULMONARY NOTE SUBJECTIVE: The patient appears very comfortable this morning. She is not short of breath at rest. OBJECTIVE: VITAL SIGNS (last noted in the computer): Temperature is 98.9, pulse 73, respirations 18, blood pressure 133/59. Oxygen saturation on room air is 95%. HEENT: Normocephalic, atraumatic. No JVD. CARDIOVASCULAR: Systolic ejection murmur at the lower left sternal border. No S3 gallop. LUNGS: Very minimal/much less rhonchi. No wheezing. EXTREMITIES: No clubbing, cyanosis or edema. Calves are nontender to palpation. GI: Abdomen is soft, nontender and nondistended. Bowel sounds are positive. SKIN: No acute rash. NEUROLOGIC: Exam limited at the present time. IMPRESSION: 1. Rectal bleeding. 2. Anemia. 3. Chronic obstructive pulmonary disease. 4. Obstructive sleep apnea. 5. Diabetes mellitus. PLAN: The patient appears very comfortable this morning. She is not short of breath at rest. She does state to feeling much better overall. She also state to "much better mornings" since being placed on the inhaled steroids. I did discuss the case with the night nurse at length. The night nurse stated that the patient had a very good night. On physical exam, her bronchospasm continues to resolve. In addition, there is no significant alveolar-arterial gradient. I will continue with the current nebulizer treatments and inhaled steroids for now. The patient is also on very low-dose Medrol. GI evaluation is ongoing. Inputs are noted. Clinical status of the patient is certainly improved - compared to the initial presentation. I will discuss the above with Dr. York. Gonsalo Lawrence MD MTDYashira
[2018-03-29] MEDS ORDERED: Bisacodyl 5mg EC Tab PO ONE (08:14)
[2018-03-29] MEDS: Budesonide 0.5 mg/2 ml Inhal Susp UD IH SCH ×2 (08:50→19:16)
[2018-03-29] MEDS: GlipiZIDE 5 mg SR Tab PO SCH ×2 (10:00→18:29)
--- NOTE | 2018-03-29 10:41 | PN ---
DATE: 03/29/2018 DAILY PROGRESS NOTE SUBJECTIVE: The patient is a 78-year-old female, who was admitted to the Intensive Care Unit on 03/24/2018 with an acute GI bleed. The patient had 2 episodes of bright red blood per rectum prior to presenting to the emergency room. She is known to have a past medical history positive for COPD, chronic bronchitis and noninsulin-dependent diabetes mellitus. She was seen by Dr. Magallanes, the commissioned police officer. She underwent endoscopy, which showed a shallow esophageal ulcer, gastritis, but no obvious source of bleeding. The patient was prepped yesterday for a colonoscopy to further evaluate multiple diverticuli that were noted on CT scan in the descending colon and sigmoid colon. However, there was inadequate prep for that procedure as well as the patient desatted to an O2 of about 46 during the procedure. She was once again reevaluated by Dr. Lawrence, the commissioned defence force officer and is being prepped for a repeat attempt at colonoscopy later on today. When seen, the patient is resting comfortably. She is awake, alert and oriented. Her respirations are easy. Her lungs are clear to auscultation and percussion. Heart is regular. Abdomen is soft and nontender. The patient is scheduled for colonoscopy later on today. I will ask physical therapy to evaluate the patient post procedure. If all goes well, I would want her to be stable in ambulation and stair climbing prior to discharge to home. Mentioning this to the patient, she thought that she would be; however, we will request PT zully. Taj York MD
[2018-03-29] MEDS: BRIMONIDINE OU SCH (10:50)
[2018-03-29] MEDS: BRINZOLAMIDE OU SCH (10:50)
[2018-03-29] MEDS ORDERED: Midazolam 2 MG/2 ML VIAL ONE (15:58)
[2018-03-29] MEDS ORDERED: Etomidate 20 mg/10ml Inj IV ONE (16:00)
[2018-03-29] MEDS ORDERED: Sodium Chloride 0.9% 1,000 ML IV SCH (16:30)
[2018-03-30] MEDS: Albuterol-Ipratrop 3 mg / 0.5 (3 ml) UD INH SCH ×4 (01:49→20:10)
[2018-03-30] MEDS ORDERED: Albuterol-Ipratrop 3 mg / 0.5 (3 ml) UD IH PRN (07:48)
--- NOTE | 2018-03-30 08:14 | CP.PCM.PN ---
<Morteza Levi - Last Filed: 03/30/18 07:58> Subjective - Date & Time of Evaluation Date of Evaluation: 03/30/18 Time of Evaluation: 07:58 - Subjective Subjective: GI PROGRESS NOTE FOR DR. CHRISTIANO LEVI PGY2 Patient seen and examined this AM. No acute events reported overnight. Patient indicates tolerating diet, passing flatus. She denies chest pain, shortness of breath, abdominal pain. Objective - Vital Signs/Intake and Output Vital Signs (last 24 hours): Temp Pulse Resp BP Pulse Ox 98 F 85 20 129/61 90 L 03/29/18 22:37 03/29/18 22:37 03/29/18 22:37 03/29/18 22:37 03/29/18 22:37 - Medications Medications: Current Medications Albuterol/Ipratropium (Duoneb 3 Mg/0.5 Mg (3 Ml) Ud) 3 ml INH [id number] [facility] Last Admin: 03/30/18 01:49 Dose: 3 ml Albuterol/Ipratropium (Duoneb 3 Mg/0.5 Mg (3 Ml) Ud) 3 ml IH Q2H PRN PRN Reason: Shortness of Breath Budesonide (Pulmicort Respules) 0.5 mg IH [id number] [facility] Last Admin: 03/29/18 19:16 Dose: 0.5 mg Furosemide (Lasix) 40 mg PO DAILY [facility] Last Admin: 03/29/18 09:05 Dose: 40 mg Glipizide (Glucotrol Xl) 5 mg PO BID [facility] Last Admin: 03/29/18 18:29 Dose: 5 mg Home Med (Home Med) 1 unit OU DAILY [facility] Last Admin: 03/28/18 09:35 Dose: Not Given Sodium Chloride (Sodium Chloride 0.9%) 1,000 mls @ 100 mls/hr IV .Q10H [facility] Methylprednisolone (Medrol) 4 mg PO DAILY [facility] Last Admin: 03/29/18 18:29 Dose: 4 mg Pantoprazole Sodium (Protonix Inj) 40 mg IVP Q12 [facility] Last Admin: 03/29/18 21:18 Dose: 40 mg - Labs Labs: 03/28/18 10:45 03/28/18 10:45 PT 12.0 SECONDS (9.4-12.5) 03/24/18 09:35 INR 1.04 03/24/18 09:35 APTT 32.0 Seconds (25.1-36.5) 03/24/18 09:35 - Constitutional Appears: No Acute Distress - Head Exam Head Exam: ATRAUMATIC, NORMAL INSPECTION, NORMOCEPHALIC - Eye Exam Eye Exam: EOMI, PERRL - ENT Exam ENT Exam: Mucous Membranes Moist - Neck Exam Neck Exam: Full ROM - Respiratory Exam Respiratory Exam: Clear to Ausculation Bilateral, NORMAL BREATHING PATTERN - Cardiovascular Exam Cardiovascular Exam: REGULAR RHYTHM, +S1, +S2 - GI/Abdominal Exam GI & Abdominal Exam: Soft, Normal Bowel Sounds. absent: Firm, Guarding, Rigid, Tenderness - Neurological Exam Neurological Exam: Alert, Awake, Oriented x3 - Psychiatric Exam Psychiatric exam: Normal Affect, Normal Mood - Skin Skin Exam: Dry, Intact Assessment and Plan - Assessment and Plan (Free Text) Assessment: 78 year old female with past medical history of COPD, HTN, hx of diverticular disease who presented with rectal bleeding on admission s/p EGD showing no signs of active bleeding. Patient went for repeat colonoscopy yesterday showing diverticulosis in the sigmoid colon and descending colon, internal hemorrhoids without signs of active bleeding. Plan: Lower GI bleed - Hgb stable Diverticulosis hx of polyps Chronic NSAID use COPD Hx Rheumatoid Arthritis HTN DM2 - Colonoscopy(03/29/2018) - Diverticulosis of entire examined colon, internal hemorrhoids - Monitor H/H, CBC stable, goal Hgb >7, transfuse as necessary - Holding NSAIDS, AC - Clear liquid diet, advance as tolerated - Monitor for recurrent bleeding, if occurs consider bleeding scan - Further recommendations per Dr. Magallanes <Desirae Magallanes V - Last Filed: 03/31/18 00:09> Objective - Vital Signs/Intake and Output Vital Signs (last 24 hours): Temp Pulse Resp BP Pulse Ox 99.2 F 82 18 115/46 L 94 L 03/30/18 14:00 03/30/18 14:00 03/30/18 14:00 03/30/18 14:00 03/30/18 14:00 Intake and Output: 03/30/18 03/31/18 18:59 06:59 Intake Total 1200 Output Total 650 Balance 550 - Labs Labs: 03/28/18 10:45 03/28/18 10:45 PT 12.0 SECONDS (9.4-12.5) 03/24/18 09:35 INR 1.04 03/24/18 09:35 APTT 32.0 Seconds (25.1-36.5) 03/24/18 09:35 Attending/Attestation - Attestation I have personally seen and examined this patient.: Yes I have fully participated in the care of the patient.: Yes I have reviewed all pertinent clinical information, including history, physical exam and plan: Yes Notes (Text): This is an addendum to GI followup report dictated by the Prop And Scenery Maker. The patient was seen and evaluated earlier. Medical records, lab studies, imagings were reviewed. Last 24 hours events reviewed. Agreed with the above treatment plan as outlined in Prop And Scenery Maker 's notes with the addition of the following Status post EGD and colonoscopy EGD junction ulcer On PPI endoscopy multiple diverticulosis and hemorrhoids Patient would need a repeat EGD to evaluate the healing of the ulcer in about 8 weeks 03/31/18 00:08
--- NOTE | 2018-03-30 08:25 | PN ---
DATE: 03/30/2018 PULMONARY NOTE SUBJECTIVE: The patient appears comfortable this morning. She is out of bed, sitting in the chair. She is not short of breath at rest. PHYSICAL EXAMINATION: VITAL SIGNS: (Last noted in the computer): Temperature is 98, pulse 85, respirations 18-20, blood pressure 129/61. Oxygen saturation on room air is 90%-95%. HEENT: Normocephalic, atraumatic. No JVD. CARDIOVASCULAR: Systolic ejection murmur at the lower left sternal border. No S3 gallop. LUNGS: Minimal/less rhonchi. No wheezing. EXTREMITIES: No clubbing, cyanosis, or edema. Calves are nontender to palpation. GASTROINTESTINAL: Abdomen is soft, nontender, and nondistended. Bowel sounds are positive. SKIN: No acute rash. NEUROLOGIC: Limited at the present time. IMPRESSION: 1. Rectal bleeding. 2. Anemia. 3. Chronic obstructive pulmonary disease. 4. Obstructive sleep apnea. 5. Diabetes mellitus. PLAN: The patient appears comfortable this morning. She is out of bed, sitting in the chair. She is not short of breath. She does state to feeling better overall. I did discuss the case with the night nurse at length. The night nurse stated that the patient had a good night. On physical exam, there is only minimal bronchospasm noted. In addition, there is no significant alveolar-arterial gradient. I will continue with the current nebulizer treatments and low-dose Medrol for now. Input by GI is noted. Evaluation is ongoing. Clinical status of the patient is certainly improved - compared to the initial presentation. I will discuss the above with Dr. York later this morning. Gonsalo Lawrence MD MTDD
[2018-03-30] MEDS: Budesonide 0.5 mg/2 ml Inhal Susp UD IH SCH ×2 (08:32→20:10)
[2018-03-30 10:04] VITALS: RESP 18
[2018-03-30] MEDS: GlipiZIDE 5 mg SR Tab PO SCH ×2 (10:49→17:31)
[2018-03-30] MEDS: BRIMONIDINE OU SCH (10:50)
[2018-03-30] MEDS: BRINZOLAMIDE OU SCH (10:50)
[2018-03-30 17:49] VITALS: BP 115/46; PULSE 82; TEMP 99.2; O2SAT 94
== END 2018-03-30 21:12 | disposition home or self-care (01) | DRG 378 ==
LOC: ED 08:47 → ERH 11:14 → ICU 20:34 → 5RNO 03-25 15:29 → OBSVTOIN 03-27 17:57
PROVIDERS: ADMIT Internal Medicine; ATTEND Internal Medicine
PROC: 0DJ08ZZ Inspection of Upper Intestinal Tract, Via Natural or Artificial Opening Endoscopic (ICD-10-PCS; 2018-03-24)
PROC: 0DJD8ZZ Inspection of Lower Intestinal Tract, Via Natural or Artificial Opening Endoscopic (ICD-10-PCS; 2018-03-28)
PROC: 0DJD8ZZ Inspection of Lower Intestinal Tract, Via Natural or Artificial Opening Endoscopic (ICD-10-PCS; principal; 2018-03-29 13:30)
DX: K92.2 Gastrointestinal hemorrhage, unspecified (principal); D62 Acute posthemorrhagic anemia; K22.10 Ulcer of esophagus without bleeding; K92.1 Melena; E11.9 Type 2 diabetes mellitus without complications; I10 Essential (primary) hypertension; K22.2 Esophageal obstruction; K57.30 Diverticulosis of large intestine without perforation or abscess without bleeding; K29.70 Gastritis, unspecified, without bleeding; M06.9 Rheumatoid arthritis, unspecified; Z91.19 Patient's noncompliance with other medical treatment and regimen; Z79.82 Long term (current) use of aspirin; Z79.1 Long term (current) use of non-steroidal anti-inflammatories (NSAID); G47.33 Obstructive sleep apnea (adult) (pediatric); K64.8 Other hemorrhoids; H91.93 Unspecified hearing loss, bilateral; J44.9 Chronic obstructive pulmonary disease, unspecified; K25.9 Gastric ulcer, unspecified as acute or chronic, without hemorrhage or perforation; Z80.3 Family history of malignant neoplasm of breast; Z82.5 Family history of asthma and other chronic lower respiratory diseases; Z87.01 Personal history of pneumonia (recurrent); Z87.440 Personal history of urinary (tract) infections; Z96.652 Presence of left artificial knee joint; K44.9 Diaphragmatic hernia without obstruction or gangrene

== ENCOUNTER 2018-06-03 01:55 | Inpatient (IN) | payer MEDICARE, BC ==
[2018-06-03 01:59] VITALS: BMI 28.3
[2018-06-03] MEDS ORDERED: Magnesium Sulfate 2 gm/50 ml 2 GM/50 ML BAG IVPB ONE (02:02)
--- NOTE | 2018-06-03 02:06 | ED PDOC ---
Arrival/HPI - General Time Seen by Provider: 06/03/18 01:58 Historian: Patient - History of Present Illness Narrative History of Present Illness (Text): 06/03/18 02:02 78 year old female, whose past medical history includes chronic bronchitis, COPD, emphysema, NIDDM, and sleep apnea, presents to the emergency department complaining of worsening shortness of breath and cough for the past week. Patient was given a nebulizer treatment prior to arrival with no relief. Patient is not a smoker. The patient denies any fever, chills, chest pain, abdominal pain, nausea, vomiting, diarrhea, urinary symptoms, back pain, neck pain, headache, dizziness, or any other complaints. Time/Duration: 1 week Symptom Onset: Gradual Symptom Course: Worsening Activities at Onset: Light Context: Home Past Medical History - Provider Review Nursing Documentation Reviewed: Yes - Past History Past History: Non-Contributing - Infectious Disease Hx of Infectious Diseases: None - Tetanus Immunization Tetanus Immunization: Unknown - Past Medical History Past Medical History: Non-Contributing - Cardiac Hx Pacemaker: No - Pulmonary Hx Asthma: Yes Hx Chronic Obstructive Pulmonary Disease (COPD): Yes Hx Pneumonia: Yes - Neurological Hx Paralysis: No - HEENT Hx HEENT Disorder: Yes Hx Cataracts: Yes (b/l) Hx Deafness: Yes (b/l hearing aids) - Renal Hx Renal Disorder: No - Endocrine/Metabolic Hx Diabetes Mellitus Type 2: Yes - Hematological/Oncological Hx Blood Transfusions: (PT UNSURE) - Integumentary Hx Dermatological Disorder: No - Musculoskeletal/Rheumatological Hx Musculoskeletal Disorders: Yes (CARPAL TUNNEL SX BILATERAL HAND.L KNEE REPLACEMENT,L ARM FX,R KNEE ACHILLES) - Gastrointestinal Hx Gall Bladder Disease: Yes - Genitourinary/Gynecological Hx Urinary Tract Infection: Yes - Psychiatric Hx Emotional Abuse: No Hx Physical Abuse: No Hx Substance Use: No - Surgical History Hx Joint Replacement: Yes - Anesthesia Hx Anesthesia Reactions: No Hx Malignant Hyperthermia: No - Suicidal Assessment Feels Threatened In Home Enviroment: No Family/Social History - Physician Review Nursing Documentation Reviewed: Yes Family/Social History: No Known Family HX Smoking Status: Never Smoked Hx Alcohol Use: No Hx Substance Use: No Hx Substance Use Treatment: No Allergies/Home Meds Allergies/Adverse Reactions: Allergies ampicillin Allergy (Verified 06/03/18 02:00) ANAPHYLAXIS Penicillins Allergy (Verified 06/03/18 02:00) ANAPHYLAXIS pregabalin [From Lyrica] Allergy (Verified 06/03/18 02:00) RASH Home Medications: Home Meds Medication Instructions Recorded Confirmed Albuterol/Ipratropium [Duoneb 3 3 ml IN Q4 PRN 11/14/17 06/03/18 mg/0.5 mg (3 ml) UD] Aspirin [Adult Aspirin] 81 mg PO DAILY 11/14/17 06/03/18 Bran/Gum/Fib/Rosy/Psyl/Kelp/Pec 1,000 mg PO DAILY 11/14/17 06/03/18 [Fiber 6 Tablet] Brimonidine Tartrate [Alphagan P 5 ml BOTHEYES BID 11/14/17 06/03/18 0.1 % Ophth] Furosemide [Lasix] 40 mg PO DAILY 11/14/17 06/03/18 Multivit-Min/Folic Acid/[id number] 1 each PO DAILY 11/14/17 06/03/18 [Alive Women's Gummy Vitamins] RX: Glipizide [Glipizide ER] 5 mg PO BID 11/14/17 06/03/18 metFORMIN [glucOPHAGE] 500 mg PO BID 11/14/17 06/03/18 Diclofenac Sodium [Diclofenac 100 mg PO DAILY 03/24/18 06/03/18 Sodium ER] Review of Systems - Physician Review All systems were reviewed & negative as marked: Yes - Review of Systems Constitutional: absent: Fevers, Other Respiratory: absent: SOB Cardiovascular: Chest Pain Gastrointestinal: Abdominal Pain. absent: Diarrhea, Nausea, Vomiting Genitourinary Female: absent: Dysuria, Frequency, Hematuria Musculoskeletal: absent: Back Pain, Neck Pain Physical Exam Vital Signs Reviewed: Yes Temperature: Afebrile Blood Pressure: Normal Pulse: Regular Respiratory Rate: Tachypneic Appearance: Positive for: Well-Appearing, Non-Toxic, Comfortable Pain Distress: None Mental Status: Positive for: Alert and Oriented X 3 - Systems Exam Head: Present: Atraumatic, Normocephalic Pupils: Present: PERRL Extroacular Muscles: Present: EOMI Conjunctiva: Present: Normal Mouth: Present: Moist Mucous Membranes Neck: Present: Normal Range of Motion Respiratory/Chest: Present: Wheezes (Diffuse), Rhonchi, Tachypneic. No: Respiratory Distress, Accessory Muscle Use Cardiovascular: Present: Regular Rate and Rhythm, Normal S1, S2. No: Murmurs Abdomen: No: Tenderness, Distention, Peritoneal Signs Back: Present: Normal Inspection Upper Extremity: Present: Normal Inspection. No: Cyanosis, Edema Lower Extremity: Present: Normal Inspection. No: Edema Neurological: Present: GCS=15, CN II-XII Intact, Speech Normal Skin: Present: Warm, Dry, Normal Color. No: Rashes Psychiatric: Present: Alert, Oriented x 3, Normal Insight, Normal Concentration Medical Decision Making ED Course and Treatment: 06/03/18 02:02 Impression: 78 year old female presents complaining of worsening shortness of breath and cough for the past week. Plan: -- VBG -- Labs -- EKG -- CXR -- Duoneb, Magnesium Sulfate -- Influenza A B -- Urinalysis -- BIPAP -- Reassess and disposition Prior Visits: Notes and results from previous visits were reviewed. Progress Notes: EKG shows NSR at 82 BPM with non-specific ST/T wave changes. Interpreted by me 06/03/18 04:20 CXR Impression: As read by me, negative. 06/03/18 04:[address] Taj York who is aware and agrees with the plan. Accepts patient into his service. 06/05/18 17:23 pt toelrating bipap accepted by pmd. - Lab Interpretations I have reviewed the lab results: Yes - EKG Interpretation Interpreted by ED Physician: Yes Type: 12 lead EKG - Scribe Statement The provider has reviewed the documentation as recorded by the Chaitanya Kaiser Provider Scribe Attestation: All medical record entries made by the Chaitanya were at my direction and personally dictated by me. I have reviewed the chart and agree that the record accurately reflects my personal performance of the history, physical exam, m edical decision making, and the department course for this patient. I have also personally directed, reviewed, and agree with the discharge instructions and disposition. Disposition/Present on Arrival - Present on Arrival Any Indicators Present on Arrival: No History of DVT/PE: No History of Uncontrolled Diabetes: No Urinary Catheter: No History Surgical Site Infection Following: None - Disposition Have Diagnosis and Disposition been Completed?: Yes Diagnosis: COPD exacerbation, CHF (congestive heart failure) Disposition: HOSPITALIZED Disposition Time: 12:00 Condition: STABLE
[2018-06-03] MEDS: Albuterol-Ipratrop 3 mg / 0.5 (3 ml) UD IH SCH ×4 (02:15→21:22)
[2018-06-03 02:27] LABS: BASO # 0.06 K/mm3 (0.0-2.0); BASO % 0.6 % (0.0-3.0); EOS % 10.1 % (1.5-5.0); GRAN # 6.66 (1.4-6.5); GRAN % 67.1 % (50.0-68.0); LYMPH # 1.6 (1.2-3.4); LYMPH % 16.5 % (22.0-35.0); MEAN CELL VOLUME 90.7 fl (80.0-105.0); MEAN CORPUSCULAR HEMOGLOBIN 27.4 pg (25.0-35.0); MEAN CORPUSCULAR HGB CONC 30.2 g/dl (31.0-37.0); MEAN PLATELET VOLUME 11.9 fl (7.0-11.0); MONO # 0.6 (0.1-0.6); MONO % 5.7 % (1.0-6.0); RBC 3.65 10^6/uL (3.5-6.1); RED CELL DISTRIBUTION WIDTH 13.5 % (11.5-14.5); WHITE BLOOD COUNT 9.9 10^3/uL (4.5-11.0)
[2018-06-03 02:28] LABS: VENOUS BLOOD GAS BASE EXCESS -3.8 mmol/L (0.0-2.0); VENOUS BLOOD GAS PO2 64 mm/Hg (30-55); VENOUS BLOOD PH 7.22 (7.32-7.43)
[2018-06-03 02:43] LABS: INR 1.02; PARTIAL THROMBOPLASTIN TIME 33.7 Seconds (25.1-36.5); PROTHROMBIN TIME 11.7 SECONDS (9.4-12.5)
[2018-06-03 02:48] LABS: TROPONIN I 0.02 ng/mL
[2018-06-03 03:08] LABS: ARTERIAL BLOOD GAS PCO2 50 mm/Hg (35-45); ARTERIAL BLOOD GAS PH 7.27 (7.35-7.45)
[2018-06-03 03:09] LABS: ARTERIAL BLOOD GAS HEMOGLOBIN 9.8 g/dL (11.7-17.4); ARTERIAL BLOOD GAS O2 SAT 99.9 % (95-98); ARTERIAL BLOOD GAS TCO2 24.5 mmol.L (22-28)
[2018-06-03 03:30] LABS: ALB/GLOB RATIO 1.2 (1.1-1.8); ALBUMIN 3.9 g/dL (3.0-4.8)
[2018-06-03 06:22] LABS: PH,URINE 5.5 (4.7-8.0); URINE BILIRUBIN NEGATIVE (NEGATIVE); URINE BLOOD NEGATIVE (NEGATIVE); URINE GLUCOSE (UA) NEGATIVE (NEGATIVE); URINE LEUKOCYTE ESTERASE NEGATIVE Leu/uL (NEGATIVE); URINE PROTEIN NEGATIVE mg/dL (<30 mg/dL); URINE UROBILINOGEN 0.2 E.U./dL (<1 E.U./dL)
[2018-06-03 06:24] LABS: URINE APPEARANCE CLEAR (CLEAR); URINE COLOR LIGHT YELLOW (YELLOW)
[2018-06-03] MEDS: Albuterol-Ipratrop 3 mg / 0.5 (3 ml) UD IH PRN ×2 (07:50→07:55)
--- NOTE | 2018-06-03 08:06 | RAD ---
Date of service: 06/03/2018 HISTORY: copd COMPARISON: 03/24/2018 FINDINGS: LUNGS: No active pulmonary disease. PLEURA: No significant pleural effusion identified, no pneumothorax apparent. CARDIOVASCULAR: Minimal aortic calcification Mild cardiomegaly no pulmonary vascular congestion. OSSEOUS STRUCTURES: No significant abnormalities. VISUALIZED UPPER ABDOMEN: Normal. OTHER FINDINGS: None. IMPRESSION: No active disease.
[2018-06-03] MEDS ORDERED: Albuterol-Ipratrop 3 mg / 0.5 (3 ml) UD INH PRN (08:27)
[2018-06-03] MEDS: GlipiZIDE 5 mg SR Tab PO SCH ×2 (09:16→19:30)
--- NOTE | 2018-06-03 09:53 | CARD ---
APPROVED REPORT Date of service: 06/03/2018 EKG Measurement Heart [id number] <Conclusion> Normal sinus rhythm Anterior infarct, age undetermined Abnormal ECG
[2018-06-03] MEDS ORDERED: BRIMONIDINE TARTRATE BOTHEYES SCH (10:00)
[2018-06-03] MEDS: [UNRECOGNIZED DRUG - OTHER] PO SCH (10:00)
[2018-06-03] MEDS: BRIMONIDINE TARTRATE BOTHEYES SCH ×2 (10:00→19:02)
[2018-06-03] MEDS ORDERED: [UNRECOGNIZED DRUG - OTHER] PO SCH (10:00)
[2018-06-03 10:40] LABS: ALB/GLOB RATIO 1.3 (1.1-1.8); ALBUMIN 4.3 g/dL (3.0-4.8); CALCIUM 9.4 mg/dL (8.4-10.5)
[2018-06-03] MEDS: levoFLOXacin 500 mg in D5W 500 MG/100 ML BAG IVPB SCH (12:55)
[2018-06-03] MEDS: MethylPREDNISolone 40 mg Vial IVP SCH ×2 (12:55→22:04)
[2018-06-03] MEDS ORDERED: Sod Polystyrene Sulf 15 gm/60 ml Susp PO ONE (13:59)
--- NOTE | 2018-06-03 15:14 | HP ---
DATE OF EXAM: 06/03/2018 HISTORY OF PRESENT ILLNESS: The patient is a 78-year-old female who presents to the emergency room complaining of acute shortness of breath and wheezing. The patient called me earlier in the day saying that she had felt upper respiratory infection coming on over the past few days and was not subsiding. I called in azithromycin for the patient which she got from the emergency room and took the first dose; however, as her symptoms continued to worsen, she presented to the emergency room. Of note, the patient had also complained pretibial edema. The patient was to be taking Lasix 20 or 40 mg tablets. It seems the patient became confused with her medications instead of taking Lasix was taking potassium 10 mEq tablets twice a day and no diuretic. PAST MEDICAL HISTORY: The patient is known to have a past medical history of chronic obstructive pulmonary disease, status post cataract surgery, bilaterally she has hearing loss, she is a [id number]-[id number] diabetic. PAST SURGICAL HISTORY: She is status post left total knee replacement, status post left arm fracture. She has had surgery on bilateral carpal tunnels. She is also status post cholecystectomy. SOCIAL HISTORY: She never smoked. She is a . She does not drink alcoholic beverages. ALLERGIES: SHE IS KNOWN TO BE ALLERGIC TO PENICILLIN WHICH CAUSED ANAPHYLAXIS IN THE PAST. SHE IS ALSO ALLERGIC TO LYRICA WHICH CAUSED A RASH IN THE PAST. MEDICATIONS: At the time of admission included; DuoNeb nebulizer treatments every 4 hours as needed, 81 mg aspirin once a day, she takes fiber tablets for constipation, Alphagan eye drops twice a day to both eyes, she used Lasix 40 mg daily, glipizide 5 mg twice a day, multivitamins once a day, metformin 500 mg twice a day and diclofenac 100 mg daily. REVIEW OF SYSTEMS: Otherwise unremarkable. PHYSICAL EXAMINATION: HEAD, EYES, EARS, NOSE AND THROAT: Normal. NECK: Supple with no lymphadenopathy. No goiter. LUNGS: Have a diffuse slight wheeze throughout. HEART: Regular. No murmurs are appreciated. ABDOMEN: Soft, nontender with no organomegaly. EXTREMITIES: Show +1 to +2 edema in the pretibial area, the right seems to be slightly greater than the left. NEUROLOGIC: The patient is awake, alert and oriented with no focal neurological signs. LABORATORY STUDIES: Show the white blood cell count to be 9.9, hemoglobin and hematocrit are 10.0 and 33.1, platelet count is 218. Sodium is 139, potassium is 5.7, blood urea nitrogen is 15, creatinine 1.8, glucose is 145. BNP was elevated at 4140. Troponins are negative at 0.02. Chest x-ray shows no acute disease. EKG shows regular sinus rhythm with an old anterior wall myocardial infarction. IMPRESSION AND PLAN: The patient is admitted. Her medications from home are continued. We will be starting antibiotics, intravenous Levaquin for this patient. Consultation from pulmonary, Dr. Lawrence, Dr. Paiz and Dr. Turk will be requested. Repeat blood work will be done to reevaluate the potassium after receiving some Kayexalate and Lasix in the emergency room. Taj York MD
--- NOTE | 2018-06-04 00:45 | CON ---
DATE: 06/03/2018 REASON FOR CONSULTATION: Shortness of breath, exacerbation of COPD, emphysema, history of nonischemic cardiomyopathy with ejection fraction of 25% to 30% of cardiac catheterization on 05/12/2017. Patient admitted with shortness of breath and cough. HISTORY OF PRESENT ILLNESS: A 78-year-old female with known case of COPD, hypertension, non-insulin dependent diabetes mellitus, nonischemic cardiomyopathy, admitted with 1 week of cough and shortness of breath. Sometimes, she had clear expectoration, other times it is a dry cough. Patient was using hand nebulizer therapy at home and oxygen at home, but she did not improve. She also was told to have sleep apnea in the past and obesity. She is also known to have hyperlipidemia. PREVIOUS HOSPITALIZATION: The patient was admitted for exacerbation of COPD in the past, cardiac catheterization on 05/12/2017, which showed nonobstructive coronary artery disease with an ejection fraction of 25% to 30%, so this is a nonischemic cardiomyopathy. The patient also had left knee surgery x2, also had ankle surgery, carpal tunnel bilateral surgery, and cholecystectomy. PERSONAL HISTORY: She denies smoking. Denies drinking. ALLERGIES: THE PATIENT IS ALLERGIC TO PENICILLIN, AUGMENTIN, GABAPENTIN. MEDICATIONS: List of medications at home: 1. The patient was on metformin 500 mg twice a day. 2. Medrol Dosepak 4 mg daily. 3. Glipizide 5 mg twice a day. 4. Furosemide 40 daily. 5. Potassium 1 b.i.d. 6. Hand nebulizer therapy and oxygen. REVIEW OF SYSTEMS: All the systems reviewed, positive mentioned in the history, others were negative. PREVIOUS CARDIAC WORKUP: The patient on 05/12/2017, had cardiac catheterization which showed nonobstructive coronary artery disease with an LV ejection fraction of 25% to 30% consistent with nonischemic cardiomyopathy, echo was done on 05/13/2017, which showed ejection fraction of 35% to 40%, trace aortic regurgitation, trace mitral regurgitation, trace tricuspid regurgitation, RVSP 30 mmHg. Stress test also at that time ejection fraction was 24% and no ischemia was seen. PHYSICAL EXAMINATION: VITAL SIGNS: Blood pressure 135/60, respirations 20, pulse 88, temperature 97.9. HEENT: Head is normocephalic. Eyes, pupils normal. Conjunctivae, slightly pale. NECK: JVP low. Carotid equal. THORAX: AP diameter normal. LUNGS: The patient has bilateral expiratory wheeze. CARDIOVASCULAR: S1. S2. ABDOMEN: Soft. No tenderness. No organomegaly. EXTREMITIES: The patient has 1+ edema. She states swelling was more before, but now it has improved. LABORATORY DATA: Sodium 139, potassium on admission 5.7, BUN 15, creatinine 1.8, glucose 145, repeat glucose 231. Magnesium 1.5, repeat magnesium 1.6. AST and ALT normal. Troponin 0.02. NT-proBNP natriuretic peptide 4140. Chest x-ray; no evidence of CHF, clear lungs. EKG showed sinus rhythm, possible old infarct. DIAGNOSES: Exacerbation of chronic obstructive pulmonary disease; history of nonischemic cardiomyopathy, the patient not in congestive heart failure at present; diabetes mellitus; hypertension; hyperkalemia, renal dysfunction; anemia; sleep apnea. PLAN: The patient by mistake was taking potassium and not taking Lasix at home that is probably explanation for the hyperkalemia. The patient also has hypomagnesemia. The patient is getting aspirin 81 mg daily, albuterol, ipratropium, hand nebulizer therapy, metformin 500 b.i.d., glipizide 5 b.i.d. The patient received IV Lasix 41 dose STAT, now she is on 40 p.o. daily, levofloxacin 500 mg IV piggyback daily. The patient already ordered magnesium sulfate 2 g IV, methylprednisolone 30 mg IV every 12 hours. We will give Kayexalate 20 g p.o. today for hyperkalemia since patient's ejection fraction on the last was 25% to 30%. We will do MUGA scan to evaluate the ejection fraction now. At that time, it was suggested that the patient will have reevaluation in 3 to 6 months about the ejection fraction and therefore it will be 35 or below. She might benefit from AICD infarction, so we will do MUGA scan to evaluate the ejection fraction at present. Clinically, she is not in failure at present. We will follow. Anne García MD [facility] # [id number]
[2018-06-04] MEDS ORDERED: POLYETHYLENE GLYCOL 3350 17 GM/Dose PACKET PO ONE (00:53)
[2018-06-04] MEDS: Albuterol-Ipratrop 3 mg / 0.5 (3 ml) UD IH SCH ×4 (02:18→20:16)
[2018-06-04] MEDS: Budesonide 0.5 mg/2 ml Inhal Susp UD IH SCH ×2 (07:30→20:16)
[2018-06-04 07:34] LABS: EOS % 0.1 % (1.5-5.0); GRAN # 5.78 (1.4-6.5); GRAN % 86.2 % (50.0-68.0); HEMOGLOBIN 9.7 g/dL (12.0-16.0); LYMPH # 0.6 (1.2-3.4); LYMPH % 8.6 % (22.0-35.0); MEAN CELL VOLUME 87.5 fl (80.0-105.0); MEAN CORPUSCULAR HEMOGLOBIN 26.9 pg (25.0-35.0); MEAN CORPUSCULAR HGB CONC 30.7 g/dl (31.0-37.0); MEAN PLATELET VOLUME 11.7 fl (7.0-11.0); MONO # 0.3 (0.1-0.6); MONO % 5.1 % (1.0-6.0); RBC 3.61 10^6/uL (3.5-6.1); RED CELL DISTRIBUTION WIDTH 13.2 % (11.5-14.5); WHITE BLOOD COUNT 6.7 10^3/uL (4.5-11.0)
--- NOTE | 2018-06-04 08:21 | CON ---
DATE: 06/04/2018 PULMONARY CONSULTATION REASON FOR PULMONARY CONSULTATION: Chronic obstructive pulmonary disease. REFERRING PHYSICIAN FOR THIS PULMONARY CONSULTATION: Dr. York. History is obtained via extensive discussion with the night nurse. I have also reviewed the chart at length, and discussed case with the patient at length. HISTORY OF PRESENT ILLNESS: The patient is a 78-year-old female, with past medical history significant for advanced chronic obstructive pulmonary disease, obstructive sleep apnea (noncompliant with CPAP; has not used her machine in "many years"), jhb-[id number] diabetes mellitus, nonischemic cardiomyopathy, who presents to [facility] ([facility]3] with increasing shortness of breath at rest, dyspnea on exertion, and cough for the past week. There is no history of significant sputum production. There is no history of chest pain, coughing up of blood, or chest pain - made worse with deep respirations. There is no history of temperatures, chills or infectious exposure. There is no history of night sweats, weight loss or appetite change prior to the above events. No history of leg or calf pains. No history of syncope or diaphoresis. No history of recent travel or trauma. ALLERGIES: TO PENICILLINS AND LYRICA. SOCIAL HISTORY: Positive for tobacco and negative for alcohol. FAMILY HISTORY: No inheritable diseases. HOME MEDICATIONS: Include Glucophage, Medrol Dosepak, glipizide, Lasix, aspirin and DuoNebs. PHYSICAL EXAMINATION: GENERAL: The patient appears comfortable this morning. She is not short of breath at rest. She is not using accessory muscles for breathing. VITALS: Temperature is 98.1, pulse is 80, respirations 18/20, blood pressure 133/67. Oxygen saturation on nasal cannula is 96%. HEENT: Normocephalic, atraumatic. No JVD. CARDIOVASCULAR: Systolic ejection murmur at the lower left sternal border. No S3 gallop. LUNGS: Decreased breath sounds at the bases. Mild rhonchi and wheezing bilaterally. EXTREMITIES: Mild edema. No cyanosis or clubbing. Calves are nontender to palpation. GI: Abdomen is soft, nontender and nondistended. Bowel sounds are positive. SKIN: No acute rash. NEUROLOGIC: Exam limited at the present time. PERTINENT LABORATORY DATA: Chest x-ray was done yesterday and reviewed. There is no active disease noted. Arterial blood gas was done-- on what appears to be 35% oxygen. Results are: PH 7.27, pCO2 of 50, pO2 of 314. CBC: White count 9.9K, hemoglobin 10.0, hematocrit 33.1, platelets of 238,000. Complete metabolic profile: Potassium 5.4, creatinine 1.6, glucose to 231, magnesium 1.6. Rest of the metabolic profile is within normal limits. B-type natriuretic peptide 4140. IMPRESSION 1. Acute bronchitis. 2. Advanced chronic obstructive pulmonary disease. 3. Mild respiratory insufficiency. 4. Nonischemic cardiomyopathy. 5. Chronic renal insufficiency. PLAN: Again, I did discuss the case with the night nurse at length. I have also reviewed the chart at length, discussed case with the patient at length. The patient presents to [facility] ([facility]3] with a 1-week history of worsening pulmonary symptoms. As above, I did review the chest x-ray. The chest x-ray shows no active disease. I have also reviewed the arterial blood gas. The arterial blood gas reveals a mild respiratory acidosis, with quite adequate oxygenation. This morning, the patient is on nasal cannula with an oxygen saturation of 96%. She is refusing the BiPAP. I did discuss this issue with the patient at length. On physical exam, the patient is in [id number] bronchospasm. I will continue with the current nebulizer treatments and low-dose intravenous steroids. I will also add inhaled Pulmicort this morning. The patient does state to feeling much better this morning - compared to the initial presentation. She is clinically much improved. Additional pulmonary intervention will be based on the clinical status of the patient. I will discuss the above with Dr. York this morning. Thank you very much for this pulmonary consultation. Gonsalo Lawrence MD MTDD
[2018-06-04 08:24] LABS: ALB/GLOB RATIO 1.3 (1.1-1.8); ALBUMIN 3.7 g/dL (3.0-4.8); CALCIUM 8.7 mg/dL (8.4-10.5)
[2018-06-04] MEDS: BRIMONIDINE TARTRATE BOTHEYES SCH ×2 (10:48→17:36)
[2018-06-04] MEDS: [UNRECOGNIZED DRUG - OTHER] PO SCH (10:48)
[2018-06-04] MEDS: levoFLOXacin 500 mg in D5W 500 MG/100 ML BAG IVPB SCH (10:58)
[2018-06-04] MEDS: MethylPREDNISolone 40 mg Vial IVP SCH ×2 (10:58→21:11)
[2018-06-04] MEDS: GlipiZIDE 5 mg SR Tab PO SCH ×2 (10:58→17:36)
--- NOTE | 2018-06-04 11:48 | CP.PCM.PN ---
Subjective - Date & Time of Evaluation Date of Evaluation: 06/04/18 Time of Evaluation: 06:55 - Subjective Subjective: Awake, no distress, denies shortness of breath,sitting side of bed Reason for consultation and follow up: Cardiac evaluation of shortness of breath, history of chronic bronchitis, COPD, emphysema, NIDDM, and sleep apnea, Seen and examined by me and Dr. García Objective - Vital Signs/Intake and Output Vital Signs (last 24 hours): Temp Pulse Resp BP Pulse Ox 97.8 F 70 18 141/81 96 06/04/18 06:00 06/04/18 06:00 06/04/18 06:00 06/04/18 10:57 06/04/18 06:00 Intake and Output: 06/04/18 06/04/18 06:59 18:59 Intake Total 1320 Output Total 1050 Balance 270 - Medications Medications: Current Medications Albuterol/Ipratropium (Duoneb 3 Mg/0.5 Mg (3 Ml) Ud) 3 ml INH Q4 PRN PRN Reason: Wheezing Last Admin: 06/03/18 13:04 Dose: 3 ml Albuterol/Ipratropium (Duoneb 3 Mg/0.5 Mg (3 Ml) Ud) 3 ml IH [id number] [facility] Last Admin: 06/04/18 07:30 Dose: 3 ml Aspirin (Ecotrin) 81 mg PO DAILY [facility] Last Admin: 06/04/18 10:58 Dose: 81 mg Budesonide (Pulmicort Respules) 0.5 mg IH [id number] [facility] Last Admin: 06/04/18 07:30 Dose: 0.5 mg Furosemide (Lasix) 40 mg PO DAILY [facility] Last Admin: 06/04/18 10:57 Dose: 40 mg Glipizide (Glucotrol Xl) 5 mg PO BID [facility] Last Admin: 06/04/18 10:58 Dose: 5 mg Levofloxacin/Dextrose (Levaquin 500mg) 500 mg in 100 mls @ 100 mls/hr IVPB DAILY [facility]; Protocol Last Admin: 06/04/18 10:58 Dose: 100 mls/hr Metformin HCl (Glucophage) 500 mg PO BID [facility] Last Admin: 06/04/18 10:58 Dose: 500 mg Methylprednisolone (Solu-Medrol) 30 mg IVP Q12 [facility] Last Admin: 06/04/18 10:58 Dose: 30 mg Non-Formulary Medication (Brimonidine Tartrate [Alphagan P 0.1 % [facility]]) 5 ml BOTHEYES BID [facility] Last Admin: 06/04/18 10:48 Dose: Not Given Non-Formulary Medication (Diclofenac Sodium [Diclofenac Sodium Er]) 100 mg PO DAILY [facility] Last Admin: 06/04/18 10:48 Dose: Not Given Non-Formulary Medication (Multivit-Min/Folic Acid/[id number] [Alive Women's Gummy Vitamins]) 1 each PO DAILY [facility] Last Admin: 06/04/18 10:49 Dose: Not Given Non-Formulary Medication (Bran/Gum/Fib/Rosy/Psyl/Kelp/Pec [Fiber 6 Tablet]) 1,000 mg PO DAILY [facility] Last Admin: 06/04/18 10:48 Dose: Not Given - Labs Labs: 06/04/18 06:30 06/04/18 06:30 PT 11.7 SECONDS (9.4-12.5) 06/03/18 02:16 INR 1.02 06/03/18 02:16 APTT 33.7 Seconds (25.1-36.5) 06/03/18 02:16 - Constitutional Appears: Non-toxic, No Acute Distress - Head Exam Head Exam: NORMAL INSPECTION, NORMOCEPHALIC - Eye Exam Eye Exam: Normal appearance Pupil Exam: NORMAL ACCOMODATION - ENT Exam ENT Exam: Mucous Membranes Moist, Normal Exam - Respiratory Exam Respiratory Exam: Decreased Breath Sounds, NORMAL BREATHING PATTERN - Cardiovascular Exam Cardiovascular Exam: +S1, +S2 - GI/Abdominal Exam GI & Abdominal Exam: Soft, Normal Bowel Sounds - Extremities Exam Extremities Exam: Full ROM, Normal Capillary Refill - Neurological Exam Neurological Exam: Alert, Awake, Oriented x3 - Psychiatric Exam Psychiatric exam: Normal Affect, Normal Mood - Skin Skin Exam: Dry, Normal Color, Warm Assessment and Plan - Assessment and Plan (Free Text) Assessment: A 78 year old female who came in to the ER due to shortness of breath and cough for a week. History of chronic bronchitis, COPD, emphysema, NIDDM, hyperlipidemia,sleep apnea, and non ischemic cardiomyopathy. She used her nebulizer and oxygen at home but no improvement. Cardiac cath on 05/12/17 showed non-obstructive coronary artery disease with an LVEF of 25%-30% consistent with non ischemic cardiomyopathy. History of left knee surgery,ankle surgery,bilateral carpal tunnel surgery and cholecystectomy. Exacerbation of chronic COPD/bronchitis. Hyperkalemia ( mistakenly taking Potassium instead of Lasix). MUGA scan to reevaluate LVEF. If still low EF, will benefit AICD. Plan: Sitting at side of bed, no distress, feels better, Denies shortness of breath Cardiac status stable Heart rate and blood pressure controlled For MUGA to evaluate EF Potassium level normal now after giving Kayexalate yesterday On ASA 81 mg daily,Lasix 40 mg daily,Solumedrol 30 mg every 12 hours, Continue nebulizer treatments Pulmonary on consult Continue current treatment Continue current medications Will follow up Plan and treatment discussed with Dr. García
[2018-06-04] MEDS ORDERED: Magnesium Hydroxide Susp 30 ml UD PO ONE (12:37)
[2018-06-04] MEDS: Tobramycin 0.3% OPH OINT OS SCH (17:37)
--- NOTE | 2018-06-04 18:45 | PN ---
DATE: 06/04/2018 DAILY PROGRESS NOTE The patient is a 78-year-old female with a past medical history positive for chronic obstructive pulmonary disease, status post cataract surgery bilaterally with a hearing loss. She is a vnc-czlgwpu-jpesbneih diabetic who was admitted to [facility] yesterday after several days of increasing cough, shortness of breath. Her admitting diagnosis was that of COPD exacerbation. The patient also noted increasing pretibial edema over the past several days, however, had been mistakenly taking potassium tablets rather than diuretics for this swelling. The patient, when seen today, she is lying in bed. She is awake, alert, and oriented; however, she is complaining of dizziness, lightheadedness. She said the onset was while in the bathroom earlier. Her dizziness seems to coincide with starting of her intravenous Levaquin dose. During the hospital stay, the patient is being followed by Dr. Lawrence, Dr. Paiz, and Dr. Turk; the pulmonologists. Her current medications include DuoNeb nebulizer treatments every four hours as needed with DuoNeb nebulizer treatments every six hours scheduled. She is on aspirin 81 mg a day, Glucophage 500 mg twice a day, glipizide 5 mg twice a day, Lasix 40 mg orally once a day, Levaquin 500 mg once a day, Pulmicort Respules 0.5 mg inhalations every 12 hours, and Solu-Medrol 30 mg intravenously every 12 hours. I will be checking the patient's orthostatics concerning her dizziness. She is also scheduled for a MUGA scan in the morning to reevaluate her low ejection fraction which was 25%-30% as of last year. The patient also complained of some scratchiness under her eyelid. I will be giving her some medicated eyedrops for that. The patient will be reevaluated in the morning. Taj York MD
[2018-06-05] MEDS: Albuterol-Ipratrop 3 mg / 0.5 (3 ml) UD IH SCH ×4 (02:31→20:30)
[2018-06-05] MEDS: Budesonide 0.5 mg/2 ml Inhal Susp UD IH SCH (07:32)
--- NOTE | 2018-06-05 08:36 | PN ---
DATE: 06/04/2018 This is an addendum to the progress note, because detailed progress note has been already written by Estrella Sanz APN. LOCATION: The patient is in room 271, bed 2. REASON FOR CONSULTATION: Shortness of breath, which is excessive; patient with COPD; history of CHF; nonischemic cardiomyopathy with ejection fraction of 25% to 30%; cardiac cath on 05/12/2017. SUBJECTIVE: The patient's breathing is much better. Denies chest pain or palpitation. The patient has no significant rales; has slight wheezing and the patient continued to improved. Since the patient's ejection fraction was low at the time of cardiac catheterization, so I ordered a MUGA scan to evaluate the ejection fraction now and if it stays 35 or below, she may be a candidate for AICD insertion. Previous ejection fraction on cardiac catheterization was 25% to 30% on 05/12/2017. PLAN: So, we will continue present therapy and we will follow the MUGA scan. Detailed note has been already written by Estrella Sanz APN. We will follow with you. Anne García MD
[2018-06-05] MEDS: BRIMONIDINE TARTRATE BOTHEYES SCH ×2 (09:58→18:56)
[2018-06-05] MEDS: [UNRECOGNIZED DRUG - OTHER] PO SCH (09:58)
[2018-06-05] MEDS: GlipiZIDE 5 mg SR Tab PO SCH ×2 (10:04→18:26)
[2018-06-05] MEDS: Magnesium Oxide 400 mg Tab UD PO SCH ×2 (10:04→18:26)
[2018-06-05] MEDS: MethylPREDNISolone 40 mg Vial IVP SCH ×2 (10:09→21:06)
[2018-06-05] MEDS: Magnesium Chloride 64 mg ER Tab PO SCH (10:09)
[2018-06-05] MEDS: Tobramycin 0.3% OPH OINT OS SCH ×2 (10:11→18:57)
[2018-06-05] MEDS: levoFLOXacin 500 mg in D5W 500 MG/100 ML BAG IVPB SCH (10:15)
--- NOTE | 2018-06-05 13:08 | PN ---
DATE: 06/05/2018 PULMONARY NOTE SUBJECTIVE: The patient appears comfortable this morning. She is not short of breath at rest. OBJECTIVE: VITAL SIGNS: Temperature is 98.4, pulse 90, respirations 18/20, blood pressure 132/67. Oxygen saturation on nasal cannula is 96%. HEENT: Normocephalic, atraumatic. NECK: No JVD. CARDIOVASCULAR: Systolic ejection murmur at the lower left sternal border. No S3 gallop. LUNG: Improved breath sounds at the bases. Less rhonchi. Less wheezing. EXTREMITIES: Mild edema. No cyanosis, no clubbing. Calves are nontender to palpation. GASTROINTESTINAL: Abdomen is soft, nontender, nondistended. Bowel sounds are positive. SKIN: No acute rash. NEUROLOGIC: Exam limited at the present time. IMPRESSION: 1. Acute bronchitis. 2. Advanced chronic obstructive pulmonary disease. 3. Mild respiratory insufficiency. 4. Nonischemic cardiomyopathy. 5. Chronic renal insufficiency. PLAN: The patient appears comfortable this morning. She is not short of breath at rest. She does state to feeling much better overall. I did discuss the case with the night nurse at length. The night nurse stated that the patient had a good night, but continues to refuse her BiPap. I did discuss the issue with the patient again this morning. On physical exam, mild bronchospasm remains - albeit less. In addition, the alveolar-arterial gradient is now significantly less. I will continue the current nebulizer treatments and low-dose intravenous steroids for now. Hopefully, I will continue to taper the steroids in the next 24 to 48 hours - depending on the clinical condition of the patient. The patient also remains on intravenous Levaquin. There are no temperatures noted. There is no leukocytosis. Clinical status of the patient appears significantly improved - compared to initial presentation. However, given the above, her overall status/prognosis does remain guarded. I will discuss the above with the attending physician. Gonsalo Lawrence MD MTDYashira
--- NOTE | 2018-06-05 16:55 | PN ---
DATE: 06/05/2018 LOCATION: Room 271, bed 2. REASON FOR CONSULTATION: Shortness of breath, history of COPD, CHF, LV systolic failure, hyperlipidemia, vmq-jmlmwvo-yqkjmxbzv diabetes mellitus, nonischemic cardiomyopathy. SUBJECTIVE: The patient admitted with shortness of breath due to exacerbation of COPD and the patient is doing better now. Denies chest pain, palpitation. Breathing is getting better. Her cough is also getting better. The patient previously was treated for CHF and nonischemic cardiomyopathy. Her ejection fraction was 25% to 30% and the patient was suggested to reevaluate her ejection fraction in 3 to 6 months, but the patient did not follow up on that. PHYSICAL EXAMINATION: VITAL SIGNS: Blood pressure 147/59, respirations 18, pulse 69, temperature 98.5. HEENT: Head: Normocephalic. Eyes: Pupils normal. Conjunctivae slightly pale. NECK: JVP low. Carotid equal. THORAX: AP diameter normal. LUNGS: Few wheezing sound. CARDIOVASCULAR: S1, S2. ABDOMEN: Soft. No tenderness. No organomegaly. Bowel sounds normal. EXTREMITIES: No clubbing. No cyanosis. LABORATORY DATA: WBC 6.7, hemoglobin 9.7, hematocrit 31.6, platelet 236. Random sugar 125. DIAGNOSES: Shortness of breath. This admission is due to exacerbation of chronic obstructive pulmonary disease. The patient's congestive heart failure had been stable, nonischemic cardiomyopathy, anemia, noninsulin-dependent diabetes mellitus, hyperlipidemia, sleep apnea. PLAN: The patient previously was told to get reevaluation of her ejection fraction in 3 to 6 months, but the patient did not follow up on that. Her ejection fraction was 25% to 30% on cardiac catheter on 05/12/2017, so we have ordered MUGA scan on the patient to evaluate ejection fraction, now if 35 or below, she will need consideration for AICD insertion. In the meantime, the patient is improving for her exacerbation of COPD. We are going to continue present therapy including Lasix 40 daily, aspirin 81 daily, and the patient on methylprednisolone 30 mg every 12 hours, glipizide 5 b.i.d., metformin 500 b.i.d., DuoNeb handheld nebulizer therapy. We will follow with you. Anne García MD
--- NOTE | 2018-06-05 18:20 | CARD ---
APPROVED REPORT Date of service: 06/05/2018 INDICATION Cardiomyopathy Congestive Heart Failure SOB PROCEDURE The above named patient recieved 21 millicuries of Tc99m tagged red blood cells intravenously. After achieving equilibrium, gated imaging of 16/frame/cycle was performed utillizing Gamma camera interfaced with a digital computer and gated device. Gated imaging was then performed in the left anterior oblique, anterior, and the left lateral projections. Findings Calculated LV Ejection Fraction is 38%. Impressions Calculated Ejection Fraction is 38 %.
[2018-06-06] MEDS: Albuterol-Ipratrop 3 mg / 0.5 (3 ml) UD IH SCH ×4 (02:30→20:21)
--- NOTE | 2018-06-06 06:56 | CP.PCM.PN ---
Subjective - Date & Time of Evaluation Date of Evaluation: 06/06/18 Time of Evaluation: 06:15 - Subjective Subjective: Awake, no distress, denies shortness of breath, Reason for consultation and follow up: Cardiac evaluation of shortness of breath, history of chronic bronchitis, COPD, emphysema, NIDDM, and sleep apnea, Seen and examined by me and Dr. Clark Objective - Vital Signs/Intake and Output Vital Signs (last 24 hours): Temp Pulse Resp BP Pulse Ox 98.4 F 68 18 157/80 H 98 06/05/18 22:00 06/05/18 22:00 06/05/18 22:00 06/05/18 22:00 06/05/18 22:00 Intake and Output: 06/05/18 06/06/18 18:59 06:59 Intake Total 540 Balance 540 - Medications Medications: Current Medications Albuterol/Ipratropium (Duoneb 3 Mg/0.5 Mg (3 Ml) Ud) 3 ml INH Q4 PRN PRN Reason: Wheezing Last Admin: 06/03/18 13:04 Dose: 3 ml Albuterol/Ipratropium (Duoneb 3 Mg/0.5 Mg (3 Ml) Ud) 3 ml IH [id number] [facility] Last Admin: 06/06/18 02:30 Dose: 3 ml Aspirin (Ecotrin) 81 mg PO DAILY [facility] Last Admin: 06/05/18 10:04 Dose: 81 mg Budesonide (Pulmicort Respules) 0.5 mg IH [id number] [facility] Last Admin: 06/05/18 07:32 Dose: 0.5 mg Docusate Sodium (Colace) 100 mg PO BID [facility] Last Admin: 06/05/18 18:25 Dose: 100 mg Furosemide (Lasix) 40 mg PO DAILY [facility] Last Admin: 06/05/18 10:06 Dose: 40 mg Glipizide (Glucotrol Xl) 5 mg PO BID [facility] Last Admin: 06/05/18 18:26 Dose: 5 mg Levofloxacin/Dextrose (Levaquin 250mg) 250 mg in 50 mls @ 50 mls/hr IVPB DAILY [facility] Magnesium Chloride (Slow-Mag) 64 mg PO DAILY [facility] Last Admin: 06/05/18 10:09 Dose: 64 mg Magnesium Oxide (Mag-Ox) 400 mg PO BID [facility] Last Admin: 06/05/18 18:26 Dose: 400 mg Metformin HCl (Glucophage) 500 mg PO BID [facility] Last Admin: 06/05/18 18:25 Dose: 500 mg Methylprednisolone (Solu-Medrol) 20 mg IVP Q12 [facility] Last Admin: 06/05/18 21:06 Dose: 20 mg Non-Formulary Medication (Brimonidine Tartrate [Alphagan P 0.1 % Oph]) 5 ml BOTHEYES BID [facility] Last Admin: 06/05/18 18:56 Dose: Not Given Non-Formulary Medication (Diclofenac Sodium [Diclofenac Sodium Er]) 100 mg PO DAILY [facility] Last Admin: 06/05/18 09:59 Dose: Not Given Non-Formulary Medication (Multivit-Min/Folic Acid/[id number] [Alive Women's Gummy Vitamins]) 1 each PO DAILY [facility] Last Admin: 06/05/18 09:59 Dose: Not Given Non-Formulary Medication (Bran/Gum/Fib/Rosy/Psyl/Kelp/Pec [Fiber 6 Tablet]) 1,000 mg PO DAILY [facility] Last Admin: 06/05/18 09:58 Dose: Not Given Tobramycin Sulfate (Tobrex 0.3% Oph Oint) 0 appl OS BID [facility] Last Admin: 06/05/18 18:57 Dose: 0.5 inch - Labs Labs: 06/04/18 06:30 06/04/18 06:30 PT 11.7 SECONDS (9.4-12.5) 06/03/18 02:16 INR 1.02 06/03/18 02:16 APTT 33.7 Seconds (25.1-36.5) 06/03/18 02:16 - Constitutional Appears: Non-toxic, No Acute Distress - Head Exam Head Exam: NORMAL INSPECTION, NORMOCEPHALIC - Eye Exam Eye Exam: Normal appearance Pupil Exam: NORMAL ACCOMODATION - ENT Exam ENT Exam: Mucous Membranes Moist, Normal Exam - Respiratory Exam Respiratory Exam: Decreased Breath Sounds, Clear to Ausculation Bilateral, NORMAL BREATHING PATTERN - Cardiovascular Exam Cardiovascular Exam: +S1, +S2 - GI/Abdominal Exam GI & Abdominal Exam: Soft, Normal Bowel Sounds - Extremities Exam Extremities Exam: Full ROM, Normal Capillary Refill - Neurological Exam Neurological Exam: Alert, Awake, Oriented x3 - Psychiatric Exam Psychiatric exam: Normal Affect, Normal Mood - Skin Skin Exam: Normal Color, Warm Assessment and Plan - Assessment and Plan (Free Text) Assessment: A 78 year old female who came in to the ER due to shortness of breath and cough for a week. History of chronic bronchitis, COPD, emphysema, NIDDM, hyperlipidemia,sleep apnea, and non ischemic cardiomyopathy. She used her nebulizer and oxygen at home but no improvement. Cardiac cath on 05/12/17 showed non-obstructive coronary artery disease with an LVEF of 25%-30% consistent with non ischemic cardiomyopathy. History of left knee surgery,ankle surgery,bilateral carpal tunnel surgery and cholecystectomy. Exacerbation of chronic COPD/bronchitis. Hyperkalemia ( mistakenly taking Potassium instead of Lasix). MUGA scan to reevaluate LVEF. If still low EF, will benefit AICD. MUGA scan 38%. Slightly improved from 25-30%. Will closely follow up. Plan: MUGA done and LVEF 38%, slightly improved from 25-30%. Will monitor closely No distress, feels better, Denies shortness of breath Cardiac status stable Heart rate and blood pressure controlled Potassium level normal now after giving Kayexalate yesterday On ASA 81 mg daily,Lasix 40 mg daily,Solumedrol 30 mg every 12 hours, Continue nebulizer treatments Pulmonary on consult Continue current treatment Continue current medications Will follow up Plan and treatment discussed with Dr. Clark
[2018-06-06] MEDS: Budesonide 0.5 mg/2 ml Inhal Susp UD IH SCH ×2 (07:29→20:22)
[2018-06-06 08:29] LABS: ALB/GLOB RATIO 1.3 (1.1-1.8); ALBUMIN 4.2 g/dL (3.0-4.8); CALCIUM 9.8 mg/dL (8.4-10.5)
--- NOTE | 2018-06-06 09:13 | PN ---
DATE: 06/06/2018 SUBJECTIVE: The patient appears very comfortable this morning. She is not short of breath at rest. PHYSICAL EXAMINATION: VITAL SIGNS: (Last noted in the computer): Temperature 98.4, pulse 68, respirations 18, blood pressure 157/80. Oxygen saturation on nasal cannula is 98%. HEENT: Normocephalic, atraumatic. NECK: No JVD. CARDIOVASCULAR: Systolic ejection murmur at the lower left sternal border. No S3 gallop. LUNGS: Minimal/less rhonchi. No wheezing this morning. EXTREMITIES: Mild edema. No cyanosis. No clubbing. Calves are nontender to palpation. GI: Abdomen is soft, nontender and nondistended. Bowel sounds are positive. SKIN: No acute rash. NEUROLOGIC: Exam limited at the present time. IMPRESSION: 1. Acute bronchitis. 2. Advanced chronic obstructive pulmonary disease. 3. Mild respiratory insufficiency. 4. Nonischemic cardiomyopathy. 5. Chronic renal insufficiency. PLAN: The patient appears very comfortable this morning. She is not short of breath at rest. She does state to feeling much better overall. On physical exam, her bronchospasm continues to slowly resolve. In addition, the alveolar-arterial gradient also continues to resolve. I will continue with the current nebulizer treatments and low-dose intravenous steroids (decreased yesterday by Dr. York) for now. The patient also remains on antibiotic therapy. There are no temperatures noted. There is no leukocytosis. Cardiology evaluation is also noted. Clinical status of the patient is significantly improved - compared to the initial presentation. However, given the above, her overall status/prognosis does remain guarded. I will discuss the above with the attending physician. Gonsalo Lawrence MD MTDYashira
[2018-06-06] MEDS: Tobramycin 0.3% OPH OINT OS SCH ×2 (10:00→17:28)
[2018-06-06] MEDS: GlipiZIDE 5 mg SR Tab PO SCH ×2 (10:04→17:25)
[2018-06-06] MEDS: levoFLOXacin 250 mg in D5W 250 MG/50 ML BAG IVPB SCH (10:04)
[2018-06-06] MEDS: Magnesium Chloride 64 mg ER Tab PO SCH (10:05)
[2018-06-06] MEDS: Magnesium Oxide 400 mg Tab UD PO SCH ×2 (10:05→17:25)
[2018-06-06] MEDS: MethylPREDNISolone 40 mg Vial IVP SCH ×2 (10:05→21:30)
[2018-06-06] MEDS: [UNRECOGNIZED DRUG - OTHER] PO SCH (10:06)
[2018-06-06] MEDS: BRIMONIDINE TARTRATE BOTHEYES SCH ×2 (10:07→17:20)
--- NOTE | 2018-06-06 17:35 | PN ---
DATE: 06/06/2018 REASON FOR CONSULTATION: Followup, cardiac evaluation, shortness of breath, history of COPD, emphysema, NIDDM, and sleep apnea. SUBJECTIVE: The patient denied any chest pain, shortness of breath, any palpitation. This note in addition dictated by nurse practitioner, Estrella Sanz APN. IMPRESSION: In summary, this is a 78-year-old female with past medical history of significant for nonobstructive coronary artery disease, status post cardiac evaluation on 05/12/2017, his EF is 25% to 30% and nonischemic cardiomyopathy. Yesterday, the patient underwent MUGA scan that revealed a 38%; improved from 25% to 30%. The patient does not need AICD. RECOMMENDATION: Continue aspirin. Continue Lasix. Consider low dose of Coreg and low dose of ARB because of renal insufficiency. We will follow with you. Thank you, Dr. York for providing us the opportunity in taking care of the patient, Jazmyn Coates. As mentioned, the patient does not need defibrillator, but we will add Coreg and ARB inhibitors for ventricular remodeling. Follow up electrolytes and repeat the lab in a day or two. CVS status is stable. Continue p.o. Lasix. Supplement electrolytes as needed. Anne Clark MD
[2018-06-07] MEDS: Albuterol-Ipratrop 3 mg / 0.5 (3 ml) UD IH SCH ×4 (01:29→19:17)
--- NOTE | 2018-06-07 03:15 | PN ---
DATE: 06/06/2018 SUBJECTIVE: The patient was seen this Tuesday in room 566, bed 2. She is awake, alert, clear, in good spirits. Feeling much better than at the time of admission, breathing much more easily. PHYSICAL EXAMINATION: HEENT: Head and neck unremarkable. Conjunctivae are pink. LUNGS: Show good aeration right and left with minimal wheezing. No rales or rhonchi. HEART: Regular and not tachycardic. IMPRESSION: 1. Exacerbation of chronic obstructive pulmonary disease. 2. Asthma. 3. History of chronic heart failure. PLAN: The patient is doing well. Steroids are being tapered. She is looking forward to discharge on as has been laid out to her by case management. IV steroids are being tapered per Pulmonary. We will continue to follow closely. Diet, exercise, activity, weight loss, ambulation was reviewed with the patient. Rickey York MD
--- NOTE | 2018-06-07 06:55 | CP.PCM.PN ---
Subjective - Date & Time of Evaluation Date of Evaluation: 06/07/18 Time of Evaluation: 06:35 - Subjective Subjective: Watching TV, Awake, no distress, denies shortness of breath, Reason for consultation and follow up: Cardiac evaluation of shortness of breath, history of chronic bronchitis, COPD, emphysema, NIDDM, and sleep apnea, Seen and examined by me and Dr. Clark Objective - Vital Signs/Intake and Output Vital Signs (last 24 hours): Temp Pulse Resp BP Pulse Ox 98.4 F 62 18 124/57 L 94 L 06/06/18 22:33 06/06/18 22:33 06/06/18 22:33 06/06/18 22:33 06/06/18 22:33 Intake and Output: 06/06/18 06/07/18 18:59 06:59 Intake Total 180 Balance 180 - Medications Medications: Current Medications Albuterol/Ipratropium (Duoneb 3 Mg/0.5 Mg (3 Ml) Ud) 3 ml INH Q4 PRN PRN Reason: Wheezing Last Admin: 06/03/18 13:04 Dose: 3 ml Albuterol/Ipratropium (Duoneb 3 Mg/0.5 Mg (3 Ml) Ud) 3 ml IH [id number] [facility] Last Admin: 06/07/18 01:29 Dose: 3 ml Aspirin (Ecotrin) 81 mg PO DAILY [facility] Last Admin: 06/06/18 10:03 Dose: 81 mg Budesonide (Pulmicort Respules) 0.5 mg IH [id number] [facility] Last Admin: 06/06/18 20:22 Dose: 0.5 mg Carvedilol (Coreg) 3.125 mg PO BID [facility] Last Admin: 06/06/18 17:24 Dose: 3.125 mg Docusate Sodium (Colace) 100 mg PO BID [facility] Last Admin: 06/06/18 17:23 Dose: 100 mg Furosemide (Lasix) 40 mg PO DAILY [facility] Last Admin: 06/06/18 10:04 Dose: 40 mg Glipizide (Glucotrol Xl) 5 mg PO BID [facility] Last Admin: 06/06/18 17:25 Dose: 5 mg Levofloxacin/Dextrose (Levaquin 250mg) 250 mg in 50 mls @ 50 mls/hr IVPB DAILY [facility] Last Admin: 06/06/18 10:04 Dose: 50 mls/hr Losartan Potassium (Cozaar) 25 mg PO DAILY [facility] Magnesium Chloride (Slow-Mag) 64 mg PO DAILY [facility] Last Admin: 06/06/18 10:05 Dose: 64 mg Magnesium Oxide (Mag-Ox) 400 mg PO BID [facility] Last Admin: 06/06/18 17:25 Dose: 400 mg Metformin HCl (Glucophage) 500 mg PO BID [facility] Last Admin: 06/06/18 17:25 Dose: 500 mg Methylprednisolone (Solu-Medrol) 20 mg IVP Q12 [facility] Last Admin: 06/06/18 21:30 Dose: 20 mg Non-Formulary Medication (Brimonidine Tartrate [Alphagan P 0.1 % Ophth]) 5 ml BOTHEYES BID [facility] Last Admin: 06/06/18 17:20 Dose: Not Given Non-Formulary Medication (Diclofenac Sodium [Diclofenac Sodium Er]) 100 mg PO DAILY [facility] Last Admin: 06/06/18 10:07 Dose: Not Given Non-Formulary Medication (Multivit-Min/Folic Acid/[id number] [Alive Women's Gummy Vitamins]) 1 each PO DAILY [facility] Last Admin: 06/06/18 10:27 Dose: Not Given Non-Formulary Medication (Bran/Gum/Fib/Rosy/Psyl/Kelp/Pec [Fiber 6 Tablet]) 1,000 mg PO DAILY [facility] Last Admin: 06/06/18 10:06 Dose: Not Given Tobramycin Sulfate (Tobrex 0.3% Ophth Oint) 0 appl OS BID [facility] Last Admin: 06/06/18 17:28 Dose: 1 inch - Labs Labs: 06/04/18 06:30 06/06/18 08:00 PT 11.7 SECONDS (9.4-12.5) 06/03/18 02:16 INR 1.02 06/03/18 02:16 APTT 33.7 Seconds (25.1-36.5) 06/03/18 02:16 - Constitutional Appears: Non-toxic, No Acute Distress - Head Exam Head Exam: NORMAL INSPECTION, NORMOCEPHALIC - Eye Exam Eye Exam: Normal appearance Pupil Exam: NORMAL ACCOMODATION - Respiratory Exam Respiratory Exam: Decreased Breath Sounds, NORMAL BREATHING PATTERN - Cardiovascular Exam Cardiovascular Exam: +S1, +S2 Additional comments: No JVD - GI/Abdominal Exam GI & Abdominal Exam: Soft, Normal Bowel Sounds - Extremities Exam Extremities Exam: Full ROM, Normal Capillary Refill - Neurological Exam Neurological Exam: Alert, Awake, Oriented x3 - Psychiatric Exam Psychiatric exam: Normal Affect, Normal Mood - Skin Skin Exam: Dry, Normal Color, Warm Assessment and Plan - Assessment and Plan (Free Text) Assessment: A 78 year old female who came in to the ER due to shortness of breath and cough for a week. History of chronic bronchitis, COPD, emphysema, NIDDM, hyperlipidemia,sleep apnea, and non ischemic cardiomyopathy. She used her nebulizer and oxygen at home but no improvement. Cardiac cath on 05/12/17 showed non-obstructive coronary artery disease with an LVEF of 25%-30% consistent with non ischemic cardiomyopathy. History of left knee surgery,ankle surgery,bilateral carpal tunnel surgery and cholecystectomy. Exacerbation of chronic COPD/bronchitis. Hyperkalemia ( mistakenly taking Potassium instead of Lasix). MUGA scan to reevaluate LVEF. MUGA scan 38%. Slightly improved from 25-30%. Will closely follow up.No need for AICD for now. Plan: Feels good, ambulating No distress Denies shortness of breath Cardiac status stable Heart rate and blood pressure controlled On ASA 81 mg daily,Lasix 40 mg daily,Solumedrol 30 mg every 12 hours, Coreg 3.125 mg BID,Cozaar 25 mg daily. Added Coreg and Cozaar Continue nebulizer treatments Pulmonary on consult Continue current treatment Continue current medications Discharge planning Will follow up Plan and treatment discussed with Dr. Clark
[2018-06-07] MEDS: Budesonide 0.5 mg/2 ml Inhal Susp UD IH SCH ×2 (07:29→19:17)
--- NOTE | 2018-06-07 08:21 | PN ---
DATE: 06/07/2018 SUBJECTIVE: The patient appears comfortable this morning. She is not short of breath at rest. PHYSICAL EXAMINATION: VITAL SIGNS: (Last noted in the computer): Temperature 98.4, pulse 62, respirations 18, blood pressure 124/57. Oxygen saturation on room air is 94%. Oxygen saturation on nasal cannula is 96-98%. HEENT: Normocephalic, atraumatic. NECK: No JVD. CARDIOVASCULAR: Systolic ejection murmur at the lower left sternal border. No S3 gallop. LUNGS: Less rhonchi. No wheezing this morning. EXTREMITIES: Mild edema. No cyanosis. No clubbing. Calves are nontender to palpation. GI: Abdomen is soft, nontender and nondistended. Bowel sounds are positive. SKIN: No acute rash. NEUROLOGIC: Exam limited at the present time. IMPRESSION: 1. Acute bronchitis. 2. Advanced chronic obstructive pulmonary disease. 3. Mild respiratory insufficiency. 4. Nonischemic cardiomyopathy. 5. Chronic renal insufficiency. PLAN: The patient appears comfortable this morning. She is not short of breath at rest. She does state to feeling much, much better overall. She is, however, still mildly dyspneic on exertion. On physical exam, her bronchospasm is definitely less. In addition, the alveolar-arterial gradient is also less. I will continue with the current nebulizer treatments and intravenous steroids for now. Hopefully, I can change to oral therapy in the next 24-48 hours. Clinical status of the patient is significantly improved - compared to the initial presentation. However, given the above, her future status/prognosis does remain somewhat guarded. I will discuss the above with the attending physician. Gonsalo Lawrence MD MTD[facility]ashira
[2018-06-07] MEDS: [UNRECOGNIZED DRUG - OTHER] PO SCH (09:20)
[2018-06-07] MEDS: MethylPREDNISolone 40 mg Vial IVP SCH (09:20)
[2018-06-07] MEDS: Magnesium Chloride 64 mg ER Tab PO SCH (09:20)
[2018-06-07] MEDS: BRIMONIDINE TARTRATE BOTHEYES SCH ×2 (09:21→18:26)
[2018-06-07] MEDS: levoFLOXacin 250 mg in D5W 250 MG/50 ML BAG IVPB SCH (09:24)
[2018-06-07] MEDS: GlipiZIDE 5 mg SR Tab PO SCH ×2 (09:24→18:31)
[2018-06-07] MEDS: Magnesium Oxide 400 mg Tab UD PO SCH ×2 (09:25→18:31)
[2018-06-07] MEDS: Tobramycin 0.3% OPH OINT OS SCH ×2 (09:28→18:31)
--- NOTE | 2018-06-07 13:14 | CP.PCM.APN ---
Subjective - Date & Time of Evaluation Date of Evaluation: 06/07/18 Time of Evaluation: 11:20 - Subjective Subjective: pt seenan exmiend at bedside pt not wearnig o2, sttes she uses prn, denies sob, states plan is for home in am per her pmd ROS negative Review of Systems - Constitutional Constitutional: absent: As Per HPI, Anorexia, Chills, Daytime Sleepiness, Excessive Sweating, Fatigue, Fever, Frequent Falls, Headache, Increased Appetite, Lethargy, Malaise, Night Sweats, Snoring, Sleep Apnea, Weight Gain, Weight Loss, Weakness, Other Objective - Vital Signs/Intake and Output Vital Signs (last 24 hours): Temp Pulse Resp BP Pulse Ox 98.3 F 63 18 131/63 92 L 06/07/18 06:00 06/07/18 09:23 06/07/18 06:00 06/07/18 09:24 06/07/18 06:00 Intake and Output: 06/07/18 06/07/18 06:59 18:59 Intake Total 180 Balance 180 - Medications Medications: Current Medications Albuterol/Ipratropium (Duoneb 3 Mg/0.5 Mg (3 Ml) Ud) 3 ml INH Q4 PRN PRN Reason: Wheezing Last Admin: 06/03/18 13:04 Dose: 3 ml Albuterol/Ipratropium (Duoneb 3 Mg/0.5 Mg (3 Ml) Ud) 3 ml IH [id number] [facility] Last Admin: 06/07/18 07:25 Dose: 3 ml Aspirin (Ecotrin) 81 mg PO DAILY [facility] Last Admin: 06/07/18 09:23 Dose: 81 mg Budesonide (Pulmicort Respules) 0.5 mg IH [id number] [facility] Last Admin: 06/07/18 07:29 Dose: 0.5 mg Carvedilol (Coreg) 3.125 mg PO BID [facility] Last Admin: 06/07/18 09:22 Dose: 3.125 mg Docusate Sodium (Colace) 100 mg PO BID [facility] Last Admin: 06/07/18 09:21 Dose: 100 mg Furosemide (Lasix) 20 mg PO DAILY [facility] Last Admin: 06/07/18 09:24 Dose: 20 mg Glipizide (Glucotrol Xl) 5 mg PO BID [facility] Last Admin: 06/07/18 09:24 Dose: 5 mg Levofloxacin/Dextrose (Levaquin 250mg) 250 mg in 50 mls @ 50 mls/hr IVPB DAILY [facility] Last Admin: 06/07/18 09:24 Dose: 50 mls/hr Losartan Potassium (Cozaar) 25 mg PO DAILY [facility] Last Admin: 06/07/18 09:23 Dose: 25 mg Magnesium Chloride (Slow-Mag) 64 mg PO DAILY [facility] Last Admin: 06/07/18 09:20 Dose: 64 mg Magnesium Oxide (Mag-Ox) 400 mg PO BID [facility] Last Admin: 06/07/18 09:25 Dose: 400 mg Metformin HCl (Glucophage) 500 mg PO BID [facility] Last Admin: 06/07/18 09:25 Dose: 500 mg Methylprednisolone (Medrol) 4 mg PO TID [facility] Non-Formulary Medication (Brimonidine Tartrate [Alphagan P 0.1 % Oph]) 5 ml BOTHEYES BID [facility] Last Admin: 06/07/18 09:21 Dose: Not Given Non-Formulary Medication (Diclofenac Sodium [Diclofenac Sodium Er]) 100 mg PO DAILY [facility] Last Admin: 06/07/18 09:23 Dose: Not Given Non-Formulary Medication (Multivit-Min/Folic Acid/[id number] [Alive Women's Gummy Vitamins]) 1 each PO DAILY [facility] Last Admin: 06/06/18 10:27 Dose: Not Given Non-Formulary Medication (Bran/Gum/Fib/Rosy/Psyl/Kelp/Pec [Fiber 6 Tablet]) 1,000 mg PO DAILY [facility] Last Admin: 06/07/18 09:20 Dose: Not Given Tobramycin Sulfate (Tobrex 0.3% Ophth Oint) 0 appl OS BID [facility] Last Admin: 06/07/18 09:28 Dose: 1 inch - Labs Labs: 06/04/18 06:30 06/06/18 08:00 PT 11.7 SECONDS (9.4-12.5) 06/03/18 02:16 INR 1.02 06/03/18 02:16 APTT 33.7 Seconds (25.1-36.5) 06/03/18 02:16 - Constitutional Appears: Well, No Acute Distress - Head Exam Head Exam: NORMAL INSPECTION, NORMOCEPHALIC - Eye Exam Eye Exam: Normal appearance, PERRL Assessment and Plan - Assessment and Plan (Free Text) Plan: Microbiology 06/03/18 19:40 Blood-Venous Blood Culture - Preliminary NO GROWTH AFTER 3 DAYS Current Active Problems Problem Status Onset COPD exacerbation Acute Congestive heart failure Acute A/P 78 yr old while female with pmh sig for copd on home O2, admit with complaints of sob and cough, now being seen by pulmonary Dr Myles and cardiology Dr García treated for acute bronchitis, acute diastolic chf on IV antibiotics and iv steriods being tapered. Pt had MUGA that showed EF of 38% pt is now off telelmetry on medical floor cm notes rev;d. pt notes rev'd recs are for home with services dr myles notes rev'd per discussion with pt and pmd plan is for dc home in am Will follow Amada Connell
[2018-06-08] MEDS: Albuterol-Ipratrop 3 mg / 0.5 (3 ml) UD IH SCH ×5 (01:41→20:01)
--- NOTE | 2018-06-08 07:20 | PN ---
DATE: 06/08/2018 PULMONARY NOTE SUBJECTIVE: The patient appears very comfortable this morning. She is not short of breath at rest. PHYSICAL EXAMINATION: VITALS: (Last noted in the computer): Temperature is 99, pulse 68, respirations 18/20, blood pressure 149/59. Oxygen saturation on room air is 95%. HEENT: Normocephalic, atraumatic. No JVD. CARDIOVASCULAR: Systolic ejection murmur at the lower left sternal border. No S3 gallop. LUNGS: Clear bilaterally this morning. EXTREMITIES: Mild edema. No cyanosis, no clubbing. Calves are nontender to palpation. GASTROINTESTINAL: Abdomen is soft, nontender, and nondistended. Bowel sounds are positive. SKIN: No acute rash. NEUROLOGIC: Limited at the present time. IMPRESSION: 1. Acute bronchitis. 2. Advanced chronic obstructive pulmonary disease. 3. Mild respiratory insufficiency. 4. Nonischemic cardiomyopathy. 5. Chronic renal insufficiency. PLAN: The patient appears very comfortable this morning. She is not short of breath at rest. She is much less dyspneic on exertion. She does state to feeling much better overall. On physical exam, her lungs are now clear. In addition, the oxygen saturation on room air is now 95%. I would continue with the current nebulizer treatments and oral steroids (changed yesterday by Dr. York) for now. The patient also remains on oral Levaquin. Clinical status of the patient is significantly improved - compared to the initial presentation. However, given the above, her future status/prognosis does remain somewhat guarded. The patient is for discharge in the near future. I will discuss the above with the attending physician. Gonsalo Lawrence MD [facility]
--- NOTE | 2018-06-08 07:29 | CP.PCM.PN ---
Subjective - Date & Time of Evaluation Date of Evaluation: 06/08/18 Time of Evaluation: 06:35 - Subjective Subjective: Awake, no distress, denies shortness of breath,ambulating with cane to bathroom Reason for consultation and follow up: Cardiac evaluation of shortness of breath, history of chronic bronchitis, COPD, emphysema, NIDDM, and sleep apnea, Seen and examined by me and Dr. García Objective - Vital Signs/Intake and Output Vital Signs (last 24 hours): Temp Pulse Resp BP Pulse Ox 99 F 68 20 149/59 L 95 06/07/18 22:09 06/07/18 22:09 06/07/18 22:09 06/07/18 22:09 06/07/18 22:09 - Medications Medications: Current Medications Albuterol/Ipratropium (Duoneb 3 Mg/0.5 Mg (3 Ml) Ud) 3 ml INH Q4 PRN PRN Reason: Wheezing Last Admin: 06/03/18 13:04 Dose: 3 ml Albuterol/Ipratropium (Duoneb 3 Mg/0.5 Mg (3 Ml) Ud) 3 ml IH [id number] [facility] Last Admin: 06/08/18 01:41 Dose: 3 ml Aspirin (Ecotrin) 81 mg PO DAILY [facility] Last Admin: 06/07/18 09:23 Dose: 81 mg Budesonide (Pulmicort Respules) 0.5 mg IH [id number] [facility] Last Admin: 06/07/18 19:17 Dose: 0.5 mg Carvedilol (Coreg) 3.125 mg PO BID [facility] Last Admin: 06/07/18 18:30 Dose: 3.125 mg Docusate Sodium (Colace) 100 mg PO BID [facility] Last Admin: 06/07/18 18:30 Dose: 100 mg Furosemide (Lasix) 20 mg PO DAILY [facility] Last Admin: 06/07/18 09:24 Dose: 20 mg Glipizide (Glucotrol Xl) 5 mg PO BID [facility] Last Admin: 06/07/18 18:31 Dose: 5 mg Levofloxacin (Levaquin) 250 mg PO DAILY [facility] Losartan Potassium (Cozaar) 25 mg PO DAILY [facility] Last Admin: 06/07/18 09:23 Dose: 25 mg Magnesium Chloride (Slow-Mag) 64 mg PO DAILY [facility] Last Admin: 12/12/18 09:20 Dose: 64 mg Magnesium Oxide (Mag-Ox) 400 mg PO BID [facility] Last Admin: 06/07/18 18:31 Dose: 400 mg Metformin HCl (Glucophage) 500 mg PO BID [facility] Last Admin: 06/07/18 18:31 Dose: 500 mg Methylprednisolone (Medrol) 4 mg PO TID [facility] Last Admin: 06/07/18 18:31 Dose: 4 mg Non-Formulary Medication (Brimonidine Tartrate [Alphagan P 0.1 % Ophth]) 5 ml BOTHEYES BID [facility] Last Admin: 06/07/18 18:26 Dose: Not Given Non-Formulary Medication (Diclofenac Sodium [Diclofenac Sodium Er]) 100 mg PO DAILY [facility] Last Admin: 06/07/18 09:23 Dose: Not Given Non-Formulary Medication (Multivit-Min/Folic Acid/Cmb563 [Alive Women's Gummy Vitamins]) 1 each PO DAILY [facility] Last Admin: 06/07/18 14:06 Dose: Not Given Non-Formulary Medication (Bran/Gum/Fib/Rosy/Psyl/Kelp/Pec [Fiber 6 Tablet]) 1,000 mg PO DAILY [facility] Last Admin: 06/07/18 09:20 Dose: Not Given Tobramycin Sulfate (Tobrex 0.3% Ophth Oint) 0 appl OS BID [facility] Last Admin: 06/07/18 18:31 Dose: 1 inch - Labs Labs: 06/04/18 06:30 18 08:00 PT 11.7 SECONDS (9.4-12.5) 06/03/18 02:16 INR 1.02 06/03/18 02:16 APTT 33.7 Seconds (25.1-36.5) 06/03/18 02:16 - Constitutional Appears: Non-toxic, No Acute Distress - Head Exam Head Exam: NORMAL INSPECTION, NORMOCEPHALIC - Eye Exam Eye Exam: Normal appearance Pupil Exam: NORMAL ACCOMODATION - ENT Exam ENT Exam: Mucous Membranes Moist, Normal Exam - Respiratory Exam Respiratory Exam: Decreased Breath Sounds, Clear to Ausculation Bilateral, NORMAL BREATHING PATTERN - Cardiovascular Exam Cardiovascular Exam: +S1, +S2 - GI/Abdominal Exam GI & Abdominal Exam: Soft, Normal Bowel Sounds - Extremities Exam Extremities Exam: Full ROM, Normal Capillary Refill - Neurological Exam Neurological Exam: Alert, Awake, Oriented x3 - Psychiatric Exam Psychiatric exam: Normal Affect, Normal Mood - Skin Skin Exam: Dry, Normal Color, Warm Assessment and Plan - Assessment and Plan (Free Text) Assessment: A 78 year old female who came in to the ER due to shortness of breath and cough for a week. History of chronic bronchitis, COPD, emphysema, NIDDM, hyperlipide drew,sleep apnea, and non ischemic cardiomyopathy. She used her nebulizer and oxygen at home but no improvement. Cardiac cath on 05/12/17 showed non- obstructive coronary artery disease with an LVEF of 25%-30% consistent with non ischemic cardiomyopathy. History of left knee surgery,ankle surgery,bilateral carpal tunnel surgery and cholecystectomy. Exacerbation of chronic COPD/bronchitis. Hyperkalemia ( mistakenly taking Potassium instead of Lasix). MUGA scan to reevaluate LVEF. MUGA scan 38%. S lightly improved from 25-30%. Will closely follow up. No need for AICD for now. Ambulating, clinically improved. Plan: Clinically improved Feels good, ambulating,No distress Denies shortness of breath Cardiac status stable Heart rate and blood pressure controlled On ASA 81 mg daily,Lasix 40 mg daily,Solumedrol 30 mg every 12 hours, Coreg 3.125 mg BID,Cozaar 25 mg daily. Continue current treatment Continue current medications May discharge from cardiac standpoint, follow up in office 1-2 weeks Possible discharge today Will follow up Plan and treatment discussed with Dr. García
[2018-06-08] MEDS ORDERED: Dextrose 50% SYRINGE Inj (50 ml) IVP ONE (08:04)
[2018-06-08] MEDS ORDERED: Dextrose 50% SYRINGE Inj (50 ml) ONE (08:04)
[2018-06-08] MEDS: Budesonide 0.5 mg/2 ml Inhal Susp UD IH SCH ×2 (08:04→20:02)
--- NOTE | 2018-06-08 08:21 | PN ---
DATE: 06/07/2018 LOCATION: The patient is in room 566, bed 2. The patient has known COPD, CHF, and cardiomyopathy. Admitted with shortness of breath, but at this time shortness of breath was related to exacerbation of COPD. The patient clinically did not have CHF at present. The patient is improving with therapy. Previously, the patient on cardiac cath had ejection fraction of 25-30%. It was decided to repeat evaluation of ejection fraction in 3 to 6 months. So the patient did MUGA scan repeat on this admission that showed slight improvement, now ejection fraction is 38%. At present, the patient does not meet the criteria to put AICD, so we will continue this medical therapy and we will continue to follow closely with you. Anne García MD
[2018-06-08] MEDS: Magnesium Oxide 400 mg Tab UD PO SCH (10:43)
[2018-06-08] MEDS: Magnesium Chloride 64 mg ER Tab PO SCH (10:43)
[2018-06-08] MEDS: GlipiZIDE 5 mg SR Tab PO SCH (10:45)
[2018-06-08] MEDS: Tobramycin 0.3% OPH OINT OS SCH ×2 (10:47→17:44)
[2018-06-08 15:49] VITALS: BP 132/69; PULSE 69; RESP 18; TEMP 97.7; O2SAT 96
--- NOTE | 2018-06-09 08:19 | PN ---
DATE: 06/08/2018 LOCATION: She is in room 566, bed 2. Progress note detail has been already written by Estrella Sanz APN, this is addendum to that progress note. The patient known COPD and CHF with LV dysfunction who was admitted with shortness of breath, cough, and was found to have exacerbation of COPD and the patient's CHF was under control. The patient's previous cath had showed ejection fraction of 25% to 30%, so it was advised to followup on ejection fraction in 3 to 6 months, but the patient did not followup on that, so we did MUGA scan on this admission which showed ejection fraction 38%, so the patient is not a candidate for AICD insertion at present time. We will continue medical therapy of COPD as well as CHF and the patient is clinically improving and we will follow with you. Anne García MD
== END 2018-06-08 20:13 | disposition home or self-care (01) | DRG 191 ==
LOC: ED 01:55 → ERH 04:09 → 2RSO 05:08 → 5RNO 06-05 17:52
PROVIDERS: ADMIT Internal Medicine; ATTEND Internal Medicine
PROC: 3E0F7GC Introduction of Other Therapeutic Substance into Respiratory Tract, Via Natural or Artificial Opening (ICD-10-PCS; principal; 2018-06-03)
DX: J44.1 Chronic obstructive pulmonary disease with (acute) exacerbation (principal); I13.0 Hypertensive heart and chronic kidney disease with heart failure and stage 1 through stage 4 chronic kidney disease, or unspecified chronic kidney disease; I50.22 Chronic systolic (congestive) heart failure; I42.9 Cardiomyopathy, unspecified; J44.0 Chronic obstructive pulmonary disease with (acute) lower respiratory infection; J20.9 Acute bronchitis, unspecified; G47.33 Obstructive sleep apnea (adult) (pediatric); N18.9 Chronic kidney disease, unspecified; E11.22 Type 2 diabetes mellitus with diabetic chronic kidney disease; I25.10 Atherosclerotic heart disease of native coronary artery without angina pectoris; E78.5 Hyperlipidemia, unspecified; D64.9 Anemia, unspecified; Z99.81 Dependence on supplemental oxygen; T50.3X1A Poisoning by electrolytic, caloric and water-balance agents, accidental (unintentional), initial encounter; E87.5 Hyperkalemia; E66.9 Obesity, unspecified; Z68.27 Body mass index [BMI] 27.0-27.9, adult; H91.93 Unspecified hearing loss, bilateral; Z79.84 Long term (current) use of oral hypoglycemic drugs; Z91.19 Patient's noncompliance with other medical treatment and regimen; Z97.4 Presence of external hearing-aid; Z96.652 Presence of left artificial knee joint

== ENCOUNTER 2018-07-07 08:36 | Day surgery (SDC) | payer MEDICARE, BC ==
[2018-07-05 10:22] VITALS: BMI 29.0
[2018-07-07] MEDS ORDERED: Propofol 10 mg/ml Inj (20 ML) ONE (10:09)
[2018-07-07] MEDS ORDERED: Sodium Chloride 0.9% 1,000 ML IV SCH (10:15)
[2018-07-07 12:33] VITALS: BP 136/54; PULSE 66; RESP 18; TEMP 98; O2SAT 97
== END 2018-07-07 13:15 | disposition home or self-care (01) ==
LOC: ENDO 08:36
PROVIDERS: ATTEND Internal Medicine Gastroenterology
DX: K22.10 Ulcer of esophagus without bleeding (principal); K29.50 Unspecified chronic gastritis without bleeding; K26.9 Duodenal ulcer, unspecified as acute or chronic, without hemorrhage or perforation; E11.9 Type 2 diabetes mellitus without complications; J44.9 Chronic obstructive pulmonary disease, unspecified
CPT/HCPCS: 43239; 88305; 88312; 88342; J2001; J2704; J7030; J7040

== ENCOUNTER 2018-08-15 18:06 | Inpatient (IN) | payer MEDICARE, BC ==
[2018-08-15] MEDS ORDERED: Albuterol-Ipratrop 3 mg / 0.5 (3 ml) UD IH STA ×2 (18:51→19:51)
--- NOTE | 2018-08-15 19:01 | ED PDOC ---
Arrival/HPI - General Chief Complaint: Shortness Of Breath Time Seen by Provider: 08/15/18 18:16 Historian: Patient - History of Present Illness Narrative History of Present Illness (Text): 08/15/18 18:57 78F w/ a PMH of COPD on 2L Home O2 at night, CHF, T2DM presenting today w/ complaints of shortness of breath. Patient reported that last night she went ot bed w/ her usual 2L NC and awoke at 3AM w/ shortness of breath and wheezing; patient administered duonebs via nebulizer which improve some of her symptomatology. She continued w/ shortness of breath and breathing treatments throughout the day at 2-4 hour intervals and home O2; placed call to her human service worker Dr. Paiz who recommended she come to Emergency department. Patient denied any fever, chills, cough, chest pain, abd pain, n/v/d/c. Past Medical History - Provider Review Nursing Documentation Reviewed: Yes - Past History Past History: Non-Contributing - Infectious Disease Hx of Infectious Diseases: None - Tetanus Immunization Tetanus Immunization: Unknown - Reproductive Menopause: Yes - Past Medical History Past Medical History: Non-Contributing - Cardiac Hx Hypertension: Yes Hx Pacemaker: No - Pulmonary Hx Chronic Obstructive Pulmonary Disease (COPD): Yes Hx Sleep Apnea: Yes - Neurological Hx Neurological Disorder: No Hx Paralysis: No - HEENT Hx HEENT Disorder: Yes Hx Cataracts: Yes (b/l) Hx Deafness: Yes (b/l hearing aids) - Renal Hx Renal Disorder: No - Endocrine/Metabolic Hx Diabetes Mellitus Type 2: Yes - Hematological/Oncological Hx Blood Transfusions: (PT UNSURE) Hx Blood Transfusion Reaction: (UNKNOWN) - Integumentary Hx Dermatological Disorder: No - Musculoskeletal/Rheumatological Hx Musculoskeletal Disorders: Yes (CARPAL TUNNEL SX BILATERAL HAND.L KNEE REPLACEMENT,L ARM FX,R KNEE ACHILLES) - Gastrointestinal Hx Gastrointestinal Disorders: No - Genitourinary/Gynecological Hx Urinary Tract Infection: Yes - Psychiatric Hx Emotional Abuse: No Hx Physical Abuse: No Hx Substance Use: No - Surgical History Hx Joint Replacement: Yes - Anesthesia Hx Anesthesia Reactions: No Hx Malignant Hyperthermia: No - Suicidal Assessment Feels Threatened In Home Enviroment: No Family/Social History - Physician Review Nursing Documentation Reviewed: Yes Family/Social History: Unknown Family HX Smoking Status: Never Smoked Hx Alcohol Use: No Hx Substance Use: No Hx Substance Use Treatment: No Allergies/Home Meds Allergies/Adverse Reactions: Allergies ampicillin Allergy (Verified 06/03/18 02:00) ANAPHYLAXIS Penicillins Allergy (Verified 06/03/18 02:00) ANAPHYLAXIS pregabalin [From Lyrica] Allergy (Verified 06/03/18 02:00) RASH Home Medications: Home Meds Medication Instructions Recorded Confirmed Albuterol/Ipratropium [Duoneb 3 3 ml IN Q4 PRN 11/14/17 07/07/18 mg/0.5 mg (3 ml) UD] Furosemide [Lasix] 40 mg PO BID 11/14/17 07/07/18 Aspirin [Schoolcraft Aspirin] 81 mg PO DAILY 07/05/18 07/07/18 Brinzolamide/Brimonidine Tart 1 drop BOTHEYES BID 07/05/18 07/07/18 [Simbrinza 0.2%-1% 8 ml] Home O2 2l At Hs 2 l INH HS 07/05/18 07/05/18 Multivitamin [Multivitamins] 1 each PO DAILY 07/05/18 07/07/18 Propylene Glycol/Peg 400/Pf 1 each RIGHTEYE BID 07/05/18 07/07/18 [Systane 0.3-0.4% Eye Drops] Tobramycin 0.3% [Tobramycin 5 Ml] 1 drop RIGHTEYE BID 07/05/18 07/07/18 predniSONE [Prednisone] 10 mg PO DAILY 07/05/18 07/07/18 Omeprazole 40 mg PO DAILY 07/07/18 07/07/18 Review of Systems - Physician Review All systems were reviewed & negative as marked: Yes - Review of Systems Constitutional: Normal. absent: Fevers Respiratory: SOB, Wheezing. absent: Cough, Sputum Cardiovascular: absent: Chest Pain, Palpitations, Edema, Orthopnea Gastrointestinal: Normal. absent: Abdominal Pain, Constipation, Diarrhea, Nausea, Vomiting Genitourinary Female: Normal Musculoskeletal: Normal Skin: Normal Neurological: Normal Endocrine: Normal Hemo/Lymphatic: Normal Psychiatric: Normal Physical Exam Vital Signs Reviewed: Yes Temperature: Afebrile Blood Pressure: Normal Pulse: Regular Respiratory Rate: Normal Appearance: Positive for: Non-Toxic, Comfortable Pain Distress: None Mental Status: Positive for: Alert and Oriented X 3 - Systems Exam Head: Present: Atraumatic, Normocephalic Pupils: Present: PERRL Extroacular Muscles: Present: EOMI Mouth: Present: Moist Mucous Membranes Respiratory/Chest: Present: Wheezes Cardiovascular: Present: Regular Rate and Rhythm, Normal S1, S2. No: Murmurs Abdomen: Present: Normal Bowel Sounds. No: Tenderness, Distention Upper Extremity: No: Edema Lower Extremity: Present: Edema (trace non pitting) Neurological: Present: GCS=15, CN II-XII Intact Skin: Present: Warm, Dry, Normal Color. No: Rashes Psychiatric: Present: Alert, Oriented x 3 Medical Decision Making ED Course and Treatment: 08/15/18 19:31 Impression: 78F w/ a PMH of COPD on 2L Home O2 at night, CHF, T2DM presenting for complaints of shortness breath + wheezing. Most likely COPD exacerbation - etiology unknown Plan: CBC/ CMP EKG CXR DUONEB BNP TROP Progress Notes: EKG - NSR 69/min no St/T wave abnormalities 08/15/18 21:19 Patient given repeat duonebs still continues to wheeze Case was endorsed to Dr. York who accepts patient to his service - RAD Interpretation Radiology Orders: 08/15/18 18:50 CHEST PORTABLE [RAD] Stat - EKG Interpretation EKG Interpretation (Text): 08/15/18 21:42 EKG - NSR 69/min no St/T wave abnormalities Interpreted by ED Physician: Yes Type: 12 lead EKG - Medication Orders Current Medication Orders: Discontinued Medications Albuterol/Ipratropium (Duoneb 3 Mg/0.5 Mg (3 Ml) Ud) 3 ml IH STAT STA Stop: 08/15/18 18:52 Disposition/Present on Arrival - Present on Arrival Any Indicators Present on Arrival: No History of DVT/PE: No History of Uncontrolled Diabetes: No Urinary Catheter: No History of Decub. Ulcer: No History Surgical Site Infection Following: None - Disposition Have Diagnosis and Disposition been Completed?: Yes Diagnosis: COPD exacerbation Disposition Time: 20:26 Condition: STABLE
[2018-08-15 19:35] LABS: BASO # 0.05 K/mm3 (0.0-2.0); BASO % 0.7 % (0.0-3.0); EOS # 0.5 (0.0-0.7); EOS % 6.3 % (1.5-5.0); HEMOGLOBIN 11.1 g/dL (12.0-16.0); LYMPH # 1.3 (1.2-3.4); LYMPH % 16.9 % (22.0-35.0); MEAN CELL VOLUME 87.3 fl (80.0-105.0); MEAN CORPUSCULAR HEMOGLOBIN 27.5 pg (25.0-35.0); MEAN CORPUSCULAR HGB CONC 31.5 g/dl (31.0-37.0); MEAN PLATELET VOLUME 11.5 fl (7.0-11.0); MONO # 0.2 (0.1-0.6); MONO % 2.3 % (1.0-6.0); RBC 4.03 10^6/uL (3.5-6.1); RED CELL DISTRIBUTION WIDTH 14.7 % (11.5-14.5); WHITE BLOOD COUNT 7.5 10^3/uL (4.5-11.0)
[2018-08-15 19:38] LABS: URINE APPEARANCE CLEAR (CLEAR); URINE BILIRUBIN NEGATIVE (NEGATIVE); URINE BLOOD NEGATIVE (NEGATIVE); URINE COLOR LIGHT YELLOW (YELLOW); URINE GLUCOSE (UA) NEGATIVE (NEGATIVE); URINE LEUKOCYTE ESTERASE TRACE Leu/uL (NEGATIVE); URINE PROTEIN NEGATIVE mg/dL (<30 mg/dL); URINE UROBILINOGEN 0.2 E.U./dL (<1 E.U./dL)
[2018-08-15 19:44] LABS: INR 1.03; PARTIAL THROMBOPLASTIN TIME 37.8 Seconds (26.9-38.3); PROTHROMBIN TIME 11.4 SECONDS (9.4-12.5)
[2018-08-15 19:45] LABS: URINE EPITHELIAL CELLS 0 - 2 /hpf (0-5); URINE WBC 0 - 2 /hpf (0-6)
[2018-08-15 19:45] LABS: ALB/GLOB RATIO 1.3 (1.1-1.8); ALBUMIN 4.1 g/dL (3.0-4.8); CALCIUM 9.8 mg/dL (8.4-10.5)
[2018-08-15 19:56] LABS: TROPONIN I 0.02 ng/mL
[2018-08-15] MEDS ORDERED: Albuterol-Ipratrop 3 mg / 0.5 (3 ml) UD IH PRN (21:23)
[2018-08-16 03:35] VITALS: BMI 26.4
[2018-08-16] MEDS ORDERED: Albuterol-Ipratrop 3 mg / 0.5 (3 ml) UD IH PRN (07:13)
[2018-08-16] MEDS: Albuterol-Ipratrop 3 mg / 0.5 (3 ml) UD IH SCH ×3 (07:40→21:09)
[2018-08-16] MEDS: Budesonide 0.5 mg/2 ml Inhal Susp UD IH SCH ×2 (07:40→21:09)
--- NOTE | 2018-08-16 08:50 | CON ---
DATE: 08/16/2018 PULMONARY CONSULTATION REFERRING PHYSICIAN: Dr. Rickey York REASON FOR CONSULTATION: Chronic obstructive pulmonary disease. HISTORY OF PRESENT ILLNESS: The patient is a 78-year-old female, with past medical history significant for advanced chronic obstructive pulmonary disease, on home oxygen; nonischemic cardiomyopathy; chronic renal insufficiency; who presents to [facility] with a one-day history of increasing shortness of breath at rest, dyspnea on exertion and cough. There is no history of significant sputum production. There is no history of chest pain, coughing up of blood, or chest pain - brought on with deep respirations. There is no history of temperatures, chills or infectious exposure. There is no history of night sweats, weight loss or appetite change prior to the above events. No history of leg or calf pains. No history of syncope or diaphoresis. No history of recent travel or trauma. REVIEW OF SYSTEMS: No history of nausea, vomiting or diarrhea. No acute urinary symptoms. No new neurologic complaints. Rest of review of systems is negative. ALLERGIES: TO PENICILLIN AND LYRICA. SOCIAL HISTORY: Positive for tobacco, negative for alcohol. FAMILY HISTORY: No inheritable diseases. HOME MEDICATIONS: Include prednisone, Lasix, aspirin, DuoNeb. PHYSICAL EXAMINATION: GENERAL: The patient appears comfortable this morning. She is not short of breath at rest. She is not using accessory muscles for breathing. VITALS: Temperature is 98.7, pulse 67, respirations 18, blood pressure 131/61. Oxygen saturation on nasal cannula is 95%. HEENT: Normocephalic, atraumatic. No JVD. CARDIOVASCULAR: Systolic ejection murmur at the lower left sternal border. No S3 gallop. LUNGS: Decreased breath sounds at the bases. Mild rhonchi and wheezing bilaterally. EXTREMITIES: Mild edema. No cyanosis, no clubbing. Calves are nontender to palpation. GASTROINTESTINAL: Abdomen is soft, nontender, nondistended. Bowel sounds are positive. SKIN: No acute rash. NEUROLOGIC: Exam limited at the present time. PERTINENT LABORATORY DATA: Chest x-ray was done last night and reviewed. The chest x-ray reveals no new or significant infiltrates. Official results are pending. CBC: White count 7.5K, hemoglobin 11.1, hematocrit 35.2, platelets of 207,000. Complete metabolic profile: BUN 42, creatinine 1.8, glucose 158. B-type natriuretic peptide 1350. Rest of the metabolic profile is within normal limits. IMPRESSION: 1. Acute bronchitis. 2. Advanced chronic obstructive pulmonary disease, on home oxygen. 3. Obstructive sleep apnea - noncompliant with CPAP for many years. 4. Chronic renal insufficiency. 5. Nonischemic cardiomyopathy. PLAN: The patient presents to [facility] with a one-day history of worsening pulmonary symptoms. I did speak with the patient at length last night. The patient was audibly wheezing over the phone. I then recommended that she come to [facility] for admission. I did review the chest x-ray as above. The chest x-ray shows no acute or significant changes. I have also reviewed the laboratory data. There is no leukocytosis noted. There is no history of temperatures. On physical exam, there is mild to moderate bronchospasm noted. I will start the patient on DuoNeb treatments, inhaled Pulmicort and intravenous steroids. Due to her age and above diagnoses, I will also start oral antibiotic therapy. The patient does state to feeling much better this morning and is clinically improved. Additional pulmonary intervention will be based on the clinical status of the patient. I will discuss the above with Dr. York. Thank you very much for this pulmonary consultation. Gonsalo Lawrence MD [facility]
--- NOTE | 2018-08-16 09:31 | RAD ---
Date of service: 08/15/2018 HISTORY: sob COMPARISON: 06/03/2018 FINDINGS: LUNGS: No active pulmonary disease. PLEURA: No significant pleural effusion identified, no pneumothorax apparent. CARDIOVASCULAR: Aortic calcification Normal cardiac size. No pulmonary vascular congestion. OSSEOUS STRUCTURES: No significant abnormalities. VISUALIZED UPPER ABDOMEN: Normal. OTHER FINDINGS: None. IMPRESSION: No active disease.
[2018-08-16] MEDS: MethylPREDNISolone 40 mg Vial IVP SCH ×2 (09:36→21:39)
[2018-08-16] MEDS ORDERED: levoFLOXacin 500 MG TAB PO SCH (10:00)
--- NOTE | 2018-08-16 10:05 | CP.PCM.APN ---
Subjective - Date & Time of Evaluation Date of Evaluation: 08/16/18 Time of Evaluation: 09:15 - Subjective Subjective: pt seen and examined at bedside, pt reports she had sob and wheezing yesterday but feels better today. at this time she denies sob or cp but does report a cough. Review of Systems - Review of Systems All systems: reviewed and no additional remarkable complaints except - Respiratory Respiratory: Cough, Dyspnea Objective - Vital Signs/Intake and Output Vital Signs (last 24 hours): Temp Pulse Resp BP Pulse Ox 98 F 77 20 125/64 96 08/16/18 08:52 08/16/18 08:52 08/16/18 08:52 08/16/18 08:52 08/16/18 08:52 Intake and Output: 08/16/18 08/16/18 06:59 18:59 Intake Total 240 Balance 240 - Medications Medications: Current Medications Albuterol/Ipratropium (Duoneb 3 Mg/0.5 Mg (3 Ml) Ud) 3 ml IH Q2H PRN PRN Reason: Wheezing Albuterol/Ipratropium (Duoneb 3 Mg/0.5 Mg (3 Ml) Ud) 3 ml IH [id number] [facility] Last Admin: 08/16/18 07:40 Dose: 3 ml Albuterol/Ipratropium (Duoneb 3 Mg/0.5 Mg (3 Ml) Ud) 3 ml IH Q2H PRN PRN Reason: Shortness of Breath Budesonide (Pulmicort Respules) 0.5 mg IH [id number] [facility] Last Admin: 08/16/18 07:40 Dose: 0.5 mg Levofloxacin (Levaquin) 500 mg PO DAILY [facility]; Protocol Last Admin: 08/16/18 09:36 Dose: 500 mg Methylprednisolone (Solu-Medrol) 40 mg IVP Q12 [facility] Last Admin: 08/16/18 09:36 Dose: 40 mg - Labs Labs: 08/15/18 19:20 08/15/18 19:20 PT 11.4 SECONDS (9.4-12.5) 08/15/18 19:20 INR 1.03 08/15/18 19:20 APTT 37.8 Seconds (26.9-38.3) 08/15/18 19:20 - Constitutional Appears: Non-toxic - Head Exam Head Exam: NORMOCEPHALIC - Eye Exam Eye Exam: Normal appearance, PERRL - Respiratory Exam Respiratory Exam: Decreased Breath Sounds, Wheezes, NORMAL BREATHING PATTERN - Cardiovascular Exam Cardiovascular Exam: +S1, +S2 - GI/Abdominal Exam GI & Abdominal Exam: Soft, Normal Bowel Sounds - Extremities Exam Extremities Exam: Normal Capillary Refill - Back Exam Back Exam: NORMAL INSPECTION - Neurological Exam Neurological Exam: Alert, Awake - Psychiatric Exam Psychiatric exam: Normal Affect, Normal Mood - Skin Skin Exam: Dry, Intact Assessment and Plan - Assessment and Plan (Free Text) Plan: Impressions Chest X-Ray 08/15/18 18:50 IMPRESSION: No active disease. Medication Orders 08/15/18 21:23 Albuterol/Ipratropium [Duoneb 3 mg/0.5 mg (3 ml) UD] 3 ml IH Q2H PRN 08/16/18 07:13 Albuterol/Ipratropium [Duoneb 3 mg/0.5 mg (3 ml) UD] 3 ml IH Q2H PRN 08/16/18 08:00 Albuterol/Ipratropium [Duoneb 3 mg/0.5 mg (3 ml) UD] 3 ml IH [id number] Budesonide [Pulmicort Respules] 0.5 mg IH [id number] 08/16/18 10:00 levoFLOXacin [Levaquin] 500 mg PO DAILY Levofloxacin Indication: Chronic Bronchitis methylPREDNISolone [SOLU-Medrol] 40 mg IVP Q12 69 yr old with pmh sig for copd on home 02, chf, dm2 who states that yesterday she had sob and wheezing despite use of her regualr nebulizer treatments. pt was directed to the ED by her pulmonogist and is now admitted for further mgmt of her copd exacerbation with Iv steriods. discuss with nurse and cm, will continue to follow clinically. BPCI/TIC - BPCIA/TIC Educated pt/family on BPCIA/CIR/Med to Bed Programs: Yes Flyers given, including [facility] Beneficiary letter: Yes Pt/family verbalized understanding & agreed to program: Yes
[2018-08-16] MEDS: SIMBRINZA BOTHEYES SCH ×2 (11:59→17:00)
[2018-08-16] MEDS: EYE BOTHEYES SCH ×2 (11:59→17:00)
[2018-08-16] MEDS: SYSTANE RIGHTEYE SCH ×2 (11:59→17:00)
[2018-08-16] MEDS: EYE RIGHTEYE SCH ×2 (11:59→17:00)
[2018-08-16] MEDS: Tobramycin 0.3% OPHT SOLN OD SCH ×2 (12:10→17:22)
[2018-08-16] MEDS: Pantoprazole 40 mg EC Tab PO SCH (12:10)
--- NOTE | 2018-08-16 16:13 | CARD ---
APPROVED REPORT Date of service: 08/15/2018 EKG Measurement Heart [id number] <Conclusion> Normal sinus rhythm Left axis deviation Left ventricular hypertrophy with QRS widening Poor R wave progression in Precordial leads Abnormal ECG
[2018-08-16] MEDS ORDERED: OXYGEN INH SCH (22:00)
[2018-08-16] MEDS: Insulin Reg-HIGH-Coverage SC SCH (22:05)
[2018-08-17] MEDS: Albuterol-Ipratrop 3 mg / 0.5 (3 ml) UD IH SCH ×4 (01:59→19:49)
[2018-08-17] MEDS: Budesonide 0.5 mg/2 ml Inhal Susp UD IH SCH ×2 (08:18→19:49)
[2018-08-17] MEDS: Insulin Reg-HIGH-Coverage SC SCH ×3 (08:43→18:10)
[2018-08-17] MEDS: MethylPREDNISolone 40 mg Vial IVP SCH ×2 (09:34→21:24)
[2018-08-17] MEDS: Multivitamin Therapeutic Tab PO SCH (09:35)
[2018-08-17] MEDS: Pantoprazole 40 mg EC Tab PO SCH (09:35)
[2018-08-17] MEDS: SYSTANE RIGHTEYE SCH ×2 (09:36→18:02)
[2018-08-17] MEDS: EYE RIGHTEYE SCH ×2 (09:36→18:02)
[2018-08-17] MEDS: EYE BOTHEYES SCH ×2 (09:37→18:01)
[2018-08-17] MEDS: SIMBRINZA BOTHEYES SCH ×2 (09:37→18:01)
--- NOTE | 2018-08-17 10:15 | PN ---
DATE: 08/17/2018 PULMONARY NOTE SUBJECTIVE: The patient appears quite comfortable this morning. She is not short of breath at rest. PHYSICAL EXAMINATION: VITAL SIGNS: Temperature is 98.1, pulse is 90, respirations 18, blood pressure 151/61. Oxygen saturation on nasal cannula is 97% - 98%. HEENT: Normocephalic, atraumatic. No JVD. CARDIOVASCULAR: Systolic ejection murmur at the lower left sternal border. No S3 gallop. LUNGS: Improved breath sounds at the bases. Less rhonchi. No wheezing this morning. EXTREMITIES: Mild edema. No cyanosis, no clubbing. Calves are nontender to palpation. GASTROINTESTINAL: Abdomen is soft, nontender, and nondistended. Bowel sounds are positive. SKIN: No acute rash. NEUROLOGIC: Exam limited at the present time. IMPRESSION: 1. Acute bronchitis. 2. Advanced chronic obstructive pulmonary disease, on home oxygen. 3. Obstructive sleep apnea - noncompliant with continuous positive airway pressure for many years. 4. Chronic renal insufficiency. 5. Nonischemic cardiomyopathy. PLAN: The patient appears very comfortable this morning. She is not short of breath at rest. She does state to feeling much, much better overall. On physical exam, her bronchospasm is clearly less. In addition, the alveolar-arterial gradient is also less. I will continue the current nebulizer treatments and decrease the intravenous steroids this morning. Hopefully, we can change to oral therapy in the next 24 to 48 hours. I will also continue with the oral antibiotic therapy. There are no temperatures noted. There is no leukocytosis. Clinical status of the patient appears significantly improved - compared to her initial presentation. I have spoken with the patient multiple times in the past(and present) concerning her noncompliance with CPAP. She shows no interest in repeating her sleep study or using her CPAP. In spite of her clinical improvement, the future status/prognosis for this elderly patient with advanced lung disease does remain somewhat guarded. I will discuss the above with the attending physician. Gonsalo Lawrence MD [facility]
--- NOTE | 2018-08-17 19:20 | HP ---
DATE OF EXAM: 08/17/2018 HISTORY OF PRESENT ILLNESS: The patient is a 78-year-old female who presented to the emergency room with shortness of breath and wheezing. She has had several admissions in the past for COPD exacerbation. Apparently, the patient awoke in the wee hours of the morning, was short of breath, treated herself with a nebulizer treatment. She was wearing her nasal oxygen as she always does overnight. Her symptoms waxed and waned during the course of the day; she therefore became concerned, presented to the emergency room, is evaluated and admitted. PAST MEDICAL HISTORY: She is known to have a history of chronic obstructive pulmonary disease, non-insulin dependent diabetes mellitus. She is status post cataract surgery. She is status post left total knee replacement. She has a history of a fractured left upper extremity in the past, status post cholecystectomy. ALLERGIES: SHE IS KNOWN TO BE ALLERGIC TO PENICILLIN, WHICH CAUSED ANAPHYLAXIS IN THE PAST, LYRICA BROUGHT ON A RASH. MEDICATIONS: At the time of admission included DuoNeb nebulizer treatments every 4 hours as needed, Lasix 40 mg twice a day, aspirin 81 mg daily, Simbrinza 0.2%/1.0% eye drops bilaterally twice a day, multivitamins, prednisone 10 mg once a day, and omeprazole 40 mg once a day. SOCIAL HISTORY: The patient never smoked. She is a nonalcoholic drinker. She is a . REVIEW OF SYSTEMS: Otherwise unremarkable. The patient was scheduled to fly to [place] to visit her daughter in 2 days. PHYSICAL EXAMINATION GENERAL: The patient is awake, alert, and oriented. VITAL SIGNS: She is afebrile. Blood pressure is 138/87, heart rate is 80. HEENT: Head, eyes, ears, nose and throat are unremarkable. NECK: Supple with no lymphadenopathy. No goiter. CARDIOPULMONARY: Heart is regular. No murmurs appreciated. LUNGS: Clear. No wheezing or rhonchi appreciated; however, the breath sounds are short and shallow. ABDOMEN: Soft and nontender with no organomegaly. EXTREMITIES: Free of cyanosis, clubbing or edema. NEUROLOGIC: The patient is awake, alert, and oriented with no focal neurological signs. LABORATORY DATA: White blood cell count is 7.5, hemoglobin and hematocrit are 11.1 and 35.2 respectively, platelet count is 207. Sodium is 139, potassium 4.4, blood urea nitrogen 42, creatinine 1.8, glucose is 158. BNP is mildly elevated at 1350. IMPRESSION: So, the patient is admitted with the diagnosis of chronic obstructive pulmonary disease exacerbation. PLAN: Dr. Lawrence, her medical associate is called to consult. The patient will be reevaluated in the morning. Taj York MD
--- NOTE | 2018-08-17 22:44 | PN ---
DATE: 08/17/2018 SUBJECTIVE: The patient was seen this morning in room 376, bed 2, resting comfortably in bed, in good spirits, in no acute distress, breathing more easily. She said she was recently seen by her stock mover, Dr. Lawrence, and is hoping for discharge home tomorrow. PHYSICAL EXAM: Lungs: show good aeration on the right and left with no rales, no wheezes, no rhonchi. Her extremities and abdomen are moderately overweight. No significant edema or palpable masses. IMPRESSION: 1. Chronic obstructive pulmonary disease/asthma. 2. History of congestive heart failure. 3. Diabetes. 4. Obesity. PLAN: Continue current medications and reduce the dose of steroids. Probable discharge to home tomorrow. Case discussed with Case Management. Pulmonary note appreciated. Rickey York MD [facility]
[2018-08-18] MEDS: Albuterol-Ipratrop 3 mg / 0.5 (3 ml) UD IH SCH ×2 (01:13→08:03)
[2018-08-18] MEDS: Insulin Reg-HIGH-Coverage SC SCH ×2 (03:07→07:40)
[2018-08-18 06:58] LABS: HEMOGLOBIN 10.7 g/dL (12.0-16.0); LYMPH # 0.5 (1.2-3.4); LYMPH % 6.5 % (22.0-35.0); MEAN CELL VOLUME 87.5 fl (80.0-105.0); MEAN CORPUSCULAR HEMOGLOBIN 27.3 pg (25.0-35.0); MEAN CORPUSCULAR HGB CONC 31.2 g/dl (31.0-37.0); MEAN PLATELET VOLUME 12.1 fl (7.0-11.0); MONO # 0.2 (0.1-0.6); MONO % 2.3 % (1.0-6.0); PLATELET COUNT 207 10^3/uL (120.0-450.0); RBC 3.92 10^6/uL (3.5-6.1); RED CELL DISTRIBUTION WIDTH 14.8 % (11.5-14.5); WHITE BLOOD COUNT 8.1 10^3/uL (4.5-11.0)
[2018-08-18 07:52] LABS: CALCIUM 9.4 mg/dL (8.4-10.5)
[2018-08-18] MEDS: Budesonide 0.5 mg/2 ml Inhal Susp UD IH SCH (08:03)
[2018-08-18 08:11] LABS: LYMPHOCYTE 3 % (22.0-35.0); NEUTROPHIL 97 % (50.0-70.0); PLATELET ESTIMATE NORMAL (NORMAL)
[2018-08-18 09:09] VITALS: RESP 20
[2018-08-18] MEDS: EYE BOTHEYES SCH (11:16)
[2018-08-18] MEDS: SIMBRINZA BOTHEYES SCH (11:16)
[2018-08-18] MEDS: Pantoprazole 40 mg EC Tab PO SCH (11:17)
[2018-08-18] MEDS: SYSTANE RIGHTEYE SCH (11:18)
[2018-08-18] MEDS: EYE RIGHTEYE SCH (11:18)
[2018-08-18] MEDS: Multivitamin Therapeutic Tab PO SCH (11:38)
[2018-08-18 12:14] VITALS: BP 128/77; PULSE 80; TEMP 98.2; O2SAT 98
--- NOTE | 2018-08-18 13:24 | PN ---
DATE: 08/18/2018 SUBJECTIVE: The patient appears very comfortable this morning. She is not short of breath at rest. PHYSICAL EXAMINATION: VITAL SIGNS: Temperature 98, pulse 53, respirations 18, blood pressure 125/65. Oxygen saturation on nasal cannula is 95-96%. HEENT: Normocephalic, atraumatic. NECK: No JVD. CARDIOVASCULAR: Systolic ejection murmur at the lower left sternal border. No S3 gallop. LUNGS: Clear bilaterally this morning. EXTREMITIES: Mild edema. No cyanosis. No clubbing. Calves are nontender to palpation. GI: Abdomen is soft, nontender and nondistended. Bowel sounds are positive. SKIN: No acute rash. NEUROLOGIC: Exam limited at the present time. IMPRESSION: 1. Acute bronchitis. 2. Advanced chronic obstructive pulmonary disease, on home oxygen. 3. Obstructive sleep apnea - noncompliant with CPAP for many years. 4. Chronic renal insufficiency. 5. Nonischemic cardiomyopathy. PLAN: The patient appears very comfortable this morning. She is not short of breath at rest. She is much less short of breath with exertion. She does state to feeling much, much better overall. On physical exam, her lungs are now clear. In addition, there is no significant alveolar-arterial gradient. I will continue with the current nebulizer treatments and change to oral steroids this morning. The patient also remains on oral antibiotic therapy. There are no temperatures noted. There is no leukocytosis. Clinical status of the patient is significantly improved - compared to the initial presentation. However, given the above, the future status/prognosis for this elderly patient-- with advanced chronic obstructive pulmonary disease - does remain guarded. The patient is for discharge in the near future. I will discuss the above with the attending physician. Gonsalo Lawrence MD [facility]
--- NOTE | 2018-08-21 23:40 | DS ---
HISTORY OF PRESENT ILLNESS: This is a 78-year-old woman I have known for several years, usually seen in the office by Dr. Taj York who presented to the emergency room with respiratory distress, shortness of breath. She was treated in the ER with steroids, nebulizers, improved clinically and comes to the medical floor. COURSE OF HOSPITAL STAY: She was followed by pulmonary consultants, given steroids, inhalers, IV antibiotics. Respiratory status improved with some diuretics. She improved as well. She was ambulatory, in good spirits, and ready for discharge to home after her 3-day stay. She was cleared by Pulmonary, advised to take a tapering dose of steroids, which was prescribed. Home medications were reviewed, a written list was given to the patient, and she was ready for discharge. FINAL DISCHARGE DIAGNOSES 1. Chronic obstructive pulmonary disease. 2. Diabetes. 3. Obesity. Rickey York MD
== END 2018-08-18 14:02 | disposition home or self-care (01) | DRG 191 ==
LOC: ED 18:06 → ERH 20:26 → 3RSO 22:38
PROVIDERS: ADMIT Internal Medicine; ATTEND Internal Medicine
PROC: 3E0F7GC Introduction of Other Therapeutic Substance into Respiratory Tract, Via Natural or Artificial Opening (ICD-10-PCS; principal; 2018-08-16)
DX: J44.1 Chronic obstructive pulmonary disease with (acute) exacerbation (principal); I42.9 Cardiomyopathy, unspecified; I13.0 Hypertensive heart and chronic kidney disease with heart failure and stage 1 through stage 4 chronic kidney disease, or unspecified chronic kidney disease; J20.9 Acute bronchitis, unspecified; J44.0 Chronic obstructive pulmonary disease with (acute) lower respiratory infection; G47.33 Obstructive sleep apnea (adult) (pediatric); Z99.81 Dependence on supplemental oxygen; I50.9 Heart failure, unspecified; N18.9 Chronic kidney disease, unspecified; E11.22 Type 2 diabetes mellitus with diabetic chronic kidney disease; E66.9 Obesity, unspecified; H91.93 Unspecified hearing loss, bilateral; Z79.82 Long term (current) use of aspirin; Z91.19 Patient's noncompliance with other medical treatment and regimen; Z97.4 Presence of external hearing-aid; Z96.652 Presence of left artificial knee joint; Z88.0 Allergy status to penicillin